=== PATIENT | female | born 1985 | race Two or more races ===

== ENCOUNTER 2017-08-01 13:39 | Inpatient (IN) | payer BC, OTHER ==
[2017-08-01] VITALS (10 sets, daily range): BP systolic 90–109; BP diastolic 52–80; PULSE 91–118; RESP 16–20; TEMP 97.4–98.9; O2SAT 97–100
[~2017-08-01] VITALS: Ht 167.6 cm; Wt 91.8 kg
[~2017-08-01 13:39] MED LIST: BROM5CAP PO; SPIR100 PO; VIIB40TA PO
[2017-08-01] MEDS ORDERED: SODIUM CHLOR 0.9% 1000 ML INJ 1,000 ML IV SCH (16:00)
[2017-08-01 16:33] LABS: HEMATOCRIT 23.6 % (35.0-46.0); HEMOGLOBIN 7.8 GM/DL (11.6-15.3); MEAN CELL VOLUME 114.7 FL (80.0-100.0); MEAN CORPUSCULAR HEMOGLOBIN 37.7 PG (27.0-34.0); MEAN CORPUSCULAR HGB CONC 32.9 % (32.0-36.0); MEAN PLATELET VOLUME 9.2 FL (7.0-11.0); PLATELET COUNT 193 TH/MM3 (150-450); RED BLOOD COUNT 2.06 MIL/MM3 (4.00-5.30); RED CELL DISTRIBUTION WIDTH 17.3 % (11.6-17.2); WHITE BLOOD COUNT 13.9 TH/MM3 (4.0-11.0)
[2017-08-01 16:41] LABS: INTERNATIONAL NORMALIZED RATIO 1.5 RATIO
--- NOTE | 2017-08-01 16:48 | PD ---
HPI Chief Complaint: Abdominal Pain Time Seen by Provider: 15:44 Travel History International Travel<30 days: No Contact w/Intl Traveler<30days: No Traveled to known affect area: No History of Present Illness HPI Patient is a 32-year-old female with history of asthma, benign pituitary adenoma , who presents the emergency room with complaints of abdominal pain with nausea and vomiting. Patient reports that for the over the past 9 months, she has been having abdominal pain with nausea and vomiting. Patient reports that she would have 3-4 episodes of nausea and vomiting per day. Patient reports that she did follow-up with her primary care doctor for this, she was worked up for hepatitis which was negative. The lab work was only positive for hyperlipidemia. Her primary care doctor did give her a prescription for a right upper quadrant ultrasound, patient reports that she has not gone for the ultrasound yet as she thought that the symptoms would resolve as they wax and wane. Patient reports that she became more concerned of her abdominal pain as she noticed that her skin turned yellow on Wednesday. Patient reports that yesterday, she appeared more bright yellow and became concerned. Patient currently complains of moderate diffuse abdominal pain with nausea and vomiting. Patient endorses that she does drink heavily on weekends, she usually has about 10 shots of heavy alcohol on , Fridays and Saturdays. PFSH Past Medical History Asthma: Yes Depression: Yes Diminished Hearing: No Endocrine: Yes (pituitary tumor) Respiratory: Yes (htn on meds) ?: Not LMP: few months ago irregular : 0 Past Surgical History Oral Surgery: Yes (tooth extraction) Tonsillectomy: Yes (AGE 3) Social History Alcohol Use: Yes (socially, beer or mix drinks) Tobacco Use: Yes (1 CIG PER MONTH) Substance Use: No Allergies-Medications (Allergen,Severity, Reaction): Coded Allergies: hydrocodone (Unverified Adverse Reaction, Unknown, N/V, 08/01/17) pt states does not have a allergy to this medicaton Jfoley 08/01/17 Reported Meds & Prescriptions Reported Meds & Active Scripts Active No Active Prescriptions or Reported Medications Review of Systems General / Constitutional: No: Fever Eyes: No: Visual changes HENT: No: Headaches Cardiovascular: No: Chest Pain or Discomfort Respiratory: No: Shortness of Breath Gastrointestinal: Positive: Nausea, Vomiting, Abdominal Pain Genitourinary: No: Dysuria Musculoskeletal: No: Pain Skin: No Rash Neurologic: No: Weakness Psychiatric: No: Depression Endocrine: No: Polydipsia Hematologic/Lymphatic: No: Easy Bruising Physical Exam Narrative GENERAL: Moderate distress SKIN: Focused skin assessment warm/dry. Patient jaundice HEAD: Atraumatic. Normocephalic. EYES: Pupils equal and round. Positive scleral icterus. No injection or drainage. ENT: No nasal bleeding or discharge. Mucous membranes pink and moist. NECK: Trachea midline. No JVD. CARDIOVASCULAR: Regular rate and rhythm. No murmur appreciated. RESPIRATORY: No accessory muscle use. Clear to auscultation. Breath sounds equal bilaterally. GASTROINTESTINAL: Abdomen soft, diffuse abdominal pain with greatest tenderness to the right upper quadrant, nondistended. Hepatic and splenic margins not palpable. MUSCULOSKELETAL: No obvious deformities. No clubbing. No cyanosis. No edema. NEUROLOGICAL: Awake and alert. No obvious cranial nerve deficits. Motor grossly within normal limits. Normal speech. PSYCHIATRIC: Appropriate mood and affect; insight and judgment normal. Data Data Last Documented VS Vital Signs Date Time Temp Pulse Resp B/P (MAP) Pulse Ox O2 Delivery O2 Flow Rate FiO2 08/01/17 18:00 100 16 97/57 (70) 97 Room Air 08/01/17 13:48 98.9 Orders Orders Urinalysis - C+S If Indicated (08/01/17 14:01) Ed Urine Pregnancytest Poc (08/01/17 14:01) Complete Blood Count With Diff (08/01/17 16:00) Comprehensive Metabolic Panel (08/01/17 16:00) Lipase (08/01/17 16:00) Prothrombin Time / Inr (Pt) (08/01/17 16:00) Act Partial Throm Time (Ptt) (08/01/17 16:00) Us Abdomen Gallbladder (08/01/17 ) Iv Access Insert/Monitor (08/01/17 16:00) Ecg Monitoring (08/01/17 16:00) Oximetry (08/01/17 16:00) NPO (08/01/17 16:00) Sodium Chlor 0.9% 1000 Ml Inj (Ns 1000 M (08/01/17 16:00) Sodium Chloride 0.9% Flush (Ns Flush) (08/01/17 16:00) Ketorolac Inj (Toradol Inj) (08/01/17 17:15) Morphine Inj (Morphine Inj) (08/01/17 17:15) Urine Culture (08/01/17 16:50) Ondansetron Inj (Zofran Inj) (08/01/17 17:30) Potassium Chlor 20 Meq Premix (Kcl 20 Me (08/01/17 17:45) Comprehensive Metabolic Panel (08/02/17 06:00) Admit Order (Ed Use Only) (08/01/17 17:54) Mri Mrcp W/O Contrast (08/01/17 ) Admit To Inpatient (08/01/17 ) Vital Signs (Adult) FOX.Q4H (08/01/17 17:53) Activity Oob With Assistance (08/01/17 17:53) Inpatient Certification (08/01/17 ) Blood Culture (08/01/17 17:58) Complete Blood Count With Diff (08/01/17 17:58) Ciprofloxacin 400 Mg Premix (Cipro 400 M (08/01/17 20:00) Metronidazole 500 Mg Inj (Flagyl 500 Mg (08/01/17 20:00) Ophthalmic Asst / Telemetry FOX.Q8H (08/01/17 18:00) Alcohol Withdrawal Asmt-Ciwa Q4HX18 (08/01/17 18:00) Flumazenil Inj (Romazicon Inj) (08/01/17 18:00) Lorazepam (Ativan) (08/01/17 18:00) Lorazepam Inj (Ativan Inj) (08/01/17 18:00) Lorazepam (Ativan) (08/01/17 18:00) Lorazepam Inj (Ativan Inj) (08/01/17 18:00) Lorazepam Inj (Ativan Inj) (08/01/17 18:00) Lorazepam Inj (Ativan Inj) (08/01/17 18:00) Diet Npo Except Meds (08/01/17 Dinner) Npo After Midnight W/ Po Meds (08/01/17 Dinner) Magnesium (Mg) (08/01/17 16:10) Morphine Inj (Morphine Inj) (08/01/17 18:00) Labs Laboratory Tests Test 08/01/17 16:10 08/01/17 16:50 08/01/17 18:00 White Blood Count 13.9 TH/MM3 12.5 TH/MM3 Red Blood Count 2.06 MIL/MM3 1.85 MIL/MM3 Hemoglobin 7.8 GM/DL 7.4 GM/DL Hematocrit 23.6 % 21.2 % Mean Corpuscular Volume 114.7 FL 115.1 FL Mean Corpuscular Hemoglobin 37.7 PG 40.2 PG Mean Corpuscular Hemoglobin Concent 32.9 % 34.9 % Red Cell Distribution Width 17.3 % 18.0 % Platelet Count 193 TH/MM3 160 TH/MM3 Mean Platelet Volume 9.2 FL 8.9 FL CBC Comment AUTO DIFF AUTO DIFF Differential Total Cells Counted 100 100 Neutrophils % (Manual) 83 % 86 % Band Neutrophils % 3 % 7 % Lymphocytes % 9 % 4 % Monocytes % 5 % 3 % Neutrophils # (Manual) 12.0 TH/MM3 11.6 TH/MM3 Differential Comment FINAL DIFF MANUAL FINAL DIFF MANUAL Platelet Estimate NORMAL NORMAL Platelet Morphology Comment NORMAL NORMAL Target Cells 1+ Keratocytes OCC Prothrombin Time 15.0 SEC Prothromb Time International Ratio 1.5 RATIO Activated Partial Thromboplast Time 27.1 SEC Blood Urea Nitrogen 7 MG/DL Creatinine 0.82 MG/DL Random Glucose 107 MG/DL Total Protein 7.0 GM/DL Albumin 2.5 GM/DL Calcium Level 8.6 MG/DL Magnesium Level 1.8 MG/DL Alkaline Phosphatase 240 U/L Aspartate Amino Transf (AST/SGOT) 224 U/L Alanine Aminotransferase (ALT/SGPT) 44 U/L Total Bilirubin 13.8 MG/DL Sodium Level 129 MEQ/L Potassium Level 2.3 MEQ/L Chloride Level 84 MEQ/L Carbon Dioxide Level 29.6 MEQ/L Anion Gap 15 MEQ/L Estimat Glomerular Filtration Rate 80 ML/MIN Lipase 375 U/L Urine Collection Type CLEAN CATCH Urine Color BROWN Urine Turbidity CLOUDY Urine pH 6.5 Urine Specific [place] 1.025 Urine Protein 100 mg/dL Urine Glucose (UA) 100 mg/dL Urine Ketones 15 mg/dL Urine Occult Blood TRACE Urine Nitrite POS Urine Bilirubin LARGE Urine Urobilinogen GREATER/EQUAL 8.0 MG/DL Urine Leukocyte Esterase TRACE Urine WBC 3-5 /hpf Urine Squamous Epithelial Cells 0-5 /hpf Urine Renal Epithelial Cells > 8 /hpf Urine Bacteria OCC /hpf Microscopic Urinalysis Comment CULTURE INDICATED Urine Collection Time 16:50 Stomatocytes 1+ MDM Medical Decision Making Medical Screen Exam Complete: Yes Emergency Medical Condition: Yes Medical Record Reviewed: Yes Interpretation(s) Vital Signs Date Time Temp Pulse Resp B/P (MAP) Pulse Ox O2 Delivery O2 Flow Rate FiO2 08/01/17 13:48 98.9 118 16 109/80 (90) 100 Differential Diagnosis Alcoholic hepatitis, primary biliary cholangitis, end-stage liver disease, acute cholangitis, viral hepatitis, biliary obstruction, Narrative Course During the course of the patients emergency department visit, the patients history, examination, and differential diagnosis were reviewed with the patient. The patient was placed on a cardiac care unit nurse with oximetry and frequent blood pressure monitoring. The patient had an IV access obtained and blood work sent for analysis. The patient was initially provided IV fluids as well as morphine for pain as per patient: she does not have allergy to hydrocodone, she asked for it not be given to her the last time because of the medication she was taking The patients laboratory studies were reviewed and remarkable for Laboratory Tests Test 08/01/17 16:10 08/01/17 16:50 White Blood Count 13.9 TH/MM3 (4.0-11.0) Red Blood Count 2.06 MIL/MM3 (4.00-5.30) Hemoglobin 7.8 GM/DL (11.6-15.3) Hematocrit 23.6 % (35.0-46.0) Mean Corpuscular Volume 114.7 FL (80.0-100.0) Mean Corpuscular Hemoglobin 37.7 PG (27.0-34.0) Mean Corpuscular Hemoglobin Concent 32.9 % (32.0-36.0) Red Cell Distribution Width 17.3 % (11.6-17.2) Platelet Count 193 TH/MM3 (150-450) Mean Platelet Volume 9.2 FL (7.0-11.0) CBC Comment AUTO DIFF Differential Total Cells Counted 100 Neutrophils % (Manual) 83 % (16-70) Band Neutrophils % 3 % (0-6) Lymphocytes % 9 % (9-44) Monocytes % 5 % (0-8) Neutrophils # (Manual) 12.0 TH/MM3 (1.8-7.7) Differential Comment FINAL DIFF MANUAL Platelet Estimate NORMAL (NORMAL) Platelet Morphology Comment NORMAL (NORMAL) Target Cells 1+ (NORMAL) Keratocytes OCC (NORMAL) Prothrombin Time 15.0 SEC (9.8-11.6) Prothromb Time International Ratio 1.5 RATIO Activated Partial Thromboplast Time 27.1 SEC (24.3-30.1) Blood Urea Nitrogen 7 MG/DL (7-18) Creatinine 0.82 MG/DL (0.50-1.00) Random Glucose 107 MG/DL (74-106) Total Protein 7.0 GM/DL (6.4-8.2) Albumin 2.5 GM/DL (3.4-5.0) Calcium Level 8.6 MG/DL (8.5-10.1) Alkaline Phosphatase 240 U/L (45-117) Aspartate Amino Transf (AST/SGOT) 224 U/L (15-37) Alanine Aminotransferase (ALT/SGPT) 44 U/L (10-53) Total Bilirubin 13.8 MG/DL (0.2-1.0) Sodium Level 129 MEQ/L (136-145) Potassium Level 2.3 MEQ/L (3.5-5.1) Chloride Level 84 MEQ/L (98-107) Carbon Dioxide Level 29.6 MEQ/L (21.0-32.0) Anion Gap 15 MEQ/L (5-15) Estimat Glomerular Filtration Rate 80 ML/MIN (>89) Lipase 375 U/L (73-393) Urine Collection Type CLEAN CATCH Urine Color BROWN (YELLW/STRAW) Urine Turbidity CLOUDY (CLEAR) Urine pH 6.5 (5.0-8.5) Urine Specific [place] 1.025 (1.002-1.035) Urine Protein 100 mg/dL (NEG-TRACE) Urine Glucose (UA) 100 mg/dL (NEG) Urine Ketones 15 mg/dL (NEG) Urine Occult Blood TRACE (NEG) Urine Nitrite POS (NEG) Urine Bilirubin LARGE (NEG) Urine Urobilinogen GREATER/EQUAL 8.0 MG/DL Urine Leukocyte Esterase TRACE (NEG) Urine WBC 3-5 /hpf (0-5) Urine Squamous Epithelial Cells 0-5 /hpf (0-5) Urine Renal Epithelial Cells > 8 /hpf (NONE) Urine Bacteria OCC /hpf (NONE) Microscopic Urinalysis Comment CULTURE INDICATED Urine Collection Time 16:50 Radiology studies were reviewed and remarkable for Right upper quadrant ultrasound significant for moderate distended gallbladder and common bile duct. These findings are concerning for acute distal common bile duct obstruction. Patient will require admission to the hospital for ERCP /MRCP and for repletion of electrolytes Case reviewed with Dr. Dailey who accepts pt to service, [facility] Patient aware of diagnosis and treatment plan and is agreeable to [facility] case reviewed with Dr. Sofia with GI, will hold on transfer pending MRCP - if patient requires ERCP, then will [facility], if not, will be admitted here at [facility] Narrative Aggregate critical care time was 30 minutes. Time to perform other separately billable procedures was not included in the critical care time. My time did not include minutes spent treating any other patients simultaneously or on activities that did not directly contribute to the patient's treatment. The services I provided to this patient were to treat and/or prevent clinically significant deterioration that could result in: , decompensation, deterioration I provided critical care services requiring my management, as noted below: Chart data review, documentation time, medication orders and management, vital sign assessments/reviewing monitor data, ordering and reviewing lab tests, ordering and interpreting/reviewing x-rays and diagnostic studies, care of the patient and discussion of the patient with the admitting physicians. Diagnosis Primary Impression: Common bile duct (CBD) obstruction Additional Impressions: Transaminitis Anemia Hyperbilirubinemia Hypokalemia Hyponatremia Admitting Information Admitting Physician Requests: Admit Scripts No Active Prescriptions or Reported Meds Yennifer Cohn DO Aug 01, 2017 16:48
[2017-08-01 16:55] LABS: ALBUMIN 2.5 GM/DL (3.4-5.0); ALKALINE PHOSPHATASE 240 U/L (45-117); ALT (GPT) 44 U/L (10-53); AST (GOT) 224 U/L (15-37); BICARBONATE 29.6 MEQ/L (21.0-32.0); BLOOD UREA NITROGEN 7 MG/DL (7-18); CALCIUM 8.6 MG/DL (8.5-10.1); CHLORIDE 84 MEQ/L (98-107); CREATININE 0.82 MG/DL (0.50-1.00); GLOMERULAR FILTRATION RATE 80 ML/MIN (>89); GLUCOSE,RANDOM 107 MG/DL (74-106); SODIUM (NA) 129 MEQ/L (136-145); TOTAL BILIRUBIN ADULT 13.8 MG/DL (0.2-1.0)
[2017-08-01 17:10] LABS: BILIRUBIN, URINE LARGE (NEG); BLOOD, URINE TRACE (NEG); GLUCOSE,URINE 100 mg/dL (NEG); KETONE, URINE 15 mg/dL (NEG); NITRITE,URINE POS (NEG); PH, URINE 6.5 (5.0-8.5); URINE LEUKOCYTE ESTERASE TRACE (NEG)
[2017-08-01 17:12] LABS: URINE COLOR BROWN (YELLW/STRAW)
[2017-08-01 17:15] LABS: BACTERIA, URINE OCC /hpf; RENAL EPITHELIAL CELLS > 8 /hpf; SQUAMOUS EPITHELIAL CELL URINE 0-5 /hpf (0-5)
[2017-08-01] MEDS ORDERED: KETOROLAC TROMETHAMINE 30 MG/ML (IVP) VIAL IV PUSH ONE (17:15)
[2017-08-01] MEDS ORDERED: MORPHINE SULFATE 4 MG/ML INJ IV PUSH ONE (17:15)
[2017-08-01] MEDS ORDERED: ONDANSETRON HCL 4 MG/2 ML VIAL IV PUSH ONE (17:30)
[2017-08-01] MEDS: POTASSIUM CHLOR 20 MEQ PREMIX 100 ML IV SCH ×2 (17:36→20:21)
[2017-08-01 17:37] LABS: BANDS 3 % (0-6); LYMPHOCYTES 9 % (9-44); MONOCYTES 5 % (0-8); POLYS (SEG NEUTROPHILS) 83 % (16-70); TARGET CELLS 1+ (NORMAL)
[2017-08-01 17:38] LABS: KERATOCYTES OCC (NORMAL)
--- NOTE | 2017-08-01 17:41 | RADRPT ---
EXAM DATE/TIME: 08/01/2017 17:01 [facility] COMPARISON: No previous studies available for comparison. INDICATIONS : Right upper quadrant pain. MEDICAL HISTORY : Asthma. Irregular menstrual period. Depression. Pituitary tumor. SURGICAL HISTORY : Tonsillectomy. Tooth extraction. ENCOUNTER: Initial ACUITY: 3 days PAIN SCORE: 10/10 LOCATION: Right upper quadrant MEASUREMENTS: LIVER: 22.2 cm length COMMON DUCT: 12 mm RIGHT KIDNEY: 12.5 x 5.6 x 4.7 cm FINDINGS: LIVER: Diffusely echogenic and enlarged liver without intrahepatic ductal dilatation or gross mass. The port al vein appears to be hepatofugal with diminished flow. COMMON DUCT: No intraluminal mass or stone visualized. GALLBLADDER: Gallbladder is moderately distended with mild diffuse gall bladder wall thickening and contains sludg e dependently. Electrical Test Engineer reports a positive Rojas's sign. PANCREAS: Not well demonstrated. RIGHT KIDNEY: No evidence of hydronephrosis, stone, or mass. CONCLUSION: 1. Hepatomegaly with diffusely echogenic hepatic parenchyma. Diminished hepatofugal flow in the amie l vein. Overall findings may reflect subacute hepatitis versus profound hepatic steatosis versus medi favian liver disease. 2. Moderately distended gallbladder and common bile duct. Findings are concerning for acute distal CB D obstruction. Consider MRCP or ERCP examination for further evaluation. 3. Gallbladder sludge with mild diffuse gallbladder wall prominence. These findings are routinely see n in patients with chronic liver disease and significantly limit overall sonographic sensitivity for acute cholecystitis. Thompson Mcguire MD on August 01, 2017 at 17:31 Board Certified Radiologist. This report was verified electronically.
[2017-08-01] MEDS ORDERED: LORazepam 1 MG TAB PO PRN (18:00)
[2017-08-01] MEDS ORDERED: FLUMAZENIL 0.5 MG/5 ML VIAL IV PUSH PRN (18:00)
[2017-08-01] MEDS ORDERED: LORazepam 2 MG TAB PO PRN (18:00)
[2017-08-01] MEDS ORDERED: LORazepam 2 MG/ML VIAL IV PUSH PRN ×3 (18:00)
[2017-08-01] MEDS ORDERED: CHOLESTYRAMINE 4 GM PACKET PO ONE (18:15)
[2017-08-01 18:16] LABS: HEMATOCRIT 21.2 % (35.0-46.0); HEMOGLOBIN 7.4 GM/DL (11.6-15.3); MEAN CELL VOLUME 115.1 FL (80.0-100.0); MEAN CORPUSCULAR HEMOGLOBIN 40.2 PG (27.0-34.0); MEAN CORPUSCULAR HGB CONC 34.9 % (32.0-36.0); MEAN PLATELET VOLUME 8.9 FL (7.0-11.0); PLATELET COUNT 160 TH/MM3 (150-450); RED BLOOD COUNT 1.85 MIL/MM3 (4.00-5.30); WHITE BLOOD COUNT 12.5 TH/MM3 (4.0-11.0)
[2017-08-01 18:27] LABS: MAGNESIUM 1.8 MG/DL (1.5-2.5)
[2017-08-01 19:15] LABS: BANDS 7 % (0-6); LYMPHOCYTES 4 % (9-44); MONOCYTES 3 % (0-8); NEUTROPHIL # MANUAL DIFF 11.6 TH/MM3 (1.8-7.7); POLYS (SEG NEUTROPHILS) 86 % (16-70); STOMATOCYTES 1+ (NORMAL)
[2017-08-01] MEDS: PANTOPRAZOLE SOD 40 MG DELAYED RELEASE TAB PO SCH (19:21)
[2017-08-01] MEDS ORDERED: 1/2 NS + KCL 20 MEQ INJ 1,000 ML IV SCH (20:00)
[2017-08-01] MEDS ORDERED: SODIUM CHLOR 0.9% 1000 ML INJ 1,000 ML IV ONE (20:00)
[2017-08-01] MEDS: CIPROFLOXACIN 400 MG PREMIX 200 ML IV SCH (20:21)
--- NOTE | 2017-08-01 20:32 | RADRPT ---
EXAM DATE/TIME: 08/01/2017 19:59 [facility] COMPARISON: US ABDOMEN - GALLBLADDER, August 01, 2017, 17:01. INDICATIONS : Obstruction. MEDICAL HISTORY : Pituitary adenoma. SURGICAL HISTORY : Tonsillectomy. ENCOUNTER: Initial ACUITY: 4-6 days PAIN SCORE: 5/10 LOCATION: Right upper quadrant. TECHNIQUE: Multiplanar, multisequence magnetic resonance imaging of the abdomen was performed. High-resolution 3D dataset was utilized to reconstruct maximum-intensity projection (MIP) images. FINDINGS: INTRAHEPATIC BILE DUCTS: Within normal limits. No significant anatomical variant is present. EXTRAHEPATIC BILE DUCTS: Lumbar like appears normal in caliber measuring up to 3 mm. No focal intraductal abnormality. GALLBLADDER: Gallbladder is at least moderately distended without evidence for stone or focal intraluminal abnorma lity. There is trace pericholecystic fluid. LIVER: Liver is diffusely enlarged without focal lesion PANCREAS: The main pancreatic duct is normal in size. There is no significant anatomical variant. Signal inte nsity is within normal limits. No mass is visualized on this non-contrast exam. OTHER: The remaining visualized structures demonstrate no acute abnormality on this non-contrast exam. CONCLUSION: 1. Common bile duct is normal in caliber without focal intraductal abnormality. 2. Moderate gallbladder distention with trace pericholecystic fluid. This does raise the possibility for acute cholecystitis in the appropriate clinical setting. Consider HIDA scan to document cystic du ct patency if there is persistent significant clinical concern. 3. Diffuse hepatomegaly similar to ultrasound exam. Again, differential considerations include profou nd hepatic steatosis versus medical liver disease versus subacute hepatitis given findings of diminis hed hepatopedal flow on ultrasound. Thompson Mcguire MD on August 01, 2017 at 20:20 Board Certified Radiologist. This report was verified electronically.
[2017-08-01] MEDS: metroNIDAZOLE 500 MG INJ 100 ML IV SCH (21:41)
[2017-08-01] MEDS: MORPHINE SULFATE 4 MG/ML INJ IV PUSH PRN (22:03)
[2017-08-01] MEDS: 1/2 NS + KCL 20 MEQ INJ 1,000 ML IV SCH (22:04)
[2017-08-02] VITALS (7 sets, daily range): BP systolic 87–95; BP diastolic 52–65; PULSE 69–102; RESP 18–20; TEMP 97.9–99.2; O2SAT 93–97
[2017-08-02] MEDS: LORazepam 2 MG/ML VIAL IV PUSH PRN (00:20)
[2017-08-02] MEDS: SODIUM CHLORIDE 0.9% FLUSH 10 ML FLUSH IV FLUSH PRN ×3 (00:20→18:06)
[2017-08-02] MEDS: MORPHINE SULFATE 4 MG/ML INJ IV PUSH PRN ×4 (03:43→22:01)
[2017-08-02] MEDS: metroNIDAZOLE 500 MG INJ 100 ML IV SCH ×3 (03:44→20:26)
[2017-08-02 06:04] LABS: AUTOMATED NEUTROPHIL # 8.8 TH/MM3 (1.8-7.7); BASOPHIL % 0.3 % (0.0-2.0); EOSINOPHIL # 0.1 TH/MM3 (0-0.4); EOSINOPHIL % 0.5 % (0.0-4.0); LYMPH % 14.1 % (9.0-44.0); LYMPHOCYTE # 1.5 TH/MM3 (1.0-4.8); MEAN CELL VOLUME 114.3 FL (80.0-100.0); MEAN CORPUSCULAR HEMOGLOBIN 37.4 PG (27.0-34.0); MEAN CORPUSCULAR HGB CONC 32.7 % (32.0-36.0); MEAN PLATELET VOLUME 8.3 FL (7.0-11.0); MONO % 3.5 % (0.0-8.0); MONOCYTE # 0.4 TH/MM3 (0-0.9); NEUT % 81.6 % (16.0-70.0); PLATELET COUNT 148 TH/MM3 (150-450); RED BLOOD COUNT 1.71 MIL/MM3 (4.00-5.30); RED CELL DISTRIBUTION WIDTH 17.7 % (11.6-17.2); WHITE BLOOD COUNT 10.8 TH/MM3 (4.0-11.0)
[2017-08-02 06:08] LABS: HEMOGLOBIN 6.4 GM/DL (11.6-15.3)
[2017-08-02 06:09] LABS: HEMATOCRIT 19.6 % (35.0-46.0)
[2017-08-02 06:28] LABS: STOMATOCYTES 1+ (NORMAL); TEARDROP RBCS 1+ (NORMAL)
[2017-08-02] MEDS ORDERED: SODIUM CHLOR 0.9% 250 ML INJ 250 ML IV ONE (06:30)
[2017-08-02 07:08] LABS: ALBUMIN 2.2 GM/DL (3.4-5.0); ALKALINE PHOSPHATASE 182 U/L (45-117); ALT (GPT) 36 U/L (10-53); AST (GOT) 180 U/L (15-37); BICARBONATE 30.6 MEQ/L (21.0-32.0); BLOOD UREA NITROGEN 9 MG/DL (7-18); CALCIUM 7.6 MG/DL (8.5-10.1); CHLORIDE 92 MEQ/L (98-107); CREATININE 0.59 MG/DL (0.50-1.00); GLOMERULAR FILTRATION RATE 117 ML/MIN (>89); GLUCOSE,RANDOM 80 MG/DL (74-106); SODIUM (NA) 133 MEQ/L (136-145); TOTAL BILIRUBIN ADULT 11.7 MG/DL (0.2-1.0)
[2017-08-02] MEDS: PANTOPRAZOLE SOD 40 MG DELAYED RELEASE TAB PO SCH (08:39)
--- NOTE | 2017-08-02 08:41 | HHI.HP ---
[facility] Service [facility] Primary Care Physician Missy Valadez M.D. Admission Diagnosis CBD obstruction, hypokalemia, hepatitis Diagnoses: Chief Complaint: Abdominal pain Travel History International Travel<30 Days: No Contact w/Intl Traveler <30 Da: No Traveled to Known Affected Are: No History of Present Illness 32-year-old female admitted for intractable abdominal pain Patient was in her usual state of health until sometime around last December she began experiencing intermittent abdominal pain that would come for 2-3 weeks and then disappear. She would take about 2 pills of Aleve every other day for 4 days when her pain cycles would happen. However within the last month her pain has now become constant and radiates throughout her entire abdomen. Around this timeframe she also noted having bright red blood per rectum along with black tarry stools. She has not been taking Aleve for any NSAIDs for the past month. Within the last 2 weeks she started having persistent nausea and vomiting with bilious emesis along with intermittent bloody specks noted. About 1 week ago she noticed that she turned yellow and her abdominal pain progressed. Within the last 3 days she noted her abdomen became very bloated and it was very painful to move around or bend forward or even get up from a toilet seat. Thus she decided come to the emergency department today. She reports having night sweats and no chills. Emergency department the patient was noted to have an elevated white count of 13 K, gallbladder ultrasound was suggestive of CBD obstruction. Potassium was 2.3. Social history: denies taking any Tylenol. Patient does report that she drinks 8-9 shots a day for 3-4 days a week and says she has been doing this for months. Says she stopped smoking marijuana about 8-9 months ago. Has been smoking on and off a few cigarettes a day since her late teenage years. Does not see primary care physician regularly. Medical history: Had been treated with bromocriptine for pituitary adenoma, was discontinued off medication by physician. Says she has been diagnosed at [facility] in [place] for celiac disease. Family history: HTN Review of Systems Except as stated in HPI: all other systems reviewed are Neg Past Family Social History Allergies: Coded Allergies: No Known Allergies (Unverified , 08/04/17) Physical Exam Vital Signs Vital Signs Date Time Temp Pulse Resp B/P (MAP) Pulse Ox O2 Delivery O2 Flow Rate FiO2 08/02/17 04:43 20 08/02/17 04:17 98.3 97 20 95/52 (66) 95 08/01/17 23:30 97.4 91 20 99/61 (74) 98 08/01/17 23:28 92 08/01/17 23:00 90 18 90/52 (65) 98 08/01/17 21:55 92 18 99/58 (72) 99 Room Air 08/01/17 19:08 96 16 92/54 (67) 97 Room Air 08/01/17 18:00 100 16 97/57 (70) 97 Room Air 08/01/17 17:20 98 17 107/59 (75) 99 Room Air 08/01/17 17:09 101 18 95/62 (73) 97 Room Air 08/01/17 16:00 97 Room Air 08/01/17 13:48 98.9 118 16 109/80 (90) 100 Physical Exam VS: afebrile GENERAL: Lying in bed, mild distress secondary to pain SKIN: Jaundiced EYES: + scleral icterus. No injection or drainage. ENT: No nasal bleeding or discharge. Mucous membranes pink and moist. CARDIOVASCULAR: Regular rate and rhythm. no murmurs RESPIRATORY: No accessory muscle use. Clear to auscultation. Breath sounds equal bilaterally. GASTROINTESTINAL: Abdomen soft, mild diffuse abdominal distention, diffuse abdominal mild to moderate tenderness to palpation Extremities: No clubbing, cyanosis, or edema. No obvious deformities. MUSCULOSKELETAL: adequate muscle bulk and tone for age and habitus NEUROLOGICAL: Awake and alert. No obvious cranial nerve deficits. No facial droop nor slurred speech noted. PSYCHIATRIC: Appropriate mood and affect; insight and judgment normal. Laboratory Laboratory Tests Test 08/01/17 16:10 08/01/17 16:50 08/01/17 18:00 08/01/17 21:51 White Blood Count 13.9 12.5 Red Blood Count 2.06 1.85 Hemoglobin 7.8 7.4 Hematocrit 23.6 21.2 Mean Corpuscular Volume 114.7 115.1 Mean Corpuscular Hemoglobin 37.7 40.2 Mean Corpuscular Hemoglobin Concent 32.9 34.9 Red Cell Distribution Width 17.3 18.0 Platelet Count 193 160 Mean Platelet Volume 9.2 8.9 CBC Comment AUTO DIFF AUTO DIFF Differential Total Cells Counted 100 100 Neutrophils % (Manual) 83 86 Band Neutrophils % 3 7 Lymphocytes % 9 4 Monocytes % 5 3 Neutrophils # (Manual) 12.0 11.6 Differential Comment FINAL DIFF MANUAL FINAL DIFF MANUAL Platelet Estimate NORMAL NORMAL Platelet Morphology Comment NORMAL NORMAL Target Cells 1+ Keratocytes OCC Prothrombin Time 15.0 Prothromb Time International Ratio 1.5 Activated Partial Thromboplast Time 27.1 Blood Urea Nitrogen 7 Creatinine 0.82 Random Glucose 107 Total Protein 7.0 Albumin 2.5 Calcium Level 8.6 Magnesium Level 1.8 Alkaline Phosphatase 240 Aspartate Amino Transf (AST/SGOT) 224 Alanine Aminotransferase (ALT/SGPT) 44 Total Bilirubin 13.8 Sodium Level 129 Potassium Level 2.3 2.7 Chloride Level 84 Carbon Dioxide Level 29.6 Anion Gap 15 Estimat Glomerular Filtration Rate 80 Lipase 375 Urine Collection Type CLEAN CATCH Urine Color BROWN Urine Turbidity CLOUDY Urine pH 6.5 Urine Specific [place] 1.025 Urine Protein 100 Urine Glucose (UA) 100 Urine Ketones 15 Urine Occult Blood TRACE Urine Nitrite POS Urine Bilirubin LARGE Urine Urobilinogen GREATER/EQUAL 8.0 Urine Leukocyte Esterase TRACE Urine WBC 3-5 Urine Squamous Epithelial Cells 0-5 Urine Renal Epithelial Cells > 8 Urine Bacteria OCC Microscopic Urinalysis Comment CULTURE INDICATED Urine Collection Time 16:50 Stomatocytes 1+ Test 08/02/17 05:50 White Blood Count 10.8 Red Blood Count 1.71 Hemoglobin 6.4 Hematocrit 19.6 Mean Corpuscular Volume 114.3 Mean Corpuscular Hemoglobin 37.4 Mean Corpuscular Hemoglobin Concent 32.7 Red Cell Distribution Width 17.7 Platelet Count 148 Mean Platelet Volume 8.3 Neutrophils (%) (Auto) 81.6 Lymphocytes (%) (Auto) 14.1 Monocytes (%) (Auto) 3.5 Eosinophils (%) (Auto) 0.5 Basophils (%) (Auto) 0.3 Neutrophils # (Auto) 8.8 Lymphocytes # (Auto) 1.5 Monocytes # (Auto) 0.4 Eosinophils # (Auto) 0.1 Basophils # (Auto) 0.0 CBC Comment AUTO DIFF Differential Comment AUTO DIFF CONFIRMED Platelet Estimate LOW Platelet Morphology Comment NORMAL Tear Drop Cells 1+ Stomatocytes 1+ Blood Urea Nitrogen 9 Creatinine 0.59 Random Glucose 80 Total Protein 6.0 Albumin 2.2 Calcium Level 7.6 Alkaline Phosphatase 182 Aspartate Amino Transf (AST/SGOT) 180 Alanine Aminotransferase (ALT/SGPT) 36 Total Bilirubin 11.7 Sodium Level 133 Potassium Level 2.6 Chloride Level 92 Carbon Dioxide Level 30.6 Anion Gap 10 Estimat Glomerular Filtration Rate 117 Date/Time Source Procedure Growth Status 08/01/17 18:05 Blood Peripheral Aerobic Blood Culture Pending Received 08/01/17 18:05 Blood Peripheral Anaerobic Blood Culture Pending Received 08/01/17 16:50 Urine Clean Catch Urine Culture Pending Received Result Diagram: 08/02/17 0550 08/02/17 0550 Imaging Last Impressions Gall Bladder Ultrasound 08/01/17 0000 Signed Impressions: Service Date/Time: Tuesday, August 01, 2017 17:01 - CONCLUSION: 1. Hepatomegaly with diffusely echogenic hepatic parenchyma. Diminished hepatofugal flow in the portal vein. Overall findings may reflect subacute hepatitis versus profound hepatic steatosis versus medical liver disease. 2. Moderately distended gallbladder and common bile duct. Findings are concerning for acute distal CBD obstruction. Consider MRCP or ERCP examination for further evaluation. 3. Gallbladder sludge with mild diffuse gallbladder wall prominence. These findings are routinely seen in patients with chronic liver disease and significantly limit overall sonographic sensitivity for acute cholecystitis. Thompson Mcguire MD Cholangiopancreatography MRI 08/01/17 0000 Signed Impressions: Service Date/Time: Tuesday, August 01, 2017 19:59 - CONCLUSION: 1. Common bile duct is normal in caliber without focal intraductal abnormality. 2. Moderate gallbladder distention with trace pericholecystic fluid. This does raise the possibility for acute cholecystitis in the appropriate clinical setting. Consider HIDA scan to document cystic duct patency if there is persistent significant clinical concern. 3. Diffuse hepatomegaly similar to ultrasound exam. Again, differential considerations include profound hepatic steatosis versus medical liver disease versus subacute hepatitis given findings of diminished hepatopedal flow on ultrasound. MD Rakel Hahn VTE Risk Assessment Caprini VTE Risk Assessment: Mod/High Risk (score >= 2) VTE Pharm Contraindication: Active bleeding Caprini Risk Assessment Model Point Value = 1 Point Value = 2 Point Value = 3 Point Value = 5 Age 41-60 Minor surgery BMI > 25 kg/m2 Swollen legs Varicose veins or History of unexplained or recurrent spontaneous Oral contraceptives or hormone replacement Sepsis (< 1 month) Serious lung disease, including pneumonia (< 1 month) Abnormal pulmonary function Acute myocardial infarction Congestive heart failure (< 1 month) History of inflammatory bowel disease Medical patient at bed rest Age 61-74 Arthroscopic surgery Major open surgery (> 45 min) Laparoscopic surgery (> 45 min) Malignancy Confined to bed (> 72 hours) Immobilizing plaster cast Central venous access Age >= 75 History of VTE Family history of VTE Factor V Leiden Prothrombin 54225H Lupus anticoagulant Anticardiolipin antibodies Elevated serum homocysteine Heparin-induced thrombocytopenia Other congenital or acquired thrombophilia Stroke (< 1 month) Elective arthroplasty Hip, pelvis, or leg fracture Acute spinal cord injury (< 1 month) Prophylaxis Regimen Total Risk Factor Score Risk Level Prophylaxis Regimen 0-1 Low Early ambulation 2 Moderate Order ONE of the following: *Sequential Compression Device (SCD) *Heparin 5000 units SQ BID 3-4 Higher Order ONE of the following medications: *Heparin 5000 units SQ TID *Enoxaparin/Lovenox 40 mg SQ daily (WT < 150 kg, CrCl > 30 mL/min) *Enoxaparin/Lovenox 30 mg SQ daily (WT < 150 kg, CrCl > 10-29 mL/min) *Enoxaparin/Lovenox 30 mg SQ BID (WT < 150 kg, CrCl > 30 mL/min) AND/OR *Sequential Compression Device (SCD) 5 or more Highest Order ONE of the following medications: *Heparin 5000 units SQ TID (Preferred with Epidurals) *Enoxaparin/Lovenox 40 mg SQ daily (WT < 150 kg, CrCl > 30 mL/min) *Enoxaparin/Lovenox 30 mg SQ daily (WT < 150 kg, CrCl > 10-29 mL/min) *Enoxaparin/Lovenox 30 mg SQ BID (WT < 150 kg, CrCl > 30 mL/min) AND *Sequential Compression Device (SCD) Assessment and Plan Assessment and Plan 32-year-old female being admitted for intractable abdominal pain Intractable abdominal pain -Likely multifactorial with possible cholecystitis/acute cholangitis along with 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 with acute hepatitis flare as well as possible peptic ulcers given history of hematemesis and melena -MRCP which was ordered is unremarkable for any intraductal obstruction -We will consider HIDA scan for possible cholecystitis as this cannot be ruled out based upon the ultrasound findings -Pain may also be multifactorial with elements of PUD with active bleeding; -Avoid Tylenol, pain control with morphine and oxycodone -Cipro and Flagyl until etiologies further pinpointed Suspected upper GI bleed -Starting octreotide given history of heavy alcohol use, starting Protonix -Ordering 2 units of blood to be transfused, pharmacy notified as well as blood bank -Trend CBC Hypokalemia -Magnesium within normal limits, 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 In the case of services not specified as inpatient-only, they are appropriately provided as inpatient services in accordance with the 2-midnight benchmark. Estimated LOS (days): 3 3 days is the estimated time the patient will need to remain in the hospital, assuming treatment plan goals are met and no additional complications. Post-Hospital Plan: Not yet determined Davin Dailey MD Aug 02, 2017 08:41
[2017-08-02] MEDS: CIPROFLOXACIN 400 MG PREMIX 200 ML IV SCH ×2 (08:42→20:27)
[2017-08-02] MEDS: ONDANSETRON HCL 4 MG/2 ML VIAL IV PUSH PRN ×2 (08:57→20:28)
[2017-08-02] MEDS ORDERED: INFLUENZA VIRUS VACCINE (QUADRIVALENT) 0.5 ML SYR IM ONE (09:00)
[2017-08-02] MEDS: CHOLESTYRAMINE 4 GM PACKET PO SCH (09:00)
[2017-08-02] MEDS ORDERED: OCTREOTIDE INJ 100 MCG/ML VIAL IV PUSH ONE (09:00)
[2017-08-02] MEDS ORDERED: PANTOPRAZOLE INJ 80 MG in SODIUM CHLORIDE 0.9% INJ 35 ML IV ONE (10:00)
[2017-08-02] MEDS: PANTOPRAZOLE INJ 80 MG in SODIUM CHLORIDE 0.9% INJ 100 ML IV SCH ×2 (10:44→21:58)
[2017-08-02] MEDS: OCTREOTIDE INJ 500 MCG in SODIUM CHLORID 0.9% 500 ML INJ 499.5 ML IV SCH (10:48)
[2017-08-02] MEDS ORDERED: SINCALIDE 5 MCG/5 ML VIAL IV ONE (14:30)
--- NOTE | 2017-08-02 17:46 | RADRPT ---
EXAM DATE/TIME: 08/02/2017 13:49 This report includes an Addendum and supersedes previous reports for this exam. [facility] COMPARISON: US ABDOMEN - GALLBLADDER, August 01, 2017, 17:01. INDICATIONS : Abdominal pain radiating throughout abdomen with vomiting and black, tarry stools. DOSE: 4.4 mCi Tc99m Mebrofenin IV MEDICAL HISTORY : Hypercholesterolemia. Hypertension. SURGICAL HISTORY : Tonsillectomy. ENCOUNTER: Initial ACUITY: 4 - 6 days PAIN SCALE: 10/10 LOCATION: Right upper quadrant TECHNIQUE: Following the intravenous administration of radiotracer, dynamic sequential images were performed wit h continuous acquisition. FINDINGS: There is slow uptake of radiotracer in the hepatic parenchyma from peak activity seen at 30 minutes. Some residual cardiac blood pool activity is seen throughout the study. No significant excretion of radiotracer is seen during 96 minutes of continuous observation. Less than 5% decrease in the amoun t of activity when compared to peak. There is some vicarious excretion of radiotracer into the urina ry bladder. No activity seen within the gallbladder. CONCLUSION: 1. Extremely poor hepatocyte function with persistent blood pool activity and no significant excretio n from the parenchyma during 96 minutes of continuous observation. 2. Due to the hepatocellular dysfunction, evaluation of the gallbladder cannot be performed. Den Juarez MD on August 02, 2017 at 17:41 Board Certified Radiologist. This report was verified electronically. ADDENDUM: COMPARISON: MRCP W/O CONTRAST, August 01, 2017, 19:59. The patient returned for 18 hour delayed images. Much of the activity is still within the liver consi stent with poor hepatic function. There does appear to be some activity seen in the gallbladder. Zaheer Oates MD on August 03, 2017 at 8:45 Board Certified Radiologist. This report was verified electronically.
[2017-08-02] MEDS: 1/2 NS + KCL 20 MEQ INJ 1,000 ML IV SCH (20:26)
[2017-08-02] MEDS: THIAMINE INJ 100 MG in SODIUM CHLORIDE 0.9% INJ 100 ML IV SCH (20:27)
--- NOTE | 2017-08-02 21:12 | EKG ---
Date Performed: 08/01/2017 Time Performed: 19:09:19 PTAGE: 32 years EKG: Sinus rhythm NONSPECIFIC T-WAVE ABNORMALITY BORDERLINE ECG PREVIOUS TRACING : 05/20/2013 00.50 Since the previous tracing, no significant change noted DOCTOR: Gordon Connolly Interpretating Date/Time 08/02/2017 21:12:03
[2017-08-02] MEDS ORDERED: POTASSIUM CHLORIDE 25 MEQ EFFERVESCENT TAB PO ONE (22:30)
[2017-08-03] VITALS: BP 91/50; PULSE 93; RESP 20; TEMP 98.8; O2SAT 95
[2017-08-03] MEDS: MORPHINE SULFATE 4 MG/ML INJ IV PUSH PRN ×6 (02:18→22:32)
[2017-08-03] MEDS: metroNIDAZOLE 500 MG INJ 100 ML IV SCH ×3 (04:59→20:04)
[2017-08-03 06:43] LABS: HEMATOCRIT 26.5 % (35.0-46.0); HEMOGLOBIN 8.7 GM/DL (11.6-15.3); MEAN CORPUSCULAR HEMOGLOBIN 34.3 PG (27.0-34.0); MEAN PLATELET VOLUME 8.8 FL (7.0-11.0); PLATELET COUNT 159 TH/MM3 (150-450); RED BLOOD COUNT 2.55 MIL/MM3 (4.00-5.30); RED CELL DISTRIBUTION WIDTH 25.6 % (11.6-17.2); WHITE BLOOD COUNT 10.3 TH/MM3 (4.0-11.0)
[2017-08-03] MEDS: PANTOPRAZOLE INJ 80 MG in SODIUM CHLORIDE 0.9% INJ 100 ML IV SCH ×3 (06:48→20:37)
[2017-08-03 07:02] VITALS: BP 95/62; PULSE 96; RESP 20; TEMP 98.8; O2SAT 93
[2017-08-03 07:03] LABS: ALBUMIN 2.3 GM/DL (3.4-5.0); BICARBONATE 27.9 MEQ/L (21.0-32.0); CALCIUM 7.2 MG/DL (8.5-10.1); CREATININE 0.62 MG/DL (0.50-1.00)
[2017-08-03 07:19] LABS: CALCIUM-PROTEIN CORRECTED 7.7 MG/DL (8.5-10.1); TOTAL BILIRUBIN ADULT 15.7 MG/DL (0.2-1.0); TOTAL PROTEIN 6.1 GM/DL (6.4-8.2)
[2017-08-03 07:22] LABS: BANDS 1 % (0-6); CORRECTED NUCLEATED RBC 1 /100 WBC (0-0); LYMPHOCYTES 14 % (9-44); MONOCYTES 2 % (0-8); NEUTROPHIL # MANUAL DIFF 8.7 TH/MM3 (1.8-7.7); NUCLEATED RED BLOOD CELL 1 (0-0); POLYS (SEG NEUTROPHILS) 83 % (16-70)
[2017-08-03 07:23] LABS: TARGET CELLS 1+ (NORMAL)
--- NOTE | 2017-08-03 07:24 | GIPROC ---
[facility] [address] [place] [address], [id number] EGD PROCEDURE REPORT EXAM DATE: 08/03/2017 PATIENT NAME: Elvira Valladares MR #: [id number] BIRTHDATE: 1985 ATTENDING: Tiffany Marmolejo MD ORDER #: [id number] SALES ACCOUNT MANAGER: Scott Montenegro and Prabha Lopez STATUS: inpatient INDICATIONS: The patient is a 32 yr old female here for an EGD due to anemia, abdominal pain, elevated lfts PROCEDURE PERFORMED: EGD w/ biopsy MEDICATIONS: None and Per Anesthesia. TOPICAL ANESTHETIC: none CONSENT: The patient understands the risks and benefits of the procedure and understands that these risks include, but are not limited to: sedation, allergic reaction, infection, perforation and/or bleeding. Alternative means of evaluation and treatment include, among others: physical exam, x-rays, and/or surgical intervention. The patient elects to proceed with this endoscopic procedure. medical equipment was checked for proper function. Hand hygiene and appropriate measures for infection prevention was taken. After the risks, benefits and alternatives of the procedure were thoroughly explained, Informed consent was verified, confirmed and timeout was successfully executed by the treatment team. The patient was anesthetized with topical anesthesia and the Pentax EG-[id number] endoscope was introduced through the mouth and advanced to the second portion of the duodenum. Retroflexed views revealed a hiatal hernia The gastroscope was then slowly withdrawn and removed. Duodenitis bulb and second portion-biopsy gastritis antum-biopsy irregular z line-biopsy. ADVERSE EVENTS: There were no complications. IMPRESSIONS: 1. Duodenitis bulb and second portion-biopsy gastritis antum-biopsy irregular z line-biopsy 2. Retroflexed views revealed a hiatal hernia RECOMMENDATIONS: 1. Await biopsy results. Biopsy results will not be ready for 7-10 days. If you don't hear from us in two weeks, call our office for biopsy results. 2. Anti-reflux regimen 3. Continue PPI 4. Colonoscopy in am clear liquid diet consider liver biopsy if serology negative PATIENT CONDITION: stable DISPOSITION: Inpatient REPEAT EXAM: Return 1 year EGD Tiffany Marmolejo MD eSigned: Tiffany Marmolejo MD 08/03/2017 7:24 AM cc: PATIENT NAME: Lis juarez Elvira MR#: [id number]
[2017-08-03] MEDS: CHOLESTYRAMINE 4 GM PACKET PO SCH (09:27)
[2017-08-03] MEDS: POTASSIUM CHLORIDE 25 MEQ EFFERVESCENT TAB NG SCH (09:28)
[2017-08-03] MEDS: ONDANSETRON HCL 4 MG/2 ML VIAL IV PUSH PRN ×2 (09:28→17:54)
[2017-08-03] MEDS: PANTOPRAZOLE SOD 40 MG DELAYED RELEASE TAB PO SCH (09:28)
[2017-08-03] MEDS: CIPROFLOXACIN 400 MG PREMIX 200 ML IV SCH ×2 (09:29→21:59)
[2017-08-03] MEDS: 1/2 NS + KCL 20 MEQ INJ 1,000 ML IV SCH ×2 (09:30→20:03)
[2017-08-03] MEDS: OCTREOTIDE INJ 500 MCG in SODIUM CHLORID 0.9% 500 ML INJ 499.5 ML IV SCH ×2 (09:30→13:39)
--- NOTE | 2017-08-03 09:49 | HHI.PR ---
Subjective Remarks Follow-up intractable abdominal pain. Patient seen and examined, nurse at bedside. Denies any acute events overnight. Did undergo EGD with duodenitis and gastritis found. Patient is tolerating p.o. intake of clear liquids well with no nausea or vomiting. Does complain of continued pain with current regimen controlling pain well. No signs of any alcohol withdrawal. GI to see patient this morning, plan for colonoscopy in the a.m. Objective Vitals Vital Signs Date Time Temp Pulse Resp B/P (MAP) Pulse Ox O2 Delivery O2 Flow Rate FiO2 08/03/17 08:00 93 16 92/62 (72) 99 08/03/17 07:45 93 16 90/63 (72) 100 08/03/17 07:30 99.2 93 16 94/62 (73) 98 08/03/17 07:02 98.8 96 20 95/62 (73) 93 08/03/17 00:00 98.8 93 20 91/50 (64) 95 08/02/17 21:00 98.1 97 18 90/63 97 08/02/17 20:00 99.0 69 20 92/65 (74) 97 08/02/17 17:44 99.2 96 20 87/54 97 08/02/17 11:50 99.0 102 20 90/54 (66) 94 I/O 08/02/17 08/02/17 08/02/17 08/03/17 08/03/17 08/03/17 07:00 15:00 23:00 07:00 15:00 23:00 Intake Total 420 ml 872 ml 2535 ml 120 ml Balance 420 ml 872 ml 2535 ml 120 ml Intake Oral 420 ml 30 ml 120 ml IV Total 400 ml 2120 ml Packed Cells 400 ml 400 ml Blood Product IV Normal Saline Flush 42 ml 15 ml # Voids 2 0 2 # Bowel Movements 0 0 0 Result Diagram: 08/03/17 0516 08/03/17 0516 Imaging Last Impressions Hepatobiliary Scan Nuclear Medicine 08/02/17 0000 Signed Impressions: Service Date/Time: Wednesday, August 02, 2017 13:49 - CONCLUSION: 1. Extremely poor hepatocyte function with persistent blood pool activity and no significant excretion from the parenchyma during 96 minutes of continuous observation. 2. Due to the hepatocellular dysfunction, evaluation of the gallbladder cannot be performed. Den Juarez MD ADDENDUM: COMPARISON: MRCP W/O CONTRAST, August 01, 2017, 19:59. The patient returned for 18 hour delayed images. Much of the activity is still within the liver consistent with poor hepatic function. There does appear to be some activity seen in the gallbladder. Zaheer Oates MD Gall Bladder Ultrasound 08/01/17 0000 Signed Impressions: Service Date/Time: Tuesday, August 01, 2017 17:01 - CONCLUSION: 1. Hepatomegaly with diffusely echogenic hepatic parenchyma. Diminished hepatofugal flow in the portal vein. Overall findings may reflect subacute hepatitis versus profound hepatic steatosis versus medical liver disease. 2. Moderately distended gallbladder and common bile duct. Findings are concerning for acute distal CBD obstruction. Consider MRCP or ERCP examination for further evaluation. 3. Gallbladder sludge with mild diffuse gallbladder wall prominence. These findings are routinely seen in patients with chronic liver disease and significantly limit overall sonographic sensitivity for acute cholecystitis. Thompson Mcguire MD Cholangiopancreatography MRI 08/01/17 0000 Signed Impressions: Service Date/Time: Tuesday, August 01, 2017 19:59 - CONCLUSION: 1. Common bile duct is normal in caliber without focal intraductal abnormality. 2. Moderate gallbladder distention with trace pericholecystic fluid. This does raise the possibility for acute cholecystitis in the appropriate clinical setting. Consider HIDA scan to document cystic duct patency if there is persistent significant clinical concern. 3. Diffuse hepatomegaly similar to ultrasound exam. Again, differential considerations include profound hepatic steatosis versus medical liver disease versus subacute hepatitis given findings of diminished hepatopedal flow on ultrasound. Thompson Mcguire MD Objective Remarks GENERAL: Well-developed, well-nourished patient in NAD. SKIN: Warm and dry. No rash. Jaundiced. HEAD: Normocephalic. Atraumatic. EYES: Pupils equal and round. No scleral icterus. No injection or drainage. ENT: No nasal bleeding or discharge. Mucous membranes pink and moist. NECK: Supple. Trachea midline. CARDIOVASCULAR: Regular rate and rhythm. S1, S2 noted. No murmur appreciated. RESPIRATORY: No accessory muscle use. Clear to auscultation. Breath sounds equal bilaterally. GASTROINTESTINAL: Abdomen soft, nondistended. Normoactive bowel sounds x4. Mildly diffuse abdominal pain to right upper and left upper quadrants. MUSCULOSKELETAL: No obvious deformities. Extremities without clubbing, cyanosis , or edema. NEUROLOGICAL: Awake and alert. No obvious cranial nerve deficits. Motor grossly within normal limits. 5/5 muscle strength in bilateral upper and lower extremities. Normal speech. PSYCHIATRIC: Appropriate mood and affect; insight and judgment normal. A/P Assessment and Plan 32-year-old female being admitted for intractable abdominal pain Intractable abdominal pain suspect secondary to duodenitis, gastritis Anemia suspect secondary to acute blood loss - Likely multifactorial with possible cholecystitis/acute cholangitis along with 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 with acute hepatitis flare as well as possible peptic ulcers given history of hematemesis and melena - MRCP which was ordered is unremarkable for any intraductal obstruction - HIDA scan reviewed showing extremely poor hepatocellular function persistent blood pool activity. - Avoid Tylenol, pain control with morphine IV and oxycodone - Continue Cipro and Flagyl IV antibiotics. - Octreotide started given history of heavy alcohol use. Continue Protonix drip. - Hemoglobin 6.4/hematocrit 19.6 patient is status post 2 units PRBC. CBC stable today with hemoglobin 8.7. Continue to monitor. Monitor for any bleeding. - GI is following, plan for colonoscopy in a.m. [place] screen pending. Hepatitis panel negative. 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 Follow BMP. ETOH use Transaminitis suspect secondary to above Coagulopathy likely secondary to end-stage liver disease. - CIWA protocol. Given folic acid and thiamine. Monitor for any withdrawals. Seizure precautions. - INR 1.5, avoid blood thinners/anticoagulation DVT prophylaxis: SCDs. Will hold chemical prophylaxis for now for GI bleed. Katia Be August 03, 2017 09:49
[2017-08-03 10:58] LABS: % SATURATION IRON PROFILE 94.4 % (20-50); TOTAL IRON BINDING CAPACITY 165 MCG/DL (250-450)
[2017-08-03 11:04] LABS: IRON (FE) 156 MCG/DL (50-170)
[2017-08-03 11:14] LABS: FERRITIN 1597 NG/ML (8-252); FOLATE 1.4 NG/ML (3.1-17.5)
[2017-08-03] MEDS: POTASSIUM CHLOR 20 MEQ PREMIX 100 ML IV SCH ×2 (11:59→13:33)
[2017-08-03 12:34] VITALS: BP 98/56; PULSE 93; RESP 14; TEMP 98.2; O2SAT 93
[2017-08-03] MEDS: THIAMINE INJ 100 MG in SODIUM CHLORIDE 0.9% INJ 100 ML IV SCH (13:35)
[2017-08-03] MEDS ORDERED: MAGNESIUM CITRATE SOLN 300 ML BTL PO ONE ×2 (16:00→20:00)
[2017-08-03 17:21] VITALS: BP 91/52; PULSE 97; RESP 14; TEMP 99; O2SAT 97
[2017-08-03 20:00] VITALS: BP 116/54; PULSE 98; RESP 18; TEMP 98.9; O2SAT 96
[2017-08-03] MEDS: SODIUM CHLORIDE 0.9% FLUSH 10 ML FLUSH IV FLUSH PRN ×2 (20:05→22:33)
[2017-08-03] MEDS: LORazepam 2 MG/ML VIAL IV PUSH PRN (22:31)
[2017-08-04] VITALS: BP 100/62; PULSE 100; RESP 18; TEMP 99.4; O2SAT 93
[2017-08-04] MEDS: metroNIDAZOLE 500 MG INJ 100 ML IV SCH ×3 (04:31→20:18)
[2017-08-04] MEDS: MORPHINE SULFATE 4 MG/ML INJ IV PUSH PRN ×5 (04:32→21:47)
[2017-08-04] MEDS: SODIUM CHLORIDE 0.9% FLUSH 10 ML FLUSH IV FLUSH PRN (04:32)
[2017-08-04 05:14] LABS: HEMOGLOBIN 8.1 GM/DL (11.6-15.3); MEAN CORPUSCULAR HEMOGLOBIN 35.3 PG (27.0-34.0); MEAN CORPUSCULAR HGB CONC 33.7 % (32.0-36.0); MEAN PLATELET VOLUME 8.3 FL (7.0-11.0); PLATELET COUNT 129 TH/MM3 (150-450); RED BLOOD COUNT 2.28 MIL/MM3 (4.00-5.30); RED CELL DISTRIBUTION WIDTH 25.4 % (11.6-17.2); WHITE BLOOD COUNT 10.7 TH/MM3 (4.0-11.0)
[2017-08-04 05:33] LABS: BANDS 1 % (0-6); LYMPHOCYTES 13 % (9-44); MONOCYTES 6 % (0-8); NEUTROPHIL # MANUAL DIFF 8.7 TH/MM3 (1.8-7.7); POLYS (SEG NEUTROPHILS) 80 % (16-70); TEARDROP RBCS 1+ (NORMAL)
[2017-08-04 05:35] LABS: ALBUMIN 2.1 GM/DL (3.4-5.0); BICARBONATE 25.6 MEQ/L (21.0-32.0); CALCIUM-PROTEIN CORRECTED 7.8 MG/DL (8.5-10.1); CREATININE 0.5 MG/DL (0.50-1.00); TOTAL BILIRUBIN ADULT 16.5 MG/DL (0.2-1.0); TOTAL PROTEIN 5.6 GM/DL (6.4-8.2)
[2017-08-04] MEDS: PANTOPRAZOLE INJ 80 MG in SODIUM CHLORIDE 0.9% INJ 100 ML IV SCH ×3 (06:22→17:46)
[2017-08-04 07:30] VITALS: BP 98/63; PULSE 106; RESP 20; TEMP 97.2; O2SAT 96
[2017-08-04] MEDS: 1/2 NS + KCL 20 MEQ INJ 1,000 ML IV SCH ×2 (08:20→16:36)
[2017-08-04] MEDS: POTASSIUM CHLORIDE 25 MEQ EFFERVESCENT TAB NG SCH (08:20)
[2017-08-04] MEDS: ONDANSETRON HCL 4 MG/2 ML VIAL IV PUSH PRN (08:20)
[2017-08-04] MEDS: CIPROFLOXACIN 400 MG PREMIX 200 ML IV SCH ×2 (08:20→20:18)
[2017-08-04] MEDS: FOLIC ACID 1 MG TAB PO SCH (08:21)
[2017-08-04] MEDS: CHOLESTYRAMINE 4 GM PACKET PO SCH (08:22)
--- NOTE | 2017-08-04 08:37 | HHI.PR ---
Subjective Remarks Follow-up intractable abdominal pain. Patient seen and examined, mother at bedside. Patient denies any new acute events overnight, does complain of continued abdominal pain and distention. Plan for colonoscopy today, tolerated prep last night. Vitals are stable. Afebrile. Objective Vitals Vital Signs Date Time Temp Pulse Resp B/P (MAP) Pulse Ox O2 Delivery O2 Flow Rate FiO2 08/04/17 07:30 97.2 106 20 98/63 (75) 96 08/04/17 05:32 18 08/04/17 00:00 99.4 100 18 100/62 (75) 93 08/03/17 23:32 18 08/03/17 20:00 98.9 98 18 116/54 (74) 96 08/03/17 17:21 99.0 97 14 91/52 (65) 97 08/03/17 12:34 98.2 93 14 98/56 (70) 93 I/O 08/03/17 08/03/17 08/03/17 08/04/17 08/04/17 08/04/17 07:00 15:00 23:00 07:00 15:00 23:00 Intake Total 2535 ml 1063 ml 2500 ml 100 ml Balance 2535 ml 1063 ml 2500 ml 100 ml Intake Oral 120 ml 1400 ml IV Total 2120 ml 943 ml 1100 ml 100 ml Packed Cells 400 ml Blood Product IV Normal Saline Flush 15 ml # Voids 2 4 # Bowel Movements 0 Result Diagram: 08/04/17 0453 08/04/17 0453 Imaging Last Impressions Hepatobiliary Scan Nuclear Medicine 08/02/17 0000 Signed Impressions: Service Date/Time: Wednesday, August 02, 2017 13:49 - CONCLUSION: 1. Extremely poor hepatocyte function with persistent blood pool activity and no significant excretion from the parenchyma during 96 minutes of continuous observation. 2. Due to the hepatocellular dysfunction, evaluation of the gallbladder cannot be performed. Den Juarez MD ADDENDUM: COMPARISON: MRCP W/O CONTRAST, August 01, 2017, 19:59. The patient returned for 18 hour delayed images. Much of the activity is still within the liver consistent with poor hepatic function. There does appear to be some activity seen in the gallbladder. Zaheer Oates MD Gall Bladder Ultrasound 08/01/17 0000 Signed Impressions: Service Date/Time: Tuesday, August 01, 2017 17:01 - CONCLUSION: 1. Hepatomegaly with diffusely echogenic hepatic parenchyma. Diminished hepatofugal flow in the portal vein. Overall findings may reflect subacute hepatitis versus profound hepatic steatosis versus medical liver disease. 2. Moderately distended gallbladder and common bile duct. Findings are concerning for acute distal CBD obstruction. Consider MRCP or ERCP examination for further evaluation. 3. Gallbladder sludge with mild diffuse gallbladder wall prominence. These findings are routinely seen in patients with chronic liver disease and significantly limit overall sonographic sensitivity for acute cholecystitis. Thompson Mcguire MD Cholangiopancreatography MRI 08/01/17 0000 Signed Impressions: Service Date/Time: Tuesday, August 01, 2017 19:59 - CONCLUSION: 1. Common bile duct is normal in caliber without focal intraductal abnormality. 2. Moderate gallbladder distention with trace pericholecystic fluid. This does raise the possibility for acute cholecystitis in the appropriate clinical setting. Consider HIDA scan to document cystic duct patency if there is persistent significant clinical concern. 3. Diffuse hepatomegaly similar to ultrasound exam. Again, differential considerations include profound hepatic steatosis versus medical liver disease versus subacute hepatitis given findings of diminished hepatopedal flow on ultrasound. Thompson Mcguire MD Objective Remarks GENERAL: Well-developed, well-nourished patient in [place]. SKIN: Warm and dry. No rash. Jaundiced. HEAD: Normocephalic. Atraumatic. EYES: Pupils equal and round. No scleral icterus. No injection or drainage. ENT: No nasal bleeding or discharge. Mucous membranes pink and moist. NECK: Supple. Trachea midline. CARDIOVASCULAR: Regular rate and rhythm. S1, S2 noted. No murmur appreciated. RESPIRATORY: No accessory muscle use. Clear to auscultation. Breath sounds equal bilaterally. GASTROINTESTINAL: Abdomen soft, nondistended. Normoactive bowel sounds x4. Mildly diffuse abdominal pain to right upper and left upper quadrants. MUSCULOSKELETAL: No obvious deformities. Extremities without clubbing, cyanosis , or edema. NEUROLOGICAL: Awake and alert. No obvious cranial nerve deficits. Motor grossly within normal limits. 5/5 muscle strength in bilateral upper and lower extremities. Normal speech. PSYCHIATRIC: Appropriate mood and affect; insight and judgment normal. A/P Assessment and Plan 32-year-old female being admitted for intractable abdominal pain Intractable abdominal pain suspect secondary to duodenitis, gastritis Anemia suspect secondary to acute blood loss - Likely multifactorial with possible cholecystitis/acute cholangitis along with 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 with acute hepatitis flare as well as possible peptic ulcers given history of hematemesis and melena - MRCP which was ordered is unremarkable for any intraductal obstruction - HIDA scan reviewed showing extremely poor hepatocellular function persistent blood pool activity. - Avoid Tylenol, pain control with morphine IV and oxycodone - Continue Cipro and Flagyl IV antibiotics. - Octreotide started given history of heavy alcohol use. Continue Protonix drip. - Hemoglobin 6.4/hematocrit 19.6 patient is status post 2 units PRBC. CBC stable today. Continue to monitor. Monitor for any bleeding. - GI is following, plan for colonoscopy today. ANTONINO screen pending. Hepatitis panel negative. Hypokalemia. Resolved. 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 - Monitor cardiac telemetry. Follow BMP. ETOH use Transaminitis suspect secondary to above Coagulopathy likely secondary to end-stage liver disease. - CIWA protocol. Given folic acid and thiamine. Monitor for any withdrawals. Seizure precautions. - INR 1.5, avoid blood thinners/anticoagulation - Total bilirubin worsening. - GI following. DVT prophylaxis: SCDs. Will hold chemical prophylaxis for now for GI bleed. Katia Be August 04, 2017 08:37
--- NOTE | 2017-08-04 08:59 | MB ---
cc: Tiffany Marmolejo MD, Hammad M MD DATE: 08/03/2017 REQUESTING PHYSICIAN: MD Asim REASON FOR CONSULTATION: Anemia, elevated liver function tests and abdominal pain. HISTORY OF PRESENT ILLNESS: Ms. Hays is a 32-year-old lady who came to the emergency room with complaints of intractable abdominal pain, nausea and vomiting. Apparently, she was in her usual state of health until last December when she started to experience abdominal pain, mostly in the epigastrium, right upper quadrant the last 2-3 weeks at a time. She was taking Aleve 2-3 pills during the pain cycle, then the pain disappeared so she would stop taking it. For the last couple of weeks, the pain became constant and worse, radiating to the entire abdomen. Also, she reported having some bright red blood per rectum along with black tarry stool. She did not take any Aleve or any type of NSAIDs in the last few weeks. She also developed nausea and vomiting, unable to keep anything down. She noted that she became more jaundiced recently. For this reason, she came to the emergency room for further evaluation and treatment. In the emergency room, she was noted to be jaundiced and severely anemic. The patient had endoscopies and no colonoscopy in the past and she was noted to have increased lymphocytes in the duodenum suggestive of possible celiac disease. Her serology was suggestive of a slight elevation in antitissue transglutaminase antibody. She was recommended to give a trial of gluten free. Apparently, she is not doing that for many, many years. In addition, she drinks heavily, 8-9 shots a day for 3-4 days a week. This was going on for the last year or two. She has a history of marijuana use, but she stopped 8-9 months ago. PAST MEDICAL HISTORY: 1. Pituitary adenoma, not on medication at this time. 2. Obesity. 3. She also has sensitivity to gluten. 4. spine. PAST SURGICAL HISTORY: Tonsillectomy. MEDICATIONS AT HOME: None. MEDICATIONS: In the hospital she was placed on: 1. Questran. 2. Ciprofloxacin. 3. Folic acid. 4. Metronidazole. 5. Morphine. 6. Octreotide. 7. Protonix. 8. Thiamine. REVIEW OF SYSTEMS: CONSTITUTIONAL: She denies any fever, chills, weight loss or weight gain. ENT: No alteration of baseline hearing or visual acuity. PULMONARY: Denies any chest pain, shortness of breath. GASTROINTESTINAL: As above. GENITOURINARY: Denies dysuria or hematuria. HEMATOLOGICAL: Denies any history of anemia or bleeding disorder. SKIN: No alteration of baseline skin lesion. NEUROLOGIC: No history of TIA or CVA kind of symptoms. PHYSICAL EXAMINATION: GENERAL: On clinical exam she is sitting in bed in no acute distress, obese, jaundiced. VITAL SIGNS: Blood pressure is 91/50, respirations 20, pulse 93, temperature 98.8, pulse oximetry 95. HEENT: PERRLA, jaundiced. NECK: No JVD. No lymphadenopathy. CHEST: Clear to auscultation and palpation. CARDIOVASCULAR: S1, S2. No murmur. ABDOMEN: Soft, obese. Hepatomegaly. CENTRAL NERVOUS SYSTEM: Awake, alert, oriented x3. No focal signs identified. LABORATORY DATA: Labs were quite abnormal upon admission. Her hemoglobin was 7.8, dropped to 6.4, currently 8.4. White count was 13.9, now 10.4. MCV 114, platelets 193. Her chemistry was suggestive of potassium of 3.1 upon admission, currently 3.1. Her bilirubin 11.7, currently at 15.7. AST 180. Alkaline phosphatase 182, albumin 2.2. Folate 1.4. Immunology pending. Serology pending except hepatitis profile was sent and was negative. IMAGING STUDIES: The patient had a HIDA scan which showed extremely poor hepatocyte function with persistent blood pool activity and no significant excretion from the parenchyma but 96 minutes. Patient returned in 18 hours for delayed imaged. Much of the activity is still in the liver consistent with poor hepatic function. There does appear to be some activity in the gallbladder. She had ultrasound of the gallbladder, which showed hepatomegaly, diminished hepatofugal flow in the portal vein. Overall findings suggest subacute hepatitis, moderately distended gallbladder and common bile duct. MRCP was done also to rule out any common bile duct obstruction. That was noted to be normal without focal intraductal abnormalities. Gallbladder distention with trace pericholecystic fluid. HIDA scan as above. IMPRESSION: Ms. Hays is a 32-year-old lady admitted to the hospital with anemia, elevated liver enzymes, abdominal pain, most likely findings consistent with alcoholic liver disease. Extensive studies so far did not indicate cholecystitis or common bile duct obstruction anemia. No indication of active bleed at this time. Multifactorial, possible gluten sensitivity, gastrointestinal bleed, malabsorption. RECOMMENDATION: EGD is scheduled today. Colonoscopy in the morning. If EGD is negative, consider liver biopsy if LFTs not improved. Avoid alcohol use. Sent liver workup including ANTONINO, antismooth muscle antibody, mitochondrial antibody, ceruloplasmin, celiac panel, alpha-1 antitrypsin, ferritin, iron. Further recommendation will depend on the patient's clinical status and the above results. I would like to thank Dr. Dailey for referring her to our office for consultation. Thank you again. We will continue to follow the patient along with you. MD ASHLEY OrlandoB/SB , 04:54 PM , 05:32 PM
[2017-08-04 11:33] VITALS: BP 94/66; PULSE 93; RESP 20; TEMP 97.9; O2SAT 94
[2017-08-04] MEDS ORDERED: SODIUM CHLORID 0.9% 500 ML IV PRN (12:00)
[2017-08-04] MEDS ORDERED: LACTATED RINGER'S 1000 ML IV PRN (12:00)
[2017-08-04] MEDS ORDERED: POVIDONE IODINE 5% (ANTISEPSIS KIT) 4 APPLICATIONS EACH NARE PRN (12:00)
[2017-08-04] MEDS ORDERED: CHLORHEXIDINE GLUCONATE 2 % 1 PACK (2 CLOTHS) TOPICAL PRN (12:00)
[2017-08-04] MEDS ORDERED: METOPROLOL TARTRATE 25 MG TAB PO PRN (12:00)
--- NOTE | 2017-08-04 12:34 | GIPROC ---
[facility] [address] [place] [address], [id number] COLONOSCOPY PROCEDURE REPORT EXAM DATE: 08/04/2017 PATIENT NAME: Elvira Valladares MR #: [id number] BIRTHDATE: 1985 ENDOSCOPIST: Tiffany Marmolejo MD ORDER #: [id number] AUTISTIC TEACHER: Scott Montenegro STATUS: inpatient INDICATIONS: The patient is a 32 yr old female here for a colonoscopy due to anemia, gi bleeding PROCEDURE PERFORMED: Colonoscopy with ablation MEDICATIONS: None and Per Anesthesia. PREP QUALITY: fair PREP TYPE:Other: ESTIMATED BLOOD LOSS: None CONSENT: The patient understands the risks and benefits of the procedure and understands that these risks include, but are not limited to: sedation, allergic reaction, infection, perforation and/or bleeding. Alternative means of evaluation and treatment include, among others: physical exam, x-rays, and/or surgical intervention. The patient elects to proceed with this endoscopic procedure. medical equipment was checked for proper function. Hand hygiene and appropriate measures for infection prevention was taken. After the risks, benefits and alternatives of the procedure were thoroughly explained, Informed consent was verified, confirmed and timeout was successfully executed by the treatment team. A digital exam revealed external hemorrhoids The Pentax [id number] endoscope was introduced through the anus and advanced to the cecum, which was identified by both the appendix and ileocecal valve. The instrument was then slowly withdrawn as the colon was fully examined. COLON FINDINGS: Diverticulosis sigmoid,descending avm in midtransverse -s/p tretment using balltip two small AVM's in rectum-s/p ablation using balltip. Retroflexed views revealed internal hemorrhoids and Retroflexed views revealed medium internal hemorrhoids The scope was then completely withdrawn from the patient and the procedure terminated. PROCEDURE WITHDRAWAL TIME:6minutes ADVERSE EVENTS: There were no complications. IMPRESSIONS: 1. Diverticulosis sigmoid,descending avm in midtransverse -s/p tretment using balltip two small AVM's in rectum-s/p ablation using balltip 2. Retroflexed views revealed internal hemorrhoids 3. Retroflexed views revealed medium internal hemorrhoids 4. Revealed external hemorrhoids RECOMMENDATIONS: 1. Benefiber 2 tsp daily 2. Probiotics from any C or health food store 3. Proctozone cream RECALL: Return 5 years Colonoscopy Tiffany Marmolejo MD eSigned: Tiffany Marmolejo MD 08/04/2017 12:34 PM cc:
[2017-08-04] MEDS ORDERED: prednisoLONE 10 MG ODT TAB PO ONE (12:45)
[2017-08-04 13:27] VITALS: BP 96/63; PULSE 94; RESP 18; TEMP 97.1; O2SAT 94
[2017-08-04] MEDS: PENTOXIFYLLINE 400 MG CONTROLLED RELEASE TAB PO SCH ×2 (13:31→21:46)
[2017-08-04] MEDS: OCTREOTIDE INJ 500 MCG in SODIUM CHLORID 0.9% 500 ML INJ 499.5 ML IV SCH (14:01)
[2017-08-04] MEDS: THIAMINE INJ 100 MG in SODIUM CHLORIDE 0.9% INJ 100 ML IV SCH (14:41)
[2017-08-04 15:37] VITALS: BP 91/64; PULSE 95; RESP 20; TEMP 97.3; O2SAT 99
[2017-08-04 20:00] VITALS: BP 97/60; PULSE 94; RESP 20; TEMP 97.8; O2SAT 94
[2017-08-04 20:42] LABS: ALPHA-1-ANTITRYPSIN 216 mg/dL (100 - 190)
[2017-08-04] MEDS: diphenhydrAMINE HCL 50 MG CAP PO PRN (21:09)
[2017-08-05] VITALS: BP 95/61; PULSE 92; RESP 18; TEMP 99.5; O2SAT 91
[2017-08-05] MEDS: MORPHINE SULFATE 4 MG/ML INJ IV PUSH PRN ×4 (01:45→21:05)
[2017-08-05] MEDS: SODIUM CHLORIDE 0.9% FLUSH 10 ML FLUSH IV FLUSH PRN (01:45)
[2017-08-05] MEDS: metroNIDAZOLE 500 MG INJ 100 ML IV SCH ×3 (03:53→21:01)
[2017-08-05] MEDS: PANTOPRAZOLE INJ 80 MG in SODIUM CHLORIDE 0.9% INJ 100 ML IV SCH ×2 (03:53→14:17)
[2017-08-05] MEDS: PENTOXIFYLLINE 400 MG CONTROLLED RELEASE TAB PO SCH ×3 (06:40→23:06)
--- NOTE | 2017-08-05 07:29 | HHI.GIFU ---
GI Follow-up Note Consult Follow-up Subjective: Patient laying in bed comfortably, no new complaints except sob tail dogger, resolved for now. No diarrhea, nausea, vomiting.Tolerated diet well.Had edgd/colonoscopy -findings discussed .Awaiting liver work-up. Objective: PHYSICAL EXAMINATION: Vitals signs stable No fever Vital Signs Date Time Temp Pulse Resp B/P (MAP) Pulse Ox O2 Delivery O2 Flow Rate FiO2 08/05/17 16:00 96.7 85 16 87/54 (65) 97 08/05/17 14:16 16 08/05/17 14:00 97.8 87 16 94/55 (68) 95 08/05/17 13:44 16 HEENT: Pupils round and reactive to light; normocephalic; atraumatic; jaundice. Throat is clear. NECK: Neck is supple, no JVD, no lymphadenopathy. CHEST: Chest is clear to auscultation and percussion. CARDIAC: Regular rate and rhythm with no murmur gallop or rubs. ABDOMEN: Soft, distended, nontender; hepatosplenomegaly; bowel sounds are present in all four quadrants. EXTREMITIES: No clubbing, cyanosis, or edema. SKIN: Normal; no rash; jaundice. AREA COORDINATOR: No focal deficits; alert and oriented times three. Available Data (labs, X- Rays, Procedues) : Laboratory Tests Test 08/04/17 04:53 08/05/17 07:00 White Blood Count 10.7 TH/MM3 12.4 TH/MM3 Red Blood Count 2.28 MIL/MM3 2.19 MIL/MM3 Hemoglobin 8.1 GM/DL 7.9 GM/DL Hematocrit 24.0 % 23.2 % Mean Corpuscular Volume 105.0 FL 106.1 FL Mean Corpuscular Hemoglobin 35.3 PG 36.2 PG Mean Corpuscular Hemoglobin Concent 33.7 % 34.1 % Red Cell Distribution Width 25.4 % 25.5 % Platelet Count 129 TH/MM3 137 TH/MM3 Mean Platelet Volume 8.3 FL 8.8 FL CBC Comment AUTO DIFF AUTO DIFF Differential Total Cells Counted 100 100 Neutrophils % (Manual) 80 % 85 % Band Neutrophils % 1 % 1 % Lymphocytes % 13 % 8 % Monocytes % 6 % 6 % Neutrophils # (Manual) 8.7 TH/MM3 10.7 TH/MM3 Differential Comment FINAL DIFF MANUAL FINAL DIFF MANUAL Platelet Estimate LOW LOW Platelet Morphology Comment NORMAL NORMAL Tear Drop Cells 1+ Blood Urea Nitrogen 9 MG/DL 9 MG/DL Creatinine 0.50 MG/DL 0.52 MG/DL Random Glucose 83 MG/DL 119 MG/DL Total Protein 5.6 GM/DL 5.8 GM/DL Albumin 2.1 GM/DL 2.0 GM/DL Calcium Level 7.0 MG/DL 7.1 MG/DL Magnesium Level 2.0 MG/DL Alkaline Phosphatase 140 U/L 142 U/L Aspartate Amino Transf (AST/SGOT) 209 U/L 166 U/L Alanine Aminotransferase (ALT/SGPT) 32 U/L 32 U/L Total Bilirubin 16.5 MG/DL 17.1 MG/DL Sodium Level 135 MEQ/L 135 MEQ/L Potassium Level 3.5 MEQ/L 3.9 MEQ/L Chloride Level 99 MEQ/L 100 MEQ/L Carbon Dioxide Level 25.6 MEQ/L 26.7 MEQ/L Anion Gap 10 MEQ/L 8 MEQ/L Estimat Glomerular Filtration Rate 141 ML/MIN 135 ML/MIN Protein Corrected Calcium 7.8 MG/DL 7.8 MG/DL ASSESSMENT/PLAN: anemia-multifactorial -questionable celiac disease-await labs and biopsy elevated lfts secondary etoh use hepatosplenomegaly secondary etoh liver disease rectal bleeding secondary hemorrhoids -resolved nausea, vomiting, abdominal pain-improved most likely secondary etoh hepatitis Recommendations continue current regimen avoid etoh and hepatotoxics, consider rehab on dc fu biopsy fu labs consider liver biopsy based on liver work-up results and clinical picture It was a pleasure seeing Elvira Camacho. Thank you for this consult. Entered by: Tiffany Eng MD August 05, 2017 07:29
[2017-08-05 07:42] LABS: HEMATOCRIT 23.2 % (35.0-46.0); HEMOGLOBIN 7.9 GM/DL (11.6-15.3); MEAN CELL VOLUME 106.1 FL (80.0-100.0); MEAN CORPUSCULAR HEMOGLOBIN 36.2 PG (27.0-34.0); MEAN CORPUSCULAR HGB CONC 34.1 % (32.0-36.0); MEAN PLATELET VOLUME 8.8 FL (7.0-11.0); PLATELET COUNT 137 TH/MM3 (150-450); RED BLOOD COUNT 2.19 MIL/MM3 (4.00-5.30); RED CELL DISTRIBUTION WIDTH 25.5 % (11.6-17.2); WHITE BLOOD COUNT 12.4 TH/MM3 (4.0-11.0)
[2017-08-05 08:00] VITALS: BP 96/56; PULSE 91; RESP 18; TEMP 97; O2SAT 95
[2017-08-05 08:14] LABS: BICARBONATE 26.7 MEQ/L (21.0-32.0); CALCIUM 7.1 MG/DL (8.5-10.1); CALCIUM-PROTEIN CORRECTED 7.8 MG/DL (8.5-10.1); CREATININE 0.52 MG/DL (0.50-1.00); TOTAL BILIRUBIN ADULT 17.1 MG/DL (0.2-1.0); TOTAL PROTEIN 5.8 GM/DL (6.4-8.2)
[2017-08-05] MEDS: CIPROFLOXACIN 400 MG PREMIX 200 ML IV SCH ×2 (08:15→21:02)
[2017-08-05] MEDS: 1/2 NS + KCL 20 MEQ INJ 1,000 ML IV SCH (08:16)
[2017-08-05] MEDS: FOLIC ACID 1 MG TAB PO SCH (08:16)
[2017-08-05] MEDS: POTASSIUM CHLORIDE 25 MEQ EFFERVESCENT TAB NG SCH (08:16)
--- NOTE | 2017-08-05 08:54 | HHI.PR ---
Subjective Remarks Follow-up intractable abdominal pain. Patient seen and examined, lying in bed father at bedside. Patient eating well with no abdominal pain, nausea or vomiting at the time. Pain medication working. Afebrile overnight. Positive bowel movement, mild blood in stool this morning. Gastroenterology following, possible liver biopsy within the next couple days. Objective Vitals Vital Signs Date Time Temp Pulse Resp B/P (MAP) Pulse Ox O2 Delivery O2 Flow Rate FiO2 08/05/17 08:00 97.0 91 18 96/56 (69) 95 08/05/17 00:00 99.5 92 18 95/61 (72) 91 08/04/17 20:00 97.8 94 20 97/60 (72) 94 08/04/17 15:37 97.3 95 20 91/64 (73) 99 08/04/17 13:27 97.1 94 18 96/63 (74) 94 08/04/17 12:53 93 16 96/67 (77) 95 08/04/17 12:38 98.3 95 16 92/62 (72) 98 08/04/17 11:33 97.9 93 20 94/66 (75) 94 I/O 08/04/17 08/04/17 08/04/17 08/05/17 08/05/17 08/05/17 07:00 15:00 23:00 07:00 15:00 23:00 Intake Total 100 ml 1100 ml 1711 ml 1491 ml Balance 100 ml 1100 ml 1711 ml 1491 ml Intake Oral 240 ml IV Total 100 ml 1100 ml 1711 ml 1251 ml # Voids 2 # Bowel Movements 0 Result Diagram: 08/05/17 0700 08/05/17 0700 Imaging Last Impressions Hepatobiliary Scan Nuclear Medicine 08/02/17 0000 Signed Impressions: Service Date/Time: Wednesday, August 02, 2017 13:49 - CONCLUSION: 1. Extremely poor hepatocyte function with persistent blood pool activity and no significant excretion from the parenchyma during 96 minutes of continuous observation. 2. Due to the hepatocellular dysfunction, evaluation of the gallbladder cannot be performed. Den Juarez MD ADDENDUM: COMPARISON: MRCP W/O CONTRAST, August 01, 2017, 19:59. The patient returned for 18 hour delayed images. Much of the activity is still within the liver consistent with poor hepatic function. There does appear to be some activity seen in the gallbladder. Zaheer Oates MD Gall Bladder Ultrasound 08/01/17 0000 Signed Impressions: Service Date/Time: Tuesday, August 01, 2017 17:01 - CONCLUSION: 1. Hepatomegaly with diffusely echogenic hepatic parenchyma. Diminished hepatofugal flow in the portal vein. Overall findings may reflect subacute hepatitis versus profound hepatic steatosis versus medical liver disease. 2. Moderately distended gallbladder and common bile duct. Findings are concerning for acute distal CBD obstruction. Consider MRCP or ERCP examination for further evaluation. 3. Gallbladder sludge with mild diffuse gallbladder wall prominence. These findings are routinely seen in patients with chronic liver disease and significantly limit overall sonographic sensitivity for acute cholecystitis. Thompson Mcguire MD Cholangiopancreatography MRI 08/01/17 0000 Signed Impressions: Service Date/Time: Tuesday, August 01, 2017 19:59 - CONCLUSION: 1. Common bile duct is normal in caliber without focal intraductal abnormality. 2. Moderate gallbladder distention with trace pericholecystic fluid. This does raise the possibility for acute cholecystitis in the appropriate clinical setting. Consider HIDA scan to document cystic duct patency if there is persistent significant clinical concern. 3. Diffuse hepatomegaly similar to ultrasound exam. Again, differential considerations include profound hepatic steatosis versus medical liver disease versus subacute hepatitis given findings of diminished hepatopedal flow on ultrasound. Thompson Mcguire MD Objective Remarks GENERAL: Well-developed, well-nourished patient in [facility]. SKIN: Warm and dry. No rash. Jaundiced. HEAD: Normocephalic. Atraumatic. EYES: Pupils equal and round. No scleral icterus. No injection or drainage. ENT: No nasal bleeding or discharge. Mucous membranes pink and moist. NECK: Supple. Trachea midline. CARDIOVASCULAR: Regular rate and rhythm. S1, S2 noted. No murmur appreciated. RESPIRATORY: No accessory muscle use. Clear to auscultation. Breath sounds equal bilaterally. GASTROINTESTINAL: Abdomen soft, nondistended. Normoactive bowel sounds x4. Mildly diffuse abdominal pain to right upper and left upper quadrants. MUSCULOSKELETAL: No obvious deformities. Extremities without clubbing, cyanosis , or edema. NEUROLOGICAL: Awake and alert. No obvious cranial nerve deficits. Motor grossly within normal limits. 5/5 muscle strength in bilateral upper and lower extremities. Normal speech. PSYCHIATRIC: Appropriate mood and affect; insight and judgment normal. A/P Assessment and Plan 32-year-old female being admitted for intractable abdominal pain Intractable abdominal pain suspect secondary to duodenitis, gastritis Anemia suspect secondary to acute blood loss - Likely multifactorial with possible cholecystitis/acute cholangitis along with 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 with acute hepatitis flare as well as possible peptic ulcers given history of hematemesis and melena - MRCP which was ordered is unremarkable for any intraductal obstruction - HIDA scan reviewed showing extremely poor hepatocellular function persistent blood pool activity. - Avoid Tylenol, pain control with morphine IV and oxycodone - Continue Cipro and Flagyl IV antibiotics. - Octreotide continued given history of heavy alcohol use. Continue Protonix drip. - Hemoglobin 6.4/hematocrit 19.6 patient is status post 2 units PRBC. CBC stable today, hemoglobin 7.9. Continue to monitor. Monitor for any bleeding. - Colonoscopy done by gastroenterology, showing some AVMs and hemorrhoids. ANTONINO screen negative. Hepatitis panel negative. Hypokalemia. Resolved. 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 - Monitor cardiac telemetry. Follow BMP. ETOH use Transaminitis suspect secondary to above Coagulopathy likely secondary to end-stage liver disease. - CIWA protocol. Given folic acid and thiamine. Monitor for any withdrawals. Seizure precautions. - INR 1.5, avoid blood thinners/anticoagulation - Total bilirubin worsening. - GI following. DVT prophylaxis: SCDs. Will hold chemical prophylaxis for now for GI bleed. Katia Be August 05, 2017 08:54
[2017-08-05 09:20] LABS: BANDS 1 % (0-6); LYMPHOCYTES 8 % (9-44); MONOCYTES 6 % (0-8); NEUTROPHIL # MANUAL DIFF 10.7 TH/MM3 (1.8-7.7); POLYS (SEG NEUTROPHILS) 85 % (16-70)
[2017-08-05] MEDS: CHOLESTYRAMINE 4 GM PACKET PO SCH (12:43)
[2017-08-05] MEDS: KETOROLAC TROMETHAMINE 30 MG/ML (IVP) VIAL IV PUSH SCH ×2 (12:44→18:00)
[2017-08-05] MEDS: OCTREOTIDE INJ 500 MCG in SODIUM CHLORID 0.9% 500 ML INJ 499.5 ML IV SCH (12:53)
[2017-08-05 14:00] VITALS: BP 94/55; PULSE 87; RESP 16; TEMP 97.8; O2SAT 95
[2017-08-05] MEDS: THIAMINE INJ 100 MG in SODIUM CHLORIDE 0.9% INJ 100 ML IV SCH (14:21)
[2017-08-05] MEDS ORDERED: FUROSEMIDE 40 MG/4 ML VIAL IV PUSH ONE (15:30)
[2017-08-05 16:00] VITALS: BP 87/54; PULSE 85; RESP 16; TEMP 96.7; O2SAT 97
[2017-08-05 17:45] VITALS: BP 81/58
[2017-08-05 20:00] VITALS: BP 90/56; PULSE 113; RESP 20; TEMP 97.9; O2SAT 98
[2017-08-05 20:22] LABS: AUTOMATED NEUTROPHIL # 11.3 TH/MM3 (1.8-7.7); BASOPHIL # 0.1 TH/MM3 (0-0.2); BASOPHIL % 0.7 % (0.0-2.0); EOSINOPHIL # 0.1 TH/MM3 (0-0.4); EOSINOPHIL % 0.7 % (0.0-4.0); HEMATOCRIT 24.8 % (35.0-46.0); HEMOGLOBIN 8.3 GM/DL (11.6-15.3); LYMPH % 10.3 % (9.0-44.0); LYMPHOCYTE # 1.4 TH/MM3 (1.0-4.8); MEAN CELL VOLUME 105.2 FL (80.0-100.0); MEAN CORPUSCULAR HEMOGLOBIN 35.3 PG (27.0-34.0); MEAN CORPUSCULAR HGB CONC 33.5 % (32.0-36.0); MEAN PLATELET VOLUME 8.3 FL (7.0-11.0); MONO % 4.7 % (0.0-8.0); MONOCYTE # 0.6 TH/MM3 (0-0.9); NEUT % 83.6 % (16.0-70.0); PLATELET COUNT 176 TH/MM3 (150-450); RED BLOOD COUNT 2.36 MIL/MM3 (4.00-5.30); RED CELL DISTRIBUTION WIDTH 24.3 % (11.6-17.2); WHITE BLOOD COUNT 13.5 TH/MM3 (4.0-11.0)
[2017-08-05] MEDS: PANTOPRAZOLE SODIUM 40 MG VIAL IV PUSH SCH (21:03)
[2017-08-05 21:11] LABS: STOMATOCYTES 1+ (NORMAL); TEARDROP RBCS 1+ (NORMAL)
[2017-08-06] VITALS: BP 91/55; PULSE 88; RESP 20; TEMP 97.8; O2SAT 96
[2017-08-06] MEDS: KETOROLAC TROMETHAMINE 30 MG/ML (IVP) VIAL IV PUSH SCH ×5 (00:01→22:36)
[2017-08-06] MEDS: diphenhydrAMINE HCL 50 MG CAP PO PRN ×2 (00:01→22:34)
[2017-08-06] MEDS: MORPHINE SULFATE 4 MG/ML INJ IV PUSH PRN ×2 (01:13→05:49)
[2017-08-06 03:50] LABS: ENDOMYSIAL AB SCREEN ND (NEGATIVE); ENDOMYSIAL AB TITER ND (<1:5); MITOCHONDRIAL ABS LESS THAN 20.0 U (<=20.0)
[2017-08-06] MEDS: metroNIDAZOLE 500 MG INJ 100 ML IV SCH ×2 (04:51→11:47)
[2017-08-06] MEDS: PENTOXIFYLLINE 400 MG CONTROLLED RELEASE TAB PO SCH ×3 (05:49→21:54)
[2017-08-06 08:00] VITALS: BP 88/64; PULSE 82; RESP 20; TEMP 98.4; O2SAT 99
[2017-08-06] MEDS: CHOLESTYRAMINE 4 GM PACKET PO SCH (08:42)
--- NOTE | 2017-08-06 09:12 | HHI.GIFU ---
Subjective Remarks Patient is resting in the bed multiple family members at her side Still having some generalized abdominal pain and bloating Positive for nausea and decreased appetite Current hemoglobin 9.2, INR 1.5 but no obvious bleeding (Rosio Jeffrey) Objective Vitals I&O Vital Signs Date Time Temp Pulse Resp B/P (MAP) Pulse Ox O2 Delivery O2 Flow Rate FiO2 08/06/17 08:00 98.4 82 20 88/64 (72) 99 08/06/17 00:00 97.8 88 20 91/55 (67) 96 08/05/17 20:00 97.9 113 20 90/56 (67) 98 08/05/17 17:45 81/58 (66) 08/05/17 16:00 96.7 85 16 87/54 (65) 97 08/05/17 14:16 16 08/05/17 14:00 97.8 87 16 94/55 (68) 95 08/05/17 13:44 16 I/O 08/05/17 08/05/17 08/05/17 08/06/17 08/06/17 08/06/17 07:00 15:00 23:00 07:00 15:00 23:00 Intake Total 1491 ml 300 ml 1573 ml 849 ml 120 ml Balance 1491 ml 300 ml 1573 ml 849 ml 120 ml Intake Oral 240 ml 480 ml 240 ml 120 ml IV Total 1251 ml 300 ml 1093 ml 609 ml # Voids 2 4 2 # Bowel Movements 0 2 1 Laboratory Laboratory Tests Test 08/05/17 20:06 White Blood Count 13.5 Red Blood Count 2.36 Hemoglobin 8.3 Hematocrit 24.8 Mean Corpuscular Volume 105.2 Mean Corpuscular Hemoglobin 35.3 Mean Corpuscular Hemoglobin Concent 33.5 Red Cell Distribution Width 24.3 Platelet Count 176 Mean Platelet Volume 8.3 Neutrophils (%) (Auto) 83.6 Lymphocytes (%) (Auto) 10.3 Monocytes (%) (Auto) 4.7 Eosinophils (%) (Auto) 0.7 Basophils (%) (Auto) 0.7 Neutrophils # (Auto) 11.3 Lymphocytes # (Auto) 1.4 Monocytes # (Auto) 0.6 Eosinophils # (Auto) 0.1 Basophils # (Auto) 0.1 CBC Comment AUTO DIFF Differential Comment AUTO DIFF CONFIRMED Tear Drop Cells 1+ Stomatocytes 1+ Date/Time Source Procedure Growth Status 08/01/17 18:05 Blood Peripheral Aerobic Blood Culture - Preliminary NO GROWTH IN 4 DAYS Resulted 08/01/17 18:05 Blood Peripheral Anaerobic Blood Culture - Preliminary NO GROWTH IN 4 DAYS Resulted 08/01/17 16:50 Urine Clean Catch Urine Culture - Final 10-50,000 CFU/ML MIXED GRAM POSITIVE ... Complete Imaging Last Impressions Hepatobiliary Scan Nuclear Medicine 08/02/17 0000 Signed Impressions: Service Date/Time: Wednesday, August 02, 2017 13:49 - CONCLUSION: 1. Extremely poor hepatocyte function with persistent blood pool activity and no significant excretion from the parenchyma during 96 minutes of continuous observation. 2. Due to the hepatocellular dysfunction, evaluation of the gallbladder cannot be performed. Den Juarez MD ADDENDUM: COMPARISON: MRCP W/O CONTRAST, August 01, 2017, 19:59. The patient returned for 18 hour delayed images. Much of the activity is still within the liver consistent with poor hepatic function. There does appear to be some activity seen in the gallbladder. Zaheer Oates MD Gall Bladder Ultrasound 08/01/17 0000 Signed Impressions: Service Date/Time: Tuesday, August 01, 2017 17:01 - CONCLUSION: 1. Hepatomegaly with diffusely echogenic hepatic parenchyma. Diminished hepatofugal flow in the portal vein. Overall findings may reflect subacute hepatitis versus profound hepatic steatosis versus medical liver disease. 2. Moderately distended gallbladder and common bile duct. Findings are concerning for acute distal CBD obstruction. Consider MRCP or ERCP examination for further evaluation. 3. Gallbladder sludge with mild diffuse gallbladder wall prominence. These findings are routinely seen in patients with chronic liver disease and significantly limit overall sonographic sensitivity for acute cholecystitis. Thompson Mcguire MD Cholangiopancreatography MRI 08/01/17 0000 Signed Impressions: Service Date/Time: Tuesday, August 01, 2017 19:59 - CONCLUSION: 1. Common bile duct is normal in caliber without focal intraductal abnormality. 2. Moderate gallbladder distention with trace pericholecystic fluid. This does raise the possibility for acute cholecystitis in the appropriate clinical setting. Consider HIDA scan to document cystic duct patency if there is persistent significant clinical concern. 3. Diffuse hepatomegaly similar to ultrasound exam. Again, differential considerations include profound hepatic steatosis versus medical liver disease versus subacute hepatitis given findings of diminished hepatopedal flow on ultrasound. Thompson Mcguire MD Physical Exam HEENT: Pupils round and reactive to light; normocephalic; atraumatic; obese with some generalized edema trunk and extremities NECK: Neck is supple, short CHEST: Generalized diminished breath sounds but no obvious rhonchi or wheezing CARDIAC: Regular rate and rhythm ABDOMEN: Round, taut, generalized abdominal tenderness to light palpation bowel sounds are present in all four quadrants. EXTREMITIES: Trace to 1+ lower extremity edema as well as generalized trace edema in her trunk and extremities edema. SKIN: dry; no rash; + jaundice. POULTRY BONER: Able to answer simple questions (Rosio Jeffrey) Assessment and Plan Plan 32-year-old female who came in with abdominal pain and anemia. Positive symptoms of nausea and decreased appetite. History includes EtOH abuse. Gallbladder ultrasound was done on 08/01/2017 which showed hepatomegaly with diffusely echogenic hepatic parenchyma. Diminished flow noted to the portal vein. MRCP showed common bile duct normal. Moderate gallbladder distention, possible cholecystitis. Diffuse hepatomegaly Hepatobiliary scan done on 08/02/2017 shows extremely poor HEPAS stop function with persistent blood pool activity. Hepatocellular dysfunction evaluation of the gallbladder could not be performed findings may represent subacute hepatitis versus profound hepatic steatosis versus liver disease, gallbladder disease. History of EtOH abuse EGD 08/03/17, Findings: Duodenitis bulb and second portion-biopsy gastritis antrum, hiatal hernia Colonoscopy: Findings Diverticulosis sigmoid,descending avm in midtransverse two small AVM's in rectum-s/p ablation using balltip external and internal hemorrhoids 08/06/2017, patient is having some borderline asymptomatic hypotension this a.m. blood pressure is between mid to low 80s systolic. Currently patient denies any dizziness but cautioned her when getting up out of the bed and having someone present. Patient continues with generalized abdominal pain and trace to 1+ edema noted in her lower extremities as well as her trunk. She continues with taking a few bites of food but is nauseated without vomiting, and has decreased appetite. Patient states history of positive alcohol usage, encouraged abstinence. Mildly elevated bilirubin level at 17.1 from yesterday' s 16.5. AST mildly to increased at 166 from previous 209, and ALT 32, folate 1.4 vitamin B12 602, AFP 2.9 alpha-1 antitrypsin 216 elevated, ceruloplasmin pending. Discussed possibility of liver biopsy which had already been mentioned to her by Dr. Marmolejo. Patient appears to have extensive liver disease , alcohol-related. Plan Await biopsies Liver workup labs pending and being evaluated Possible liver biopsy pending Diet, heart healthy as tolerated, Avoid alcohol PPI, Anti reflux regimen Benefiber 2 tsp daily Probiotics Proctozone cream as needed. Return 5 years Colonoscopy and EGD 1 year. Patient was seen per myself and Dr. Oswald, note was written on his behalf (Rosio Jeffrey) Plan Patient is doing okay, she is a little bit hypotensive, but overall doing well, generalized abdominal discomfort, will wait for the biopsy and the liver workup results (Marjorie Oswald MD) Rosio Jeffrey August 06, 2017 09:12 Marjorie Oswald MD August 06, 2017 10:53
[2017-08-06 09:32] LABS: HEMATOCRIT 28.5 % (35.0-46.0); HEMOGLOBIN 9.2 GM/DL (11.6-15.3); MEAN CELL VOLUME 106.3 FL (80.0-100.0); MEAN CORPUSCULAR HEMOGLOBIN 34.4 PG (27.0-34.0); MEAN CORPUSCULAR HGB CONC 32.3 % (32.0-36.0); MEAN PLATELET VOLUME 8.2 FL (7.0-11.0); PLATELET COUNT 164 TH/MM3 (150-450); RED BLOOD COUNT 2.68 MIL/MM3 (4.00-5.30); RED CELL DISTRIBUTION WIDTH 24.6 % (11.6-17.2); WHITE BLOOD COUNT 13.4 TH/MM3 (4.0-11.0)
[2017-08-06] MEDS: CIPROFLOXACIN 400 MG PREMIX 200 ML IV SCH (09:34)
[2017-08-06] MEDS: PANTOPRAZOLE SODIUM 40 MG VIAL IV PUSH SCH (09:49)
[2017-08-06 10:25] LABS: LYMPHOCYTES 26 % (9-44); MONOCYTES 6 % (0-8); NEUTROPHIL # MANUAL DIFF 9.1 TH/MM3 (1.8-7.7); POLYS (SEG NEUTROPHILS) 68 % (16-70); TARGET CELLS 1+ (NORMAL)
[2017-08-06 10:33] LABS: ALBUMIN 2.1 GM/DL (3.4-5.0); BICARBONATE 26.2 MEQ/L (21.0-32.0); CALCIUM 7.4 MG/DL (8.5-10.1); CALCIUM-PROTEIN CORRECTED 8.1 MG/DL (8.5-10.1); CREATININE 0.73 MG/DL (0.50-1.00); TOTAL BILIRUBIN ADULT 18.8 MG/DL (0.2-1.0); TOTAL PROTEIN 5.8 GM/DL (6.4-8.2)
[2017-08-06] MEDS ORDERED: FUROSEMIDE 20 MG/2 ML VIAL IV PUSH ONE (11:00)
--- NOTE | 2017-08-06 11:24 | HHI.PR ---
Subjective Remarks Follow-up intractable abdominal pain and end-stage liver disease. Patient seen and examined, walking the halls with mother at bedside. Patient states she has been eating well no abdominal pain. No nausea or vomiting. Patient denies any further hematozemia. Does complain of increased swelling in her upper thighs as well as abdomen. Blood pressure labile overnight. Asymptomatic. Continue to follow. Objective Vitals Vital Signs Date Time Temp Pulse Resp B/P (MAP) Pulse Ox O2 Delivery O2 Flow Rate FiO2 08/06/17 08:00 98.4 82 20 88/64 (72) 99 08/06/17 00:00 97.8 88 20 91/55 (67) 96 08/05/17 20:00 97.9 113 20 90/56 (67) 98 08/05/17 17:45 81/58 (66) 08/05/17 16:00 96.7 85 16 87/54 (65) 97 08/05/17 14:16 16 08/05/17 14:00 97.8 87 16 94/55 (68) 95 08/05/17 13:44 16 I/O 08/05/17 08/05/17 08/05/17 08/06/17 08/06/17 08/06/17 07:00 15:00 23:00 07:00 15:00 23:00 Intake Total 1491 ml 300 ml 1573 ml 849 ml 120 ml Balance 1491 ml 300 ml 1573 ml 849 ml 120 ml Intake Oral 240 ml 480 ml 240 ml 120 ml IV Total 1251 ml 300 ml 1093 ml 609 ml # Voids 2 4 2 # Bowel Movements 0 2 1 Result Diagram: 08/06/17 0855 08/06/17 0855 Imaging Last Impressions Hepatobiliary Scan Nuclear Medicine 08/02/17 0000 Signed Impressions: Service Date/Time: Wednesday, August 02, 2017 13:49 - CONCLUSION: 1. Extremely poor hepatocyte function with persistent blood pool activity and no significant excretion from the parenchyma during 96 minutes of continuous observation. 2. Due to the hepatocellular dysfunction, evaluation of the gallbladder cannot be performed. Den Juarez MD ADDENDUM: COMPARISON: MRCP W/O CONTRAST, August 01, 2017, 19:59. The patient returned for 18 hour delayed images. Much of the activity is still within the liver consistent with poor hepatic function. There does appear to be some activity seen in the gallbladder. Zaheer Oates MD Gall Bladder Ultrasound 08/01/17 0000 Signed Impressions: Service Date/Time: Tuesday, August 01, 2017 17:01 - CONCLUSION: 1. Hepatomegaly with diffusely echogenic hepatic parenchyma. Diminished hepatofugal flow in the portal vein. Overall findings may reflect subacute hepatitis versus profound hepatic steatosis versus medical liver disease. 2. Moderately distended gallbladder and common bile duct. Findings are concerning for acute distal CBD obstruction. Consider MRCP or ERCP examination for further evaluation. 3. Gallbladder sludge with mild diffuse gallbladder wall prominence. These findings are routinely seen in patients with chronic liver disease and significantly limit overall sonographic sensitivity for acute cholecystitis. Thompson Mcguire MD Cholangiopancreatography MRI 08/01/17 0000 Signed Impressions: Service Date/Time: Tuesday, August 01, 2017 19:59 - CONCLUSION: 1. Common bile duct is normal in caliber without focal intraductal abnormality. 2. Moderate gallbladder distention with trace pericholecystic fluid. This does raise the possibility for acute cholecystitis in the appropriate clinical setting. Consider HIDA scan to document cystic duct patency if there is persistent significant clinical concern. 3. Diffuse hepatomegaly similar to ultrasound exam. Again, differential considerations include profound hepatic steatosis versus medical liver disease versus subacute hepatitis given findings of diminished hepatopedal flow on ultrasound. Thompson Mcguire MD Objective Remarks GENERAL: Well-developed, well-nourished patient in [facility]. SKIN: Warm and dry. No rash. Jaundiced. Generalized anasarca. HEAD: Normocephalic. Atraumatic. EYES: Pupils equal and round. No scleral icterus. No injection or drainage. ENT: No nasal bleeding or discharge. Mucous membranes pink and moist. NECK: Supple. Trachea midline. CARDIOVASCULAR: Regular rate and rhythm. S1, S2 noted. No murmur appreciated. RESPIRATORY: No accessory muscle use. Clear to auscultation. Breath sounds equal bilaterally. GASTROINTESTINAL: Abdomen soft, nondistended. Normoactive bowel sounds x4. Mildly diffuse abdominal pain to right upper and left upper quadrants. MUSCULOSKELETAL: No obvious deformities. Extremities without clubbing, cyanosis , or edema. NEUROLOGICAL: Awake and alert. No obvious cranial nerve deficits. Motor grossly within normal limits. 5/5 muscle strength in bilateral upper and lower extremities. Normal speech. PSYCHIATRIC: Appropriate mood and affect; insight and judgment normal. A/P Assessment and Plan 32-year-old female being admitted for intractable abdominal pain Intractable abdominal pain suspect secondary to duodenitis, gastritis Anemia suspect secondary to acute blood loss. Resolved. - Likely multifactorial with possible cholecystitis/acute cholangitis along with 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 with acute hepatitis flare as well as possible peptic ulcers given history of hematemesis and melena - MRCP which was ordered is unremarkable for any intraductal obstruction - HIDA scan reviewed showing extremely poor hepatocellular function persistent blood pool activity. - Avoid Tylenol, pain control with morphine IV and oxycodone - Continue Cipro and Flagyl IV antibiotics. - Octreotide continued given history of heavy alcohol use. Protonix IV twice daily. - Hemoglobin 6.4/hematocrit 19.6 patient is status post 2 units PRBC. CBC stable today 9.2. Continue to monitor. Monitor for any bleeding. - Colonoscopy done by gastroenterology, showing some AVMs and hemorrhoids, cauterized. ANTONINO screen negative. Hepatitis panel negative. Will await further recommendations. Possible liver biopsy. Hypokalemia. Resolved. 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 - Monitor cardiac telemetry. Follow BMP. End-stage liver disease ETOH use Transaminitis suspect secondary to above Coagulopathy likely secondary to end-stage liver disease. - CIWA protocol. Given folic acid and thiamine. Monitor for any withdrawals. Seizure precautions. - INR 1.5, avoid blood thinners/anticoagulation - Total bilirubin worsening. - GI following. DVT prophylaxis: SCDs. Will hold chemical prophylaxis for now for GI bleed. Katia Be August 06, 2017 11:24
[2017-08-06] MEDS: THIAMINE HCL 100 MG TAB PO SCH (11:39)
[2017-08-06] MEDS: FOLIC ACID 1 MG TAB PO SCH (11:39)
[2017-08-06] MEDS: POTASSIUM CHLORIDE 25 MEQ EFFERVESCENT TAB NG SCH (11:39)
[2017-08-06 12:00] VITALS: BP 86/53; PULSE 82; RESP 16; TEMP 97.5; O2SAT 95
[2017-08-06] MEDS ORDERED: POTASSIUM CHLORIDE 10 MEQ CONTROLLED RELEASE TAB PO ONE (12:00)
[2017-08-06] MEDS: OCTREOTIDE INJ 500 MCG in SODIUM CHLORID 0.9% 500 ML INJ 499.5 ML IV SCH (12:03)
[2017-08-06] MEDS ORDERED: ALUMINUM/MAGNESIUM/SIMETH 30 ML CUP PO PRN (13:15)
[2017-08-06 16:00] VITALS: BP 86/48; PULSE 83; RESP 16; TEMP 96.7; O2SAT 98
[2017-08-06] MEDS ORDERED: ALBUMIN 25% INJ 100 ML IV ONE (17:15)
[2017-08-06 17:51] LABS: CERULOPLASMIN 45 mg/dL (18-53)
[2017-08-06 20:00] VITALS: BP 88/51; PULSE 82; RESP 20; TEMP 97.1; O2SAT 97
[2017-08-06] MEDS: CIPROFLOXACIN 500 MG TAB PO SCH (21:54)
[2017-08-06] MEDS: metroNIDAZOLE 500 MG TAB PO SCH (22:31)
[2017-08-07] VITALS (8 sets, daily range): BP systolic 79–93; BP diastolic 51–64; PULSE 77–90; RESP 19–20; TEMP 97.5–99.5; O2SAT 95–99
[2017-08-07] MEDS: KETOROLAC TROMETHAMINE 30 MG/ML (IVP) VIAL IV PUSH SCH ×4 (05:21→23:19)
[2017-08-07] MEDS: metroNIDAZOLE 500 MG TAB PO SCH ×3 (05:22→22:07)
[2017-08-07] MEDS: PENTOXIFYLLINE 400 MG CONTROLLED RELEASE TAB PO SCH ×3 (05:22→22:07)
[2017-08-07] MEDS: MORPHINE SULFATE 4 MG/ML INJ IV PUSH PRN ×2 (08:15→16:19)
[2017-08-07] MEDS: PANTOPRAZOLE SODIUM 40 MG VIAL IV PUSH SCH (08:16)
[2017-08-07] MEDS: SODIUM CHLORIDE 0.9% FLUSH 10 ML FLUSH IV FLUSH PRN ×5 (08:16→23:20)
[2017-08-07] MEDS: CHOLESTYRAMINE 4 GM PACKET PO SCH (08:18)
[2017-08-07] MEDS: POTASSIUM CHLORIDE 25 MEQ EFFERVESCENT TAB NG SCH (08:18)
[2017-08-07] MEDS: SPIRONOLACTONE 25 MG TAB PO SCH (08:20)
[2017-08-07] MEDS: CIPROFLOXACIN 500 MG TAB PO SCH ×2 (08:20→22:07)
[2017-08-07] MEDS: FOLIC ACID 1 MG TAB PO SCH (08:20)
[2017-08-07] MEDS: THIAMINE HCL 100 MG TAB PO SCH (08:20)
--- NOTE | 2017-08-07 11:14 | HHI.PR ---
Subjective Remarks Follow-up end-stage liver disease. Patient's seen and examined, lying in bed with continued uncontrolled abdominal pain as well as increasing complaints of swelling in her bilateral thighs and abdomen. Patient is eating well with no nausea or vomiting. Later this morning gastroenterology assess patient with patient complaining of right upper and lower extremity numbness as well as tingling in her fingers. Will obtain head CT. Continue to monitor. Objective Vitals Vital Signs Date Time Temp Pulse Resp B/P (MAP) Pulse Ox O2 Delivery O2 Flow Rate FiO2 08/07/17 08:20 18 08/07/17 08:00 99.5 81 20 93/61 (72) 96 08/07/17 00:00 98.8 81 20 84/51 (62) 95 08/06/17 20:00 97.1 82 20 88/51 (63) 97 08/06/17 18:50 17 08/06/17 16:00 96.7 83 16 86/48 (61) 98 08/06/17 12:00 97.5 82 16 86/53 (64) 95 I/O 08/06/17 08/06/17 08/06/17 08/07/17 08/07/17 08/07/17 07:00 15:00 23:00 07:00 15:00 23:00 Intake Total 849 ml 920 ml 340 ml 60 ml Balance 849 ml 920 ml 340 ml 60 ml Intake Oral 240 ml 120 ml 240 ml 60 ml IV Total 609 ml 800 ml 100 ml # Voids 2 2 2 # Bowel Movements 1 1 1 Result Diagram: 08/06/17 0855 08/06/17 0855 Imaging Last Impressions Hepatobiliary Scan Nuclear Medicine 08/02/17 0000 Signed Impressions: Service Date/Time: Wednesday, August 02, 2017 13:49 - CONCLUSION: 1. Extremely poor hepatocyte function with persistent blood pool activity and no significant excretion from the parenchyma during 96 minutes of continuous observation. 2. Due to the hepatocellular dysfunction, evaluation of the gallbladder cannot be performed. Den Juarez MD ADDENDUM: COMPARISON: MRCP W/O CONTRAST, August 01, 2017, 19:59. The patient returned for 18 hour delayed images. Much of the activity is still within the liver consistent with poor hepatic function. There does appear to be some activity seen in the gallbladder. Zaheer Oates MD Gall Bladder Ultrasound 4/29/18 0000 Signed Impressions: Service Date/Time: Tuesday, August 01, 2017 17:01 - CONCLUSION: 1. Hepatomegaly with diffusely echogenic hepatic parenchyma. Diminished hepatofugal flow in the portal vein. Overall findings may reflect subacute hepatitis versus profound hepatic steatosis versus medical liver disease. 2. Moderately distended gallbladder and common bile duct. Findings are concerning for acute distal CBD obstruction. Consider MRCP or ERCP examination for further evaluation. 3. Gallbladder sludge with mild diffuse gallbladder wall prominence. These findings are routinely seen in patients with chronic liver disease and significantly limit overall sonographic sensitivity for acute cholecystitis. Thompson Mcguire MD Cholangiopancreatography MRI 08/01/17 0000 Signed Impressions: Service Date/Time: Tuesday, August 01, 2017 19:59 - CONCLUSION: 1. Common bile duct is normal in caliber without focal intraductal abnormality. 2. Moderate gallbladder distention with trace pericholecystic fluid. This does raise the possibility for acute cholecystitis in the appropriate clinical setting. Consider HIDA scan to document cystic duct patency if there is persistent significant clinical concern. 3. Diffuse hepatomegaly similar to ultrasound exam. Again, differential considerations include profound hepatic steatosis versus medical liver disease versus subacute hepatitis given findings of diminished hepatopedal flow on ultrasound. Thompson Mcguire MD Objective Remarks GENERAL: Well-developed, well-nourished patient in [facility]. SKIN: Warm and dry. No rash. Jaundiced. Generalized anasarca. HEAD: Normocephalic. Atraumatic. EYES: Pupils equal and round. No scleral icterus. No injection or drainage. ENT: No nasal bleeding or discharge. Mucous membranes pink and moist. NECK: Supple. Trachea midline. CARDIOVASCULAR: Regular rate and rhythm. S1, S2 noted. No murmur appreciated. RESPIRATORY: No accessory muscle use. Clear to auscultation. Breath sounds equal bilaterally. GASTROINTESTINAL: Abdomen soft, nondistended. Normoactive bowel sounds x4. Mildly diffuse abdominal pain to right upper and left upper quadrants. MUSCULOSKELETAL: No obvious deformities. Extremities without clubbing, cyanosis , or edema. NEUROLOGICAL: Awake and alert. No obvious cranial nerve deficits. Motor grossly within normal limits. 5/5 muscle strength in bilateral upper and lower extremities. Normal speech. PSYCHIATRIC: Appropriate mood and affect; insight and judgment normal. A/P Assessment and Plan 32-year-old female being admitted for intractable abdominal pain Intractable abdominal pain suspect secondary to duodenitis, gastritis Anemia suspect secondary to acute blood loss. Resolved. - Likely multifactorial with possible cholecystitis/acute cholangitis along with 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 with acute hepatitis flare as well as possible peptic ulcers given history of hematemesis and melena - MRCP which was ordered is unremarkable for any intraductal obstruction - HIDA scan reviewed showing extremely poor hepatocellular function persistent blood pool activity. - Avoid Tylenol, pain control with morphine IV and oxycodone - Continue Cipro and Flagyl IV antibiotics. - Octreotide continued given history of heavy alcohol use. Protonix IV twice daily. - Hemoglobin 6.4/hematocrit 19.6 patient is status post 2 units PRBC. CBC stable today 9.2. Continue to monitor. Monitor for any bleeding. - Colonoscopy done by gastroenterology, showing some AVMs and hemorrhoids, cauterized. ANTONINO screen negative. Hepatitis panel negative. Will await further recommendations. Possible liver biopsy. Right-sided numbness and tingling - Patient is able to move both right upper and lower extremities. - A stat head CT ordered, rule out TIA versus CVA versus other etiology Hypokalemia. Resolved. 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 - Monitor cardiac telemetry. Follow BMP. End-stage liver disease ETOH use Transaminitis suspect secondary to above Coagulopathy likely secondary to end-stage liver disease. Asymptomatic hypotension suspect secondary to above. - CIWA protocol. Given folic acid and thiamine. Monitor for any withdrawals. Seizure precautions. - INR 1.5, avoid blood thinners/anticoagulation - Total bilirubin worsening. - Albumin given yesterday. Lasix x 1 with mild response. Spirolactone added, monitor BP with administration. Parameters ordered. - GI following. DVT prophylaxis: SCDs. Will hold chemical prophylaxis for now for GI bleed. Katia Be August 07, 2017 11:14
--- NOTE | 2017-08-07 12:08 | HHI.GIFU ---
GI Follow-up Note Consult Follow-up Subjective: Patient laying in bed , sleepy.Just received Morphine.Family in the room.Denies nausea, vomiting, diarrhea , gi bleeding.complaining of abdominal pain, states not better , also feels her abdomen more swollen, clinically looks softer .Also reports left side of her body numb, motility intact.Discussed with medical team , they will order work-up. egd/colonoscopy done -biopsises, serology negative for celiac disease .Elevated lfts, concern for cholecystitis,, work-up suggesting poo liver function, most likely secondary to etoh liver disease Objective: PHYSICAL EXAMINATION: Vitals signs stable No fever Vital Signs Date Time Temp Pulse Resp B/P (MAP) Pulse Ox O2 Delivery O2 Flow Rate FiO2 08/07/17 08:20 18 08/07/17 08:00 99.5 81 20 93/61 (72) 96 HEENT: Pupils round and reactive to light; normocephalic; atraumatic; jaundice. Throat is clear. NECK: Neck is supple, no JVD, no lymphadenopathy. CHEST: Chest is clear to auscultation and percussion. CARDIAC: Regular rate and rhythm with no murmur gallop or rubs. ABDOMEN: Soft, nondistended, upper abdomen tender; hepatosplenomegaly; bowel sounds are present in all four quadrants. EXTREMITIES: No clubbing, cyanosis, or edema. SKIN: Normal; no rash; jaundice. G[employer]AGE [employer]ER: No focal deficits; alert and oriented times three, sleepy Available Data (labs, X- Rays, Procedues) : Laboratory Tests Test 08/05/17 20:06 08/06/17 08:55 White Blood Count 13.5 TH/MM3 13.4 TH/MM3 Red Blood Count 2.36 MIL/MM3 2.68 MIL/MM3 Hemoglobin 8.3 GM/DL 9.2 GM/DL Hematocrit 24.8 % 28.5 % Mean Corpuscular Volume 105.2 FL 106.3 FL Mean Corpuscular Hemoglobin 35.3 PG 34.4 PG Mean Corpuscular Hemoglobin Concent 33.5 % 32.3 % Red Cell Distribution Width 24.3 % 24.6 % Platelet Count 176 TH/MM3 164 TH/MM3 Mean Platelet Volume 8.3 FL 8.2 FL Neutrophils (%) (Auto) 83.6 % Lymphocytes (%) (Auto) 10.3 % Monocytes (%) (Auto) 4.7 % Eosinophils (%) (Auto) 0.7 % Basophils (%) (Auto) 0.7 % Neutrophils # (Auto) 11.3 TH/MM3 Lymphocytes # (Auto) 1.4 TH/MM3 Monocytes # (Auto) 0.6 TH/MM3 Eosinophils # (Auto) 0.1 TH/MM3 Basophils # (Auto) 0.1 TH/MM3 CBC Comment AUTO DIFF AUTO DIFF Differential Comment AUTO DIFF CONFIRMED FINAL DIFF MANUAL Tear Drop Cells 1+ Stomatocytes 1+ Differential Total Cells Counted 100 Neutrophils % (Manual) 68 % Lymphocytes % 26 % Monocytes % 6 % Neutrophils # (Manual) 9.1 TH/MM3 Platelet Estimate NORMAL Platelet Morphology Comment NORMAL Target Cells 1+ Blood Urea Nitrogen 11 MG/DL Creatinine 0.73 MG/DL Random Glucose 82 MG/DL Total Protein 5.8 GM/DL Albumin 2.1 GM/DL Calcium Level 7.4 MG/DL Alkaline Phosphatase 164 U/L Aspartate Amino Transf (AST/SGOT) 235 U/L Alanine Aminotransferase (ALT/SGPT) 36 U/L Total Bilirubin 18.8 MG/DL Sodium Level 138 MEQ/L Potassium Level 3.3 MEQ/L Chloride Level 104 MEQ/L Carbon Dioxide Level 26.2 MEQ/L Anion Gap 8 MEQ/L Estimat Glomerular Filtration Rate 91 ML/MIN Protein Corrected Calcium 8.1 MG/DL ASSESSMENT/PLAN: anemia-multifactorial -no indication of active gi bleeding. s/p transfusion , egd/colonoscopy questionable history of celiac disease-biopsy, serology negative elevated lfts secondary to etoh liver disease cirrhosis secondary etoh-additional work-up in progress hepatosplenomegaly secondary to etoh liver disease abnormal gb studies, extensive work-up favor liver insufficiency over cholecystitis abdominal pain -not improving-we will order ct abdomen/pelvis left sided numbness medical team will order work-up Recommendations ct abdomen/pelvis neuro w-up as per medical team fu labs avoid etoh , hepatotoxics continue current management may add lasix/spironolactone if lfts not better-liver biopsy next week It was a pleasure seeing Elvira Camacho. Thank you for this consult. Entered by: Tiffany Eng MD August 07, 2017 12:08
[2017-08-07] MEDS ORDERED: DIATRIZOATE MEGLUM/DIATRIZOATE SOD 9 ML CUP PO ONE (12:15)
[2017-08-07] MEDS ORDERED: ALPRAZolam 0.25 MG TAB PO ONE (13:45)
[2017-08-07] MEDS ORDERED: IOHEXOL 350 MG/ML 10 ML VIAL (for RAD DIAG) IVCONTRAST ONE (15:35)
--- NOTE | 2017-08-07 17:14 | RADRPT ---
EXAM DATE/TIME: 08/07/2017 14:52 [facility] COMPARISON: None. INDICATIONS : Left extremity numbness. RADIATION DOSE: 57.98 CTDIvol (mGy) MEDICAL HISTORY : Hypertension. Pituitary tumor. SURGICAL HISTORY : None. ENCOUNTER: Initial ACUITY: 1 day PAIN SCALE: 0/10 LOCATION: cranial TECHNIQUE: Multiple contiguous axial images were obtained of the head. Using automated exposure control and adj ustment of the mA and/or kV according to patient size, radiation dose was kept as low as reasonably a chievable to obtain optimal diagnostic quality images. DICOM format image data is available electro nically for review and comparison. FINDINGS: CEREBRUM: The ventricles are normal for age. No evidence of midline shift, mass lesion, hemorrhage or acute in farction. No extra-axial fluid collections are seen. POSTERIOR FOSSA: The cerebellum and brainstem are intact. The 4th ventricle is midline. The cerebellopontine angle i s unremarkable. EXTRACRANIAL: The visualized portion of the orbits is intact. SKULL: The calvaria is intact. No evidence of skull fracture. CONCLUSION: No acute disease. Giacomo Holguin MD on August 07, 2017 at 17:09 Board Certified Radiologist. This report was verified electronically.
--- NOTE | 2017-08-07 17:43 | RADRPT ---
EXAM DATE/TIME: 08/07/2017 14:56 [facility] COMPARISON: No previous studies available for comparison. INDICATIONS : Diffuse abdominal pain and bloating with episode of rectal bleeding. IV CONTRAST: 95 cc Omnipaque 350 (iohexol) IV ORAL CONTRAST: Prescribed oral contrast ingested. RADIATION DOSE: 22.23 CTDIvol (mGy) MEDICAL HISTORY : Hypertension. Pituitary tumor SURGICAL HISTORY : None. ENCOUNTER: Initial ACUITY: 1 month PAIN SCALE: 6/10 LOCATION: Bilateral pelvis abdomen TECHNIQUE: Volumetric scanning of the abdomen and pelvis was performed. Using automated exposure control and ad justment of the mA and/or kV according to patient size, radiation dose was kept as low as reasonably achievable to obtain optimal diagnostic quality images. DICOM format image data is available electro nically for review and comparison. FINDINGS: Marked hepatomegaly is again noted. Diffuse heterogeneity of the liver parenchyma is noted suggestive of diffuse hepatocellular disease, fatty infiltration or possible hepatitis. The spleen is markedly enlarged. The gallbladder is distended. There is minimal pericholecystic fluid noted. A small amount of ascites is noted within the abdomen and pelvis. The pancreas is normal. The adrenal glands are nor mal. The kidneys are unremarkable. The bowel aorta and inferior vena cava are unremarkable. No bowel obstruction is noted. The colon is nondistended. Small bowel loops are unremarkable. The uterus is un remarkable. A small right pleural effusion with adjacent compressive atelectasis is noted. CONCLUSION: 1. Marked hepatomegaly. 2. Diffuse heterogeneity of the liver parenchyma suggestive of diffuse hepatocellular disease, fatty infiltration or possible hepatitis. 3. Marked splenomegaly. 4. Distended gallbladder with minimal pericholecystic fluid. 5. Small amount of ascites within the abdomen and pelvis. 6. Small right pleural effusion with adjacent compressive atelectasis. Giacomo Holguin MD on August 07, 2017 at 17:35 Board Certified Radiologist. This report was verified electronically.
[2017-08-07] MEDS ORDERED: FUROSEMIDE 40 MG/4 ML VIAL IV PUSH SCH (18:00)
[2017-08-07] MEDS: diphenhydrAMINE HCL 50 MG CAP PO PRN (23:18)
[2017-08-08] VITALS: BP 81/49; PULSE 88; RESP 20; TEMP 97.8; O2SAT 96
[2017-08-08] MEDS: metroNIDAZOLE 500 MG TAB PO SCH (06:18)
[2017-08-08] MEDS: KETOROLAC TROMETHAMINE 30 MG/ML (IVP) VIAL IV PUSH SCH ×4 (06:19→22:35)
[2017-08-08 08:00] VITALS: BP 80/45; PULSE 85; RESP 15; TEMP 99.6; O2SAT 96
[2017-08-08] MEDS: prednisoLONE 10 MG ODT TAB PO SCH (08:47)
[2017-08-08] MEDS: POTASSIUM CHLORIDE 25 MEQ EFFERVESCENT TAB NG SCH (08:48)
[2017-08-08] MEDS: SPIRONOLACTONE 25 MG TAB PO SCH (08:48)
[2017-08-08] MEDS: CHOLESTYRAMINE 4 GM PACKET PO SCH (08:48)
[2017-08-08] MEDS: FOLIC ACID 1 MG TAB PO SCH (08:48)
[2017-08-08] MEDS: CIPROFLOXACIN 500 MG TAB PO SCH (08:48)
[2017-08-08] MEDS: THIAMINE HCL 100 MG TAB PO SCH (08:48)
[2017-08-08] MEDS: PANTOPRAZOLE SODIUM 40 MG VIAL IV PUSH SCH (08:49)
[2017-08-08] MEDS: SODIUM CHLORIDE 0.9% FLUSH 10 ML FLUSH IV FLUSH PRN ×3 (08:50→22:45)
[2017-08-08] MEDS ORDERED: SPIRONOLACTONE 100 MG TAB PO SCH (09:00)
--- NOTE | 2017-08-08 09:47 | HHI.PR ---
Subjective Remarks Follow-up end-stage liver disease. Patient seen and examined, states she feels improved overnight, swelling in her thighs and lower extremities have improved. Abdominal distention improved with use of Lasix. Pain is controlled on current regimen. Eating well with no abdominal pain, nausea or vomiting. Has been ambulating well with no weakness. Asymptomatic hypotension. We will continue to monitor. Head CT negative. No continued numbness or headache. Transaminitis still worsening. Objective Vitals Vital Signs Date Time Temp Pulse Resp B/P (MAP) Pulse Ox O2 Delivery O2 Flow Rate FiO2 08/08/17 00:00 97.8 88 20 81/49 (60) 96 08/07/17 23:13 88 79/52 (61) 08/07/17 22:08 80/57 (65) 08/07/17 20:00 97.5 90 20 86/53 (64) 99 08/07/17 16:24 18 08/07/17 16:15 92/64 (73) 08/07/17 16:00 98.4 85 20 92/64 (73) 99 08/07/17 12:17 18 08/07/17 12:00 99.3 77 19 85/60 (68) 96 I/O 08/07/17 08/07/17 08/07/17 08/08/17 08/08/17 08/08/17 07:00 15:00 23:00 07:00 15:00 23:00 Intake Total 60 ml 1070 ml 60 ml Balance 60 ml 1070 ml 60 ml Intake Oral 60 ml 1070 ml 60 ml # Voids 2 4 2 # Bowel Movements 1 3 1 Result Diagram: 08/06/17 0855 08/06/17 0855 Imaging Last Impressions Head CT 08/07/17 0000 Signed Impressions: Service Date/Time: Monday, August 07, 2017 14:52 - CONCLUSION: No acute disease. Giacomo Holguin MD Abdomen/Pelvis CT 08/07/17 0000 Signed Impressions: Service Date/Time: Monday, August 07, 2017 14:56 - CONCLUSION: 1. Marked hepatomegaly. 2. Diffuse heterogeneity of the liver parenchyma suggestive of diffuse hepatocellular disease, fatty infiltration or possible hepatitis. 3. Marked splenomegaly. 4. Distended gallbladder with minimal pericholecystic fluid. 5. Small amount of ascites within the abdomen and pelvis. 6. Small right pleural effusion with adjacent compressive atelectasis. Giacomo Holguin MD Hepatobiliary Scan Nuclear Medicine 08/02/17 0000 Signed Impressions: Service Date/Time: Wednesday, August 02, 2017 13:49 - CONCLUSION: 1. Extremely poor hepatocyte function with persistent blood pool activity and no significant excretion from the parenchyma during 96 minutes of continuous observation. 2. Due to the hepatocellular dysfunction, evaluation of the gallbladder cannot be performed. Den Juarez MD ADDENDUM: COMPARISON: MRCP W/O CONTRAST, August 01, 2017, 19:59. The patient returned for 18 hour delayed images. Much of the activity is still within the liver consistent with poor hepatic function. There does appear to be some activity seen in the gallbladder. Zaheer Oates MD Gall Bladder Ultrasound 08/01/17 0000 Signed Impressions: Service Date/Time: Tuesday, August 01, 2017 17:01 - CONCLUSION: 1. Hepatomegaly with diffusely echogenic hepatic parenchyma. Diminished hepatofugal flow in the portal vein. Overall findings may reflect subacute hepatitis versus profound hepatic steatosis versus medical liver disease. 2. Moderately distended gallbladder and common bile duct. Findings are concerning for acute distal CBD obstruction. Consider MRCP or ERCP examination for further evaluation. 3. Gallbladder sludge with mild diffuse gallbladder wall prominence. These findings are routinely seen in patients with chronic liver disease and significantly limit overall sonographic sensitivity for acute cholecystitis. Thompson Mcguire MD Cholangiopancreatography MRI 08/01/17 0000 Signed Impressions: Service Date/Time: Tuesday, August 01, 2017 19:59 - CONCLUSION: 1. Common bile duct is normal in caliber without focal intraductal abnormality. 2. Moderate gallbladder distention with trace pericholecystic fluid. This does raise the possibility for acute cholecystitis in the appropriate clinical setting. Consider HIDA scan to document cystic duct patency if there is persistent significant clinical concern. 3. Diffuse hepatomegaly similar to ultrasound exam. Again, differential considerations include profound hepatic steatosis versus medical liver disease versus subacute hepatitis given findings of diminished hepatopedal flow on ultrasound. Thompson Mcguire MD Objective Remarks GENERAL: Well-developed, well-nourished patient in NAD. SKIN: Warm and dry. No rash. Jaundiced. HEAD: Normocephalic. Atraumatic. EYES: Pupils equal and round. No scleral icterus. No injection or drainage. ENT: No nasal bleeding or discharge. Mucous membranes pink and moist. NECK: Supple. Trachea midline. CARDIOVASCULAR: Regular rate and rhythm. S1, S2 noted. No murmur appreciated. RESPIRATORY: No accessory muscle use. Clear to auscultation. Breath sounds equal bilaterally. GASTROINTESTINAL: Abdomen soft, nondistended. Normoactive bowel sounds x4. Mildly diffuse abdominal pain to right upper and left upper quadrants. MUSCULOSKELETAL: No obvious deformities. Extremities without clubbing, cyanosis , or edema. NEUROLOGICAL: Awake and alert. No obvious cranial nerve deficits. Motor grossly within normal limits. 5/5 muscle strength in bilateral upper and lower extremities. Normal speech. PSYCHIATRIC: Appropriate mood and affect; insight and judgment normal. A/P Assessment and Plan 32-year-old female being admitted for intractable abdominal pain Intractable abdominal pain suspect secondary to duodenitis, gastritis. Resolving. Anemia suspect secondary to acute blood loss. Resolved. 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 Asymptomatic hypotension suspect secondary to above - MRCP which was ordered is unremarkable for any intraductal obstruction - HIDA scan reviewed showing extremely poor hepatocellular function persistent blood pool activity. - Avoid Tylenol, pain control with morphine IV and oxycodone. - Continue Cipro and Flagyl IV antibiotics. Will DC, finished course. - Octreotide continued given history of heavy alcohol use. Bleeding stopped. Will stop. Protonix IV twice daily. - Hemoglobin 6.4/hematocrit 19.6 patient is status post 2 units PRBC. CBC stable today 9.0. Continue to monitor. Monitor for any bleeding. - Colonoscopy done by gastroenterology, showing some AVMs and hemorrhoids, cauterized. ANTONINO screen negative. Hepatitis panel negative. Will await further recommendations. Possible liver biopsy. - CIWA protocol. Given folic acid and thiamine. Monitor for any withdrawals. Seizure precautions. - Total bilirubin worsening. GI following and appreciate input and recommendations. - Albumin given. Lasix x 1 with mild response. Spirolactone added, monitor BP with administration. Parameters ordered. - Patient's Maddrey's Discriminant Function score is 33.5. Predinisone started daily. Right-sided numbness and tingling. Resolved. - Head CT ordered, negative. Hypokalemia. Resolved. 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 - Monitor cardiac telemetry. Follow BMP. DVT prophylaxis: SCDs. Will hold chemical prophylaxis for now for GI bleed. Katia Be August 08, 2017 09:47
[2017-08-08 11:19] LABS: CHLORIDE 106 MEQ/L (98-107); SODIUM (NA) 140 MEQ/L (136-145)
[2017-08-08 11:22] LABS: CALCIUM 7.9 MG/DL (8.5-10.1)
[2017-08-08 11:23] LABS: ALBUMIN 2.1 GM/DL (3.4-5.0); BICARBONATE 25.3 MEQ/L (21.0-32.0); BLOOD UREA NITROGEN 12 MG/DL (7-18); GLUCOSE,RANDOM 88 MG/DL (74-106)
[2017-08-08 11:26] LABS: ALT (GPT) 34 U/L (10-53); AST (GOT) 179 U/L (15-37); CREATININE 0.72 MG/DL (0.50-1.00); GLOMERULAR FILTRATION RATE 93 ML/MIN (>89)
[2017-08-08 11:28] LABS: TOTAL BILIRUBIN ADULT 19.7 MG/DL (0.2-1.0); TOTAL PROTEIN 5.5 GM/DL (6.4-8.2)
[2017-08-08 11:29] LABS: ALKALINE PHOSPHATASE 220 U/L (45-117); HEMATOCRIT 26.1 % (35.0-46.0); MEAN CELL VOLUME 107.9 FL (80.0-100.0); MEAN CORPUSCULAR HGB CONC 34.3 % (32.0-36.0); MEAN PLATELET VOLUME 8.8 FL (7.0-11.0); PLATELET COUNT 185 TH/MM3 (150-450); RED BLOOD COUNT 2.42 MIL/MM3 (4.00-5.30); RED CELL DISTRIBUTION WIDTH 24.8 % (11.6-17.2); WHITE BLOOD COUNT 13.7 TH/MM3 (4.0-11.0)
[2017-08-08 12:00] VITALS: BP 88/60; PULSE 86; RESP 16; TEMP 97.5; O2SAT 94
[2017-08-08] MEDS: MORPHINE SULFATE 4 MG/ML INJ IV PUSH PRN ×3 (12:01→22:45)
[2017-08-08 12:23] LABS: INTERNATIONAL NORMALIZED RATIO 1.7 RATIO
[2017-08-08 13:16] LABS: BANDS 4 % (0-6); CORRECTED NUCLEATED RBC 2 /100 WBC (0-0); LYMPHOCYTES 9 % (9-44); METAMYELOCYTES 4 % (0-1); MONOCYTES 4 % (0-8); NEUTROPHIL # MANUAL DIFF 11.9 TH/MM3 (1.8-7.7); NUCLEATED RED BLOOD CELL 2 (0-0); POLYS (SEG NEUTROPHILS) 79 % (16-70)
[2017-08-08 13:19] LABS: STOMATOCYTES 1+ (NORMAL); TOXIC GRANULATION 1+ (NORMAL)
[2017-08-08 16:00] VITALS: BP 90/50; PULSE 93; RESP 16; TEMP 97.6; O2SAT 93
--- NOTE | 2017-08-08 17:06 | HHI.GIFU ---
GI Follow-up Note Consult Follow-up Subjective: Patient laying in bed comfortably, feeling better.No nausea, vomiting , feeling better after Lasix.BP dropped , so on hold for now Objective: PHYSICAL EXAMINATION: Vitals signs stable No fever Vital Signs Date Time Temp Pulse Resp B/P (MAP) Pulse Ox O2 Delivery O2 Flow Rate FiO2 08/08/17 13:01 18 08/08/17 12:06 18 08/08/17 12:00 97.5 86 16 88/60 (69) 94 HEENT: Pupils round and reactive to light; normocephalic; atraumatic; jaundice. Throat is clear. NECK: Neck is supple, no JVD, no lymphadenopathy. CHEST: Chest is clear to auscultation and percussion. CARDIAC: Regular rate and rhythm with no murmur gallop or rubs. ABDOMEN: Soft, nondistended, nontender; hepatosplenomegaly; bowel sounds are present in all four quadrants. EXTREMITIES: No clubbing, cyanosis, or edema. SKIN: Normal; no rash; jaundice. FRENCH CORD BINDER: No focal deficits; alert and oriented times three. Available Data (labs, X- Rays, Procedues) : Laboratory Tests Test 08/08/17 07:52 08/08/17 11:38 White Blood Count 13.7 TH/MM3 Red Blood Count 2.42 MIL/MM3 Hemoglobin 9.0 GM/DL Hematocrit 26.1 % Mean Corpuscular Volume 107.9 FL Mean Corpuscular Hemoglobin 37.0 PG Mean Corpuscular Hemoglobin Concent 34.3 % Red Cell Distribution Width 24.8 % Platelet Count 185 TH/MM3 Mean Platelet Volume 8.8 FL CBC Comment AUTO DIFF Differential Total Cells Counted 100 Neutrophils % (Manual) 79 % Band Neutrophils % 4 % Lymphocytes % 9 % Monocytes % 4 % Neutrophils # (Manual) 11.9 TH/MM3 Metamyelocytes 4 % Nucleated Red Blood Cells 2 /100 WBC Differential Comment FINAL DIFF MANUAL Toxic Granulation 1+ Platelet Estimate NORMAL Platelet Morphology Comment NORMAL Stomatocytes 1+ Blood Urea Nitrogen 12 MG/DL Creatinine 0.72 MG/DL Random Glucose 88 MG/DL Total Protein 5.5 GM/DL Albumin 2.1 GM/DL Calcium Level 7.9 MG/DL Alkaline Phosphatase 220 U/L Aspartate Amino Transf (AST/SGOT) 179 U/L Alanine Aminotransferase (ALT/SGPT) 34 U/L Total Bilirubin 19.7 MG/DL Sodium Level 140 MEQ/L Potassium Level 4.1 MEQ/L Chloride Level 106 MEQ/L Carbon Dioxide Level 25.3 MEQ/L Anion Gap 9 MEQ/L Estimat Glomerular Filtration Rate 93 ML/MIN Thyroid Stimulating Hormone 3rd Gen 2.690 uIU/ML Random Cortisol 20.3 MCG/DL Prothrombin Time 17.0 SEC Prothromb Time International Ratio 1.7 RATIO ASSESSMENT/PLAN: etoh liver disease hepatosplenomegaly secondary etoh liver disease anemia multifactorial- s/p prbc no active bleeding abdominal pain -better abnormal gb, doubt cholecystitis elevated lfts, elevated ama -liver biopsy in am questionable history of celiac-biopsy, serology negative Recommendations continue Prednisolone 40 mg po daily- 4 weeks continue Actigall hold Trental Aldactone 25 mg po daily hold Lasix daily, can use prn if bp improves may add Lasix fu cortisol level surgery was consulted for abnormal gb and abdominal pain which was not getting better until today, when seems to be improved avoid etoh It was a pleasure seeing Elvira Camacho. Thank you for this consult. Entered by: Tiffany Eng MD August 08, 2017 17:06
[2017-08-08] MEDS ORDERED: PHYTONADIONE 10 MG/ML VIAL SQ ONE (17:15)
[2017-08-08] MEDS: diphenhydrAMINE HCL 50 MG CAP PO PRN (22:35)
[2017-08-08 22:38] VITALS: BP 85/62; PULSE 84; RESP 20; TEMP 96; O2SAT 100
[2017-08-08 22:39] VITALS: BP 88/65
[2017-08-09] VITALS (17 sets, daily range): BP systolic 70–103; BP diastolic 42–63; PULSE 84–107; RESP 16–33; TEMP 96–99.4; O2SAT 94–100
[2017-08-09] MEDS: SODIUM CHLORIDE 0.9% FLUSH 10 ML FLUSH IV FLUSH PRN ×2 (05:26→21:19)
[2017-08-09] MEDS: KETOROLAC TROMETHAMINE 30 MG/ML (IVP) VIAL IV PUSH SCH ×4 (05:26→23:33)
[2017-08-09 08:45] LABS: HEMATOCRIT 28.3 % (35.0-46.0); HEMOGLOBIN 9.3 GM/DL (11.6-15.3); MEAN CELL VOLUME 105.9 FL (80.0-100.0); MEAN CORPUSCULAR HEMOGLOBIN 34.7 PG (27.0-34.0); MEAN CORPUSCULAR HGB CONC 32.7 % (32.0-36.0); MEAN PLATELET VOLUME 8.4 FL (7.0-11.0); PLATELET COUNT 254 TH/MM3 (150-450); RED BLOOD COUNT 2.68 MIL/MM3 (4.00-5.30); WHITE BLOOD COUNT 15.1 TH/MM3 (4.0-11.0)
[2017-08-09] MEDS: SPIRONOLACTONE 25 MG TAB PO SCH (09:00)
[2017-08-09] MEDS: CHOLESTYRAMINE 4 GM PACKET PO SCH (09:00)
[2017-08-09 09:18] LABS: INTERNATIONAL NORMALIZED RATIO 1.5 RATIO; PROTHROMBIN TIME - PATIENT 15.5 SEC (9.8-11.6)
[2017-08-09 09:43] LABS: BANDS 4 % (0-6); LYMPHOCYTES 12 % (9-44); METAMYELOCYTES 2 % (0-1); MONOCYTES 5 % (0-8); MYELOCYTES 1 % (0-0); NEUTROPHIL # MANUAL DIFF 12.5 TH/MM3 (1.8-7.7); POLYS (SEG NEUTROPHILS) 76 % (16-70)
[2017-08-09 09:47] LABS: TOXIC GRANULATION 1+ (NORMAL)
[2017-08-09 09:53] LABS: CALCIUM 8.5 MG/DL (8.5-10.1)
[2017-08-09 09:55] LABS: CHLORIDE 107 MEQ/L (98-107); SODIUM (NA) 142 MEQ/L (136-145)
[2017-08-09 09:57] LABS: ALBUMIN 2.2 GM/DL (3.4-5.0); GLUCOSE,RANDOM 83 MG/DL (74-106)
[2017-08-09 09:58] LABS: BICARBONATE 24.7 MEQ/L (21.0-32.0); BLOOD UREA NITROGEN 20 MG/DL (7-18)
[2017-08-09] MEDS ORDERED: PHYTONADIONE 10 MG/ML VIAL SQ ONE (10:00)
[2017-08-09 10:01] LABS: AST (GOT) 218 U/L (15-37); CREATININE 0.84 MG/DL (0.50-1.00); GLOMERULAR FILTRATION RATE 78 ML/MIN (>89)
[2017-08-09 10:03] LABS: TOTAL BILIRUBIN ADULT 21.5 MG/DL (0.2-1.0); TOTAL PROTEIN 5.6 GM/DL (6.4-8.2)
[2017-08-09 10:04] LABS: ALKALINE PHOSPHATASE 257 U/L (45-117)
[2017-08-09 10:08] LABS: ALT (GPT) 40 U/L (10-53)
--- NOTE | 2017-08-09 10:51 | PD.CONS ---
cc: Yeyo Mitchell MD HPI Service General Surgery Consult Requested By Dr. Marmolejo Reason for Consult Abnormal gallbladder Primary Care Physician Missy Valadez M.D. History of Present Illness This is a 32 year old female with a past medical history of celiac disease and pituitary adenoma who presented to the ED with complains of abdominal pain and yellowing of the skin. She reports abdominal pain on and off since December 2016. The patient does report nausea and vomiting associated with the pain. A gallbladder ultrasound was completed which shows subacute hepatitis with a moderately distended gallbladder and common bile duct which is concerning for a common bile duct obstruction. An MRCP was completed which shows a normal common bile duct and a moderately distended gallbladder. A HIDA scan was also completed which shows some activity in the gallbladder. A CT abdomen/pelvis was also completed which shows hepatocellular disease with a distended gallbladder and minimal pericholecystic fluid. She does have a mildly elevated WBC. Her total bilirubin continues to rise and is 19.7. Her other liver enzymes remain elevated. She does reports some improvement in the abdominal pain. She is scheduled for a CT guided liver biopsy today. A General Surgery consultation has been requested for evaluation of possible gallbladder dysfunction. Review of Systems Constitutional: COMPLAINS OF: Weight gain, DENIES: Fatigue, Change in appetite Endocrine: DENIES: Polydipsia, Polyuria, Polyphagia Eyes: DENIES: Diplopia, Eye inflammation Ears, nose, mouth, throat: DENIES: Hearing loss Respiratory: DENIES: Cough Cardiovascular: COMPLAINS OF: Dyspnea on Exertion, Lower Extremity Edema Gastrointestinal: COMPLAINS OF: Abdominal pain, Diarrhea, Nausea, Vomiting Genitourinary: DENIES: Urinary incontinence Musculoskeletal: DENIES: Joint pain Integumentary: COMPLAINS OF: Abnormal pigmentation Hematologic/lymphatic: DENIES: Bruising Immunologic/allergic: DENIES: Eczema Neurologic: DENIES: Headache, Localized weakness, Paresthesias Psychiatric: DENIES: Confusion, Mood changes, Depression Past Family Social History Past Medical History Pituitary adenoma Asthma Celiac disease Past Surgical History Tonsillectomy Reported Medications None at home Allergies: Coded Allergies: No Known Allergies (Unverified , 08/04/17) Active Ordered Medications Current Medications Medications (Trade) Dose Ordered Sig/Akua Route Start Time Stop Time Status Last Admin (NS Flush) 2 ml UNSCH PRN IV FLUSH 08/01/17 16:00 08/09/17 05:26 (Questran 4 Gm Pkt) 4 gm DAILY PO 08/02/17 09:00 08/08/17 08:48 (Zofran Inj) 4 mg Q6H PRN IV PUSH 08/02/17 08:45 08/04/17 08:20 (K-Lyte Cl Eff) 25 meq DAILY NG 08/03/17 09:00 08/08/17 08:48 (Morphine Inj) 2 mg Q4H PRN IV PUSH 08/03/17 10:00 08/08/17 22:45 (Folate) 1 mg DAILY PO 08/04/17 09:00 08/08/17 08:48 (Benadryl) 50 mg HS PRN PO 08/04/17 14:00 08/08/17 22:35 (Toradol Inj) 15 mg Q6HR IV PUSH 08/05/17 12:00 08/10/17 11:59 08/09/17 05:26 (Vitamin B1) 100 mg DAILY PO 08/06/17 09:00 08/08/17 08:48 (Mag-Al Plus Susp Liq) 30 ml Q6H PRN PO 08/06/17 13:15 08/06/17 14:41 (Protonix Inj) 40 mg DAILY IV PUSH 08/07/17 09:00 08/08/17 08:49 (Aldactone) 25 mg DAILY PO 08/07/17 09:00 08/07/17 08:20 (Lasix Inj) 40 mg BID@18 IV PUSH 08/07/17 18:00 Future Hold 08/07/17 18:17 (Orapred Odt) 40 mg DAILY PO 08/08/17 09:00 08/08/17 08:47 Family History Noncontributory Social History + tobacco use--- 2-4 cigarettes daily + ETOH use--- 7-10 shots of liquor on /Wednesday/Wednesday/Wednesday; no ETOH use on Wednesday/Wednesday/Wednesday Denies any illicit drug use Lives in [place]; no children; she is unemployed. Physical Exam Vital Signs Vital Signs Date Time Temp Pulse Resp B/P (MAP) Pulse Ox O2 Delivery O2 Flow Rate FiO2 08/09/17 08:11 97.8 95 16 82/52 (62) 98 08/09/17 05:26 78/53 (61) 08/09/17 03:34 89 76/56 (63) 08/09/17 01:58 96.0 84 20 85/62 (70) 100 08/08/17 22:39 88/65 (73) 08/08/17 22:38 96.0 84 20 85/62 (70) 100 08/08/17 17:54 18 08/08/17 17:54 18 08/08/17 16:00 97.6 93 16 90/50 (63) 93 08/08/17 12:00 97.5 86 16 88/60 (69) 94 Physical Exam GENERAL: 32 year old female resting in bed in no acute distress. SKIN: Warm and dry. Jaundice skin. HEAD: Atraumatic. Normocephalic. EYES: Pupils equal and round. Jaundice sclera. ENT: No nasal bleeding or discharge. Mucous membranes pink and moist. NECK: Trachea midline. CARDIOVASCULAR: Regular rate and rhythm. RESPIRATORY: No accessory muscle use. Clear to auscultation. Breath sounds equal bilaterally. GASTROINTESTINAL: Abdomen distended; RUQ and LUQ tenderness with palpation. No visible scars or hernias. MUSCULOSKELETAL: Extremities without clubbing or cyanosis. No obvious deformities. + edema in bilateral legs. NEUROLOGICAL: Awake and alert. No obvious cranial nerve deficits. Motor grossly within normal limits. Five out of 5 muscle strength in the arms and legs. Normal speech. PSYCHIATRIC: Appropriate mood and affect; insight and judgment normal. Laboratory Laboratory Tests Test 08/08/17 11:38 08/09/17 08:00 Prothrombin Time 17.0 15.5 Prothromb Time International Ratio 1.7 1.5 White Blood Count 15.1 Red Blood Count 2.68 Hemoglobin 9.3 Hematocrit 28.3 Mean Corpuscular Volume 105.9 Mean Corpuscular Hemoglobin 34.7 Mean Corpuscular Hemoglobin Concent 32.7 Red Cell Distribution Width 24.0 Platelet Count 254 Mean Platelet Volume 8.4 CBC Comment DIFF FINAL Differential Total Cells Counted 100 Neutrophils % (Manual) 76 Band Neutrophils % 4 Lymphocytes % 12 Monocytes % 5 Neutrophils # (Manual) 12.5 Metamyelocytes 2 Myelocytes 1 Differential Comment FINAL DIFF MANUAL Toxic Granulation 1+ Platelet Estimate NORMAL Platelet Morphology Comment NORMAL Blood Urea Nitrogen 20 Creatinine 0.84 Random Glucose 83 Total Protein 5.6 Albumin 2.2 Calcium Level 8.5 Alkaline Phosphatase 257 Aspartate Amino Transf (AST/SGOT) 218 Alanine Aminotransferase (ALT/SGPT) 40 Total Bilirubin 21.5 Sodium Level 142 Potassium Level 3.8 Chloride Level 107 Carbon Dioxide Level 24.7 Anion Gap 10 Estimat Glomerular Filtration Rate 78 Date/Time Source Procedure Growth Status 08/01/17 18:05 Blood Peripheral Aerobic Blood Culture - Final NO GROWTH IN 5 DAYS Complete 08/01/17 18:05 Blood Peripheral Anaerobic Blood Culture - Final NO GROWTH IN 5 DAYS Complete 08/01/17 16:50 Urine Clean Catch Urine Culture - Final 10-50,000 CFU/ML MIXED GRAM POSITIVE ... Complete Result Diagram: 08/13/1741908/13/17419 Assessment and Plan Assessment and Plan 32 year old female with ETOH abuse; elevated liver enzymes. -Patient going to CT guided biopsy today -Low suspicion of any gallbladder dysfunction -Hepatic dysfunction likely related to chronic alcohol abuse -Diet as tolerated -No acute General Surgery issues at this time; Please call if any questions Discussed Condition With Dr. Mitchell Hays Attending Statement patient seen at bedside abdominal pain likely liver etiology related await bx results will follow Attestation The exam, history, and the medical decision-making described in the above note were completed with the assistance of the mid-level provider. I reviewed and agree with the findings presented. I attest that I had a [id number] encounter with the patient on the same day, and personally performed and documented my assessment and findings in the medical record. Wilma Bryan STRUCTURAL IRON ERECTOR/Senior Software Development Manager STRUCTURAL IRON ERECTOR August 09, 2017 10:51 Yeyo Mitchell MD August 14, 2017 06:03
[2017-08-09] MEDS: POTASSIUM CHLORIDE 25 MEQ EFFERVESCENT TAB NG SCH (11:09)
[2017-08-09] MEDS: THIAMINE HCL 100 MG TAB PO SCH (11:10)
[2017-08-09] MEDS: FOLIC ACID 1 MG TAB PO SCH (11:10)
[2017-08-09] MEDS: prednisoLONE 10 MG ODT TAB PO SCH (11:11)
[2017-08-09] MEDS: PANTOPRAZOLE SODIUM 40 MG VIAL IV PUSH SCH (11:13)
--- NOTE | 2017-08-09 11:53 | HHI.PR ---
Subjective Remarks Follow-up end-stage liver disease. Patient seen and examined, states she feels much improved overnight. Swelling is diminished with use of Lasix. Abdominal distention has improved. Pain is controlled on current regimen. Eating well with no vomiting, or abdominal pain. Ambulating with no weakness. Patient to go for liver biopsy this morning. Objective Vitals Vital Signs Date Time Temp Pulse Resp B/P (MAP) Pulse Ox O2 Delivery O2 Flow Rate FiO2 08/09/17 08:11 97.8 95 16 82/52 (62) 98 08/09/17 05:26 78/53 (61) 08/09/17 03:34 89 76/56 (63) 08/09/17 01:58 96.0 84 20 85/62 (70) 100 08/08/17 22:39 88/65 (73) 08/08/17 22:38 96.0 84 20 85/62 (70) 100 08/08/17 17:54 18 08/08/17 17:54 18 08/08/17 16:00 97.6 93 16 90/50 (63) 93 08/08/17 12:00 97.5 86 16 88/60 (69) 94 I/O 08/08/17 08/08/17 08/08/17 08/09/17 08/09/17 08/09/17 06:59 14:59 22:59 06:59 14:59 22:59 Intake Total 60 ml 640 ml Balance 60 ml 640 ml Intake Oral 60 ml 640 ml # Voids 2 4 2 # Bowel Movements 1 2 Result Diagram: 08/09/17 0800 08/09/17 0800 Imaging Last Impressions Head CT 08/07/17 0000 Signed Impressions: Service Date/Time: Monday, August 07, 2017 14:52 - CONCLUSION: No acute disease. Giacomo Holguin MD Abdomen/Pelvis CT 08/07/17 0000 Signed Impressions: Service Date/Time: Monday, August 07, 2017 14:56 - CONCLUSION: 1. Marked hepatomegaly. 2. Diffuse heterogeneity of the liver parenchyma suggestive of diffuse hepatocellular disease, fatty infiltration or possible hepatitis. 3. Marked splenomegaly. 4. Distended gallbladder with minimal pericholecystic fluid. 5. Small amount of ascites within the abdomen and pelvis. 6. Small right pleural effusion with adjacent compressive atelectasis. Giacomo Holguin MD Hepatobiliary Scan Nuclear Medicine 08/02/17 0000 Signed Impressions: Service Date/Time: Wednesday, August 02, 2017 13:49 - CONCLUSION: 1. Extremely poor hepatocyte function with persistent blood pool activity and no significant excretion from the parenchyma during 96 minutes of continuous observation. 2. Due to the hepatocellular dysfunction, evaluation of the gallbladder cannot be performed. Den Juarez MD ADDENDUM: COMPARISON: MRCP W/O CONTRAST, August 01, 2017, 19:59. The patient returned for 18 hour delayed images. Much of the activity is still within the liver consistent with poor hepatic function. There does appear to be some activity seen in the gallbladder. Zaheer Oates MD Gall Bladder Ultrasound 08/01/17 0000 Signed Impressions: Service Date/Time: Tuesday, August 01, 2017 17:01 - CONCLUSION: 1. Hepatomegaly with diffusely echogenic hepatic parenchyma. Diminished hepatofugal flow in the portal vein. Overall findings may reflect subacute hepatitis versus profound hepatic steatosis versus medical liver disease. 2. Moderately distended gallbladder and common bile duct. Findings are concerning for acute distal CBD obstruction. Consider MRCP or ERCP examination for further evaluation. 3. Gallbladder sludge with mild diffuse gallbladder wall prominence. These findings are routinely seen in patients with chronic liver disease and significantly limit overall sonographic sensitivity for acute cholecystitis. Thompson Mcguire MD Cholangiopancreatography MRI 08/01/17 0000 Signed Impressions: Service Date/Time: Tuesday, August 01, 2017 19:59 - CONCLUSION: 1. Common bile duct is normal in caliber without focal intraductal abnormality. 2. Moderate gallbladder distention with trace pericholecystic fluid. This does raise the possibility for acute cholecystitis in the appropriate clinical setting. Consider HIDA scan to document cystic duct patency if there is persistent significant clinical concern. 3. Diffuse hepatomegaly similar to ultrasound exam. Again, differential considerations include profound hepatic steatosis versus medical liver disease versus subacute hepatitis given findings of diminished hepatopedal flow on ultrasound. Thompson Mcguire MD Objective Remarks GENERAL: Well-developed, well-nourished patient in NAD. SKIN: Warm and dry. No rash. Jaundiced. HEAD: Normocephalic. Atraumatic. EYES: Pupils equal and round. No scleral icterus. No injection or drainage. ENT: No nasal bleeding or discharge. Mucous membranes pink and moist. NECK: Supple. Trachea midline. CARDIOVASCULAR: Regular rate and rhythm. S1, S2 noted. No murmur appreciated. RESPIRATORY: No accessory muscle use. Clear to auscultation. Breath sounds equal bilaterally. GASTROINTESTINAL: Abdomen soft, nondistended. Normoactive bowel sounds x4. Mildly painful to palpation MUSCULOSKELETAL: No obvious deformities. Extremities without clubbing, cyanosis , or edema. NEUROLOGICAL: Awake and alert. No obvious cranial nerve deficits. Motor grossly within normal limits. 5/5 muscle strength in bilateral upper and lower extremities. Normal speech. PSYCHIATRIC: Appropriate mood and affect; insight and judgment normal. 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 Resolving. Anemia suspect secondary to acute blood loss. Resolved. Transaminitis and coagulopathy suspect secondary to above Asymptomatic hypotension suspect secondary to above - MRCP which was ordered is unremarkable for any intraductal obstruction - HIDA scan reviewed showing extremely poor hepatocellular function persistent blood pool activity. - Avoid Tylenol, pain control with morphine IV and oxycodone. - Continue Cipro and Flagyl IV antibiotics. Will DC, finished course. - Octreotide continued given history of heavy alcohol use. Bleeding stopped. DCd. Protonix IV twice daily. - Hemoglobin 6.4/hematocrit 19.6 patient is status post 2 units PRBC. CBC stable today. Continue to monitor. Monitor for any bleeding. - Colonoscopy done by gastroenterology, showing some AVMs and hemorrhoids, cauterized. ANTONINO screen negative. Hepatitis panel negative. Will await further recommendations. Possible liver biopsy. - CIWA protocol. Given folic acid and thiamine. Monitor for any withdrawals. Seizure precautions. - Total bilirubin worsening. GI following and appreciate input and recommendations. - Albumin given. Several doses of Lasix previously given with good response although still hypotensive. Spirolactone added, with parameters ordered. - Patient's Maddrey's Discriminant Function score is 33.5. Prednisone started daily. - Patient to undergo liver biopsy today. Hypokalemia. Resolved. 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 - Monitor cardiac telemetry. Follow BMP. DVT prophylaxis: SCDs. Patient does ambulate. Will hold chemical prophylaxis for now for GI bleed. Katia Be August 09, 2017 11:53
[2017-08-09] MEDS ORDERED: LIDOCAINE 1%/EPINEPHrine 1:100,000 SOLN 30 ML VIAL OTHER ONE (12:00)
[2017-08-09] MEDS ORDERED: MIDAZOLAM HCL 2 MG/2 ML VIAL IV ONE (12:00)
[2017-08-09 12:10] LABS: INTERNATIONAL NORMALIZED RATIO 1.5 RATIO; PROTHROMBIN TIME - PATIENT 14.8 SEC (9.8-11.6)
--- NOTE | 2017-08-09 12:19 | PD.RAD ---
Post CT Procedure Prog Note Pre Procedure Diagnosis: (1) Transaminitis (2) Hyponatremia Post Procedure Diagnosis: (1) Transaminitis (2) Hyponatremia Procedure Date: August 09, 2017 Supervising Radiologist: Den Blanchard JR Anesthesia: Conscious Sedation Plan of Activity Patient to Unit: PACU Patient Condition: Good See PACS Report for procedural detail/treatment Biopsy Imaging Guidance: CT Biopsy Procedure: Liver Specimen: Core Biopsy Findings: Pt received Vit K prior to procedure. Additional risks of bleeding explained to pt prior to procedure. CT guided liver core sample taken. Good sample noted. No hemorrhage on post bx CT images. Jr. Santo,Den Pollack MD August 09, 2017 12:19
[2017-08-09] MEDS: MORPHINE SULFATE 4 MG/ML INJ IV PUSH PRN (12:20)
[2017-08-09] MEDS ORDERED: ALBUMIN 25% INJ 100 ML IV ONE (15:00)
[2017-08-09] MEDS: URSODIOL 300 MG CAP PO SCH (21:19)
[2017-08-09] MEDS: diphenhydrAMINE HCL 50 MG CAP PO PRN (23:33)
[2017-08-10] VITALS (15 sets, daily range): BP systolic 76–90; BP diastolic 45–62; PULSE 78–101; RESP 16–33; TEMP 98.3–98.7; O2SAT 93–99
[2017-08-10 05:24] LABS: ALBUMIN 2.2 GM/DL (3.4-5.0)
[2017-08-10 05:27] LABS: DIRECT BILIRUBIN ADULT 15.5 MG/DL (0.0-0.2)
[2017-08-10 05:31] LABS: INDIRECT BILIRUBIN 3.9 MG/DL (0.0-0.8); TOTAL BILIRUBIN ADULT 19.4 MG/DL (0.2-1.0); TOTAL PROTEIN 5.2 GM/DL (6.4-8.2)
[2017-08-10] MEDS: KETOROLAC TROMETHAMINE 30 MG/ML (IVP) VIAL IV PUSH SCH (06:15)
[2017-08-10] MEDS: POTASSIUM CHLORIDE 25 MEQ EFFERVESCENT TAB NG SCH (09:30)
[2017-08-10] MEDS: FOLIC ACID 1 MG TAB PO SCH (09:30)
[2017-08-10] MEDS: PANTOPRAZOLE SODIUM 40 MG VIAL IV PUSH SCH (09:30)
[2017-08-10] MEDS: SPIRONOLACTONE 25 MG TAB PO SCH (09:30)
[2017-08-10] MEDS: URSODIOL 300 MG CAP PO SCH ×2 (09:30→20:00)
[2017-08-10] MEDS: CHOLESTYRAMINE 4 GM PACKET PO SCH (09:31)
[2017-08-10] MEDS: THIAMINE HCL 100 MG TAB PO SCH (09:31)
--- NOTE | 2017-08-10 12:47 | HHI.PR ---
cc: Yeyo Mitchell MD Subjective Subjective Notes still with hypotension, HH stable, c/o abd pain, tolerating diet Objective Vitals/I&O Vital Signs Date Time Temp Pulse Resp B/P (MAP) Pulse Ox O2 Delivery O2 Flow Rate FiO2 08/10/17 11:00 94 33 76/45 (55) 97 08/10/17 08:00 98.3 Labs Laboratory Tests Test 08/10/17 04:20 Total Bilirubin 19.4 Direct Bilirubin 15.5 Indirect Bilirubin 3.9 Aspartate Amino Transf (AST/SGOT) 195 Alanine Aminotransferase (ALT/SGPT) 41 Alkaline Phosphatase 249 Total Protein 5.2 Albumin 2.2 Date/Time Source Procedure Growth Status 08/01/17 18:05 Blood Peripheral Aerobic Blood Culture - Final NO GROWTH IN 5 DAYS Complete 08/01/17 18:05 Blood Peripheral Anaerobic Blood Culture - Final NO GROWTH IN 5 DAYS Complete 08/01/17 16:50 Urine Clean Catch Urine Culture - Final 10-50,000 CFU/ML MIXED GRAM POSITIVE ... Complete Lungs: Clear Abdomen: Other (RUQ pain diffuse abd pain, no rebound) A/P Assessment and Plan liver failure with jaundice,hh stable, unlikely gallbladder etiology PLAN Await liver bx reg diet avoid hepatotoxic agents non operative mgnt, will follow peripherally Yeyo Mitchell MD August 10, 2017 12:47
[2017-08-10] MEDS: prednisoLONE 10 MG ODT TAB PO SCH (15:55)
--- NOTE | 2017-08-10 17:41 | HHI.PR ---
Subjective Remarks Patient seen and examined today for follow-up on transaminitis, abdominal pain, alcohol abuse, hypotension. Patient remains hypotensive with map only ranging from 55-68 over the last 24 hours. Patient states that she is having increased pain in her right abdomen from where she had the liver biopsy. She has not required any pain medication in over 24 hours because of low blood pressure. Patient with obvious shock with unknown etiology. Patient with increased edema and legs and abdominal distention. However intravascularly depleted. Third spacing. Patient remains afebrile Objective Vitals Vital Signs Date Time Temp Pulse Resp B/P (MAP) Pulse Ox O2 Delivery O2 Flow Rate FiO2 08/10/17 16:00 98 23 79/51 (60) 99 08/10/17 15:00 100 08/10/17 13:00 96 21 84/59 (67) 97 08/10/17 12:00 96 31 80/53 (62) 98 08/10/17 11:00 94 33 76/45 (55) 97 08/10/17 09:00 88 08/10/17 09:00 88 17 85/52 (63) 95 08/10/17 08:00 86 08/10/17 08:00 98.3 86 16 82/53 (63) 93 08/10/17 04:00 98.5 78 20 83/54 (64) 94 08/10/17 00:00 98.5 88 20 83/52 (62) 95 08/09/17 23:00 86 08/09/17 20:00 91 08/09/17 20:00 98.1 91 20 84/60 (68) 96 08/09/17 18:00 98 33 94/62 (73) 95 I/O 08/09/17 08/09/17 08/09/17 08/10/17 08/10/17 08/10/17 07:00 15:00 23:00 07:00 15:00 23:00 Intake Total 950 ml 480 ml Balance 950 ml 480 ml Intake Oral 450 ml 480 ml IV Total 500 ml # Voids 2 2 Result Diagram: 08/09/17 0800 08/09/17 08 Objective Remarks GENERAL: Well-developed, well-nourished, in no acute distress. alert and orientated HEENT: Head is normocephalic without any lesions or masses noted. Facial features are symmetric. Eyes: Extraocular muscles are intact. Conjunctivae are icteric. NECK: Supple without any masses. Trachea midline no deviation. No JVD, no bruits are appreciated CARDIAC: Regular rhythm, regular rate. S1/S2 are heard. No murmurs gallops or rubs. LUNGS: Clear to auscultation bilaterally. No wheeze, rhonchi or rales. No use of accessory muscles on inspiration or expiration. ABDOMEN: Soft, tenderness noted in the right upper quadrant. Mildly distended. Bowel sounds heard in all 4 quadrants. No organomegaly or masses. Negative rebound, negative guarding EXTREMITIES: Bilateral lower extremity nonpitting edema, pulses are equal bilaterally. No cyanosis or clubbing NEUROLOGY: Mood and affect appear appropriate. Cranial nerves II through XII grossly intact. 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 -Avoid Tylenol, pain control with ibuprofen, morphine IV and oxycodone, and blood pressure permits -Status post Cipro and Flagyl IV antibiotics. -Status post Octreotide -Continue Protonix 40 mg twice daily, changed to p.o. -Status post CIWA protocol. Patient counseled on cessation -Continue folic acid and thiamine. -Bilirubin improving today, improvement of liver enzymes, continue to monitor daily total bilirubin worsening. GI following and appreciate input and recommendations. -Status post liver biopsy -General surgery evaluated the patient who indicated nonoperative management. Anemia suspect secondary to acute blood loss. Resolved. -Status post transfusion 2 units of packed red blood cells -GI consulted for recommendations -Status post EGD with duodenitis, gastritis, irregular Z line. 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 Internal hemorrhoids, external hemorrhoids Hypokalemia. Resolved. 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 -Magnesium within normal limits, DVT prophylaxis: -Sequential compression devices, patient is not ambulating -Continue to hold hold chemical prophylaxis for now secondary to GI bleed. Discharge Planning Discharge planning in 48-72 hours depending on patient's response to treatment, blood pressure improvement, liver enzymes improvement. Chu St August 10, 2017 17:41
[2017-08-10] MEDS: ALBUMIN 5% INJ 500 ML IV SCH (17:49)
[2017-08-10] MEDS: SODIUM CHLORIDE 0.9% FLUSH 10 ML FLUSH IV FLUSH PRN (19:59)
[2017-08-10] MEDS: PANTOPRAZOLE SOD 40 MG DELAYED RELEASE TAB PO SCH (20:00)
[2017-08-10] MEDS: diphenhydrAMINE HCL 50 MG CAP PO PRN (21:17)
[2017-08-10] MEDS: IBUPROFEN 600 MG TAB PO PRN (23:37)
[2017-08-11] VITALS (37 sets, daily range): BP systolic 77–103; BP diastolic 53–74; PULSE 70–94; RESP 14–32; TEMP 97.7–98.8; O2SAT 92–98
[2017-08-11 05:39] LABS: HEMOGLOBIN 8.4 GM/DL (11.6-15.3); MEAN CELL VOLUME 106.3 FL (80.0-100.0); MEAN CORPUSCULAR HEMOGLOBIN 35.5 PG (27.0-34.0); MEAN CORPUSCULAR HGB CONC 33.4 % (32.0-36.0); MEAN PLATELET VOLUME 8.3 FL (7.0-11.0); PLATELET COUNT 258 TH/MM3 (150-450); RED BLOOD COUNT 2.35 MIL/MM3 (4.00-5.30); RED CELL DISTRIBUTION WIDTH 23.1 % (11.6-17.2); WHITE BLOOD COUNT 13.5 TH/MM3 (4.0-11.0)
[2017-08-11 05:47] LABS: CHLORIDE 110 MEQ/L (98-107); SODIUM (NA) 142 MEQ/L (136-145)
[2017-08-11 05:51] LABS: ALBUMIN 2.4 GM/DL (3.4-5.0); BICARBONATE 22.3 MEQ/L (21.0-32.0); CALCIUM 8.3 MG/DL (8.5-10.1)
[2017-08-11 05:52] LABS: BLOOD UREA NITROGEN 17 MG/DL (7-18); GLUCOSE,RANDOM 100 MG/DL (74-106)
[2017-08-11 05:55] LABS: ALT (GPT) 38 U/L (10-53); AST (GOT) 148 U/L (15-37); CREATININE 0.66 MG/DL (0.50-1.00); GLOMERULAR FILTRATION RATE 103 ML/MIN (>89)
[2017-08-11 05:56] LABS: TOTAL BILIRUBIN ADULT 18.4 MG/DL (0.2-1.0); TOTAL PROTEIN 5.4 GM/DL (6.4-8.2)
[2017-08-11 05:58] LABS: ALKALINE PHOSPHATASE 234 U/L (45-117)
[2017-08-11 06:02] LABS: BANDS 9 % (0-6); LYMPHOCYTES 1 % (9-44); METAMYELOCYTES 1 % (0-1); MONOCYTES 5 % (0-8); NEUTROPHIL # MANUAL DIFF 12.7 TH/MM3 (1.8-7.7); OVALOCYTES 1+ (NORMAL); POLYS (SEG NEUTROPHILS) 84 % (16-70); TARGET CELLS 1+ (NORMAL); TEARDROP RBCS 1+ (NORMAL)
[2017-08-11] MEDS: ALBUMIN 5% INJ 500 ML IV SCH (06:09)
[2017-08-11] MEDS: THIAMINE HCL 100 MG TAB PO SCH (09:03)
[2017-08-11] MEDS: URSODIOL 300 MG CAP PO SCH ×2 (09:03→20:06)
[2017-08-11] MEDS: PANTOPRAZOLE SOD 40 MG DELAYED RELEASE TAB PO SCH ×2 (09:03→20:06)
[2017-08-11] MEDS: SPIRONOLACTONE 25 MG TAB PO SCH (09:03)
[2017-08-11] MEDS: POTASSIUM CHLORIDE 25 MEQ EFFERVESCENT TAB NG SCH (09:04)
[2017-08-11] MEDS: CHOLESTYRAMINE 4 GM PACKET PO SCH (09:04)
[2017-08-11] MEDS: MIDODRINE 5 MG TAB PO SCH ×3 (09:04→16:56)
[2017-08-11] MEDS: prednisoLONE 10 MG ODT TAB PO SCH (09:04)
[2017-08-11] MEDS: FOLIC ACID 1 MG TAB PO SCH (09:04)
[2017-08-11] MEDS: IBUPROFEN 600 MG TAB PO PRN ×2 (09:11→16:53)
--- NOTE | 2017-08-11 13:10 | HHI.PR ---
Subjective Remarks Patient seen and examined today for follow-up on transaminitis, abdominal pain, alcohol abuse, hypotension. Patient blood pressure without any significant change despite albumin infusion. Patient started on midodrine today we will continue monitor blood pressure. Patient states that her abdominal pain is improving. She is able to take less pain medication and going longer time between medications. Patient denies any new complaints or problems. Objective Vitals Vital Signs Date Time Temp Pulse Resp B/P (MAP) Pulse Ox O2 Delivery O2 Flow Rate FiO2 08/11/17 12:09 98.2 82 26 84/57 (66) 94 08/11/17 12:00 80 08/11/17 11:09 78 26 90/59 (69) 96 08/11/17 10:44 84 22 83/63 (70) 96 08/11/17 10:00 84 08/11/17 09:09 86 28 86/56 (66) 96 08/11/17 08:09 80 16 77/54 (62) 93 08/11/17 08:00 82 08/11/17 07:08 98.8 82 15 87/55 (66) 95 08/11/17 06:08 78 14 86/55 (65) 94 08/11/17 06:00 79 08/11/17 05:08 82 17 84/54 (64) 93 08/11/17 04:08 98.3 82 21 82/57 (65) 93 08/11/17 04:00 82 08/11/17 03:08 84 15 84/53 (63) 94 08/11/17 02:08 88 17 90/55 (67) 93 08/11/17 02:00 88 08/11/17 01:08 94 20 98/54 (69) 94 08/11/17 00:08 98.4 94 17 94/58 (70) 92 08/11/17 00:00 94 08/10/17 23:08 94 20 83/52 (62) 93 08/10/17 22:08 100 26 85/62 (70) 94 08/10/17 22:00 100 08/10/17 21:13 94 22 90/61 (71) 93 08/10/17 20:00 101 08/10/17 20:00 98.7 98 22 89/62 (71) 97 08/10/17 19:00 96 29 88/52 (64) 96 08/10/17 16:00 98 23 79/51 (60) 99 08/10/17 15:00 100 I/O 08/10/17 08/10/17 08/10/17 08/11/17 08/11/17 08/11/17 07:00 15:00 23:00 07:00 15:00 23:00 Intake Total 480 ml 1320 ml 480 ml Balance 480 ml 1320 ml 480 ml Intake Oral 480 ml 720 ml 480 ml IV Total 600 ml # Voids 2 4 2 # Bowel Movements 3 0 Result Diagram: 08/11/17 0415 08/11/17414 Objective Remarks GENERAL: Well-developed, well-nourished, in no acute distress. alert and orientated HEENT: Head is normocephalic without any lesions or masses noted. Facial features are symmetric. Eyes: Extraocular muscles are intact. Conjunctivae are icteric. NECK: Supple without any masses. Trachea midline no deviation. No JVD, no bruits are appreciated CARDIAC: Regular rhythm, regular rate. S1/S2 are heard. No murmurs gallops or rubs. LUNGS: Clear to auscultation bilaterally. No wheeze, rhonchi or rales. No use of accessory muscles on inspiration or expiration. ABDOMEN: Soft, abdominal tenderness has improved.. Mildly distended. Bowel sounds heard in all 4 quadrants. No organomegaly or masses. Negative rebound, negative guarding EXTREMITIES: Bilateral lower extremity nonpitting edema, pulses are equal bilaterally. No cyanosis or clubbing, skin is jaundice NEUROLOGY: Mood and affect appear appropriate. Cranial nerves II through XII grossly intact. 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 -Avoid Tylenol, pain control with ibuprofen, morphine IV and oxycodone if blood pressure permits -Status post Cipro and Flagyl IV antibiotics. -Status post Octreotide -Continue Protonix 40 mg p.o. twice daily -Status post CIWA protocol. Patient counseled on cessation -Continue folic acid and thiamine. -Bilirubin, liver enzymes continue to improve. -GI following and appreciate input and recommendations. -Status post liver biopsy, awaiting results -General surgery evaluated the patient who indicated nonoperative management. Anemia suspect secondary to acute blood loss. Resolved. -Status post transfusion 2 units of packed red blood cells -GI consulted for recommendations -Status post EGD with duodenitis, gastritis, irregular Z line. 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 Internal hemorrhoids, external hemorrhoids Hypokalemia. Resolved. 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 -Magnesium within normal limits, DVT prophylaxis: -Sequential compression devices, patient is not ambulating -Continue to hold hold chemical prophylaxis for now secondary to GI bleed. Discharge Planning Discharge planning in 24-48 hours depending on patient's response to treatment, blood pressure improvement, liver enzymes improvement. Chu St August 11, 2017 13:10
[2017-08-11] MEDS: diphenhydrAMINE HCL 50 MG CAP PO PRN (21:35)
[2017-08-12] VITALS (37 sets, daily range): BP systolic 81–100; BP diastolic 48–74; PULSE 62–93; RESP 15–37; TEMP 97.8–98.7; O2SAT 93–98
[2017-08-12] MEDS: IBUPROFEN 600 MG TAB PO PRN ×3 (02:06→17:17)
[2017-08-12 05:49] LABS: CHLORIDE 109 MEQ/L (98-107); SODIUM (NA) 140 MEQ/L (136-145)
[2017-08-12 05:54] LABS: CALCIUM 8.5 MG/DL (8.5-10.1)
[2017-08-12 05:55] LABS: ALBUMIN 2.3 GM/DL (3.4-5.0); BICARBONATE 21.2 MEQ/L (21.0-32.0); BLOOD UREA NITROGEN 16 MG/DL (7-18); GLUCOSE,RANDOM 95 MG/DL (74-106)
[2017-08-12 05:58] LABS: ALT (GPT) 42 U/L (10-53); AST (GOT) 159 U/L (15-37); CREATININE 0.74 MG/DL (0.50-1.00); GLOMERULAR FILTRATION RATE 90 ML/MIN (>89); HEMATOCRIT 27.3 % (35.0-46.0); HEMOGLOBIN 8.9 GM/DL (11.6-15.3); MEAN CELL VOLUME 106.6 FL (80.0-100.0); MEAN CORPUSCULAR HGB CONC 32.8 % (32.0-36.0); MEAN PLATELET VOLUME 8.7 FL (7.0-11.0); PLATELET COUNT 302 TH/MM3 (150-450); RED BLOOD COUNT 2.56 MIL/MM3 (4.00-5.30); RED CELL DISTRIBUTION WIDTH 22.6 % (11.6-17.2); WHITE BLOOD COUNT 17.6 TH/MM3 (4.0-11.0)
[2017-08-12 06:24] LABS: BANDS 5 % (0-6); LYMPHOCYTES 7 % (9-44); MONOCYTES 2 % (0-8); POLYS (SEG NEUTROPHILS) 86 % (16-70)
[2017-08-12 06:25] LABS: STOMATOCYTES 2+ (NORMAL)
[2017-08-12] MEDS: MIDODRINE 5 MG TAB PO SCH ×3 (06:29→17:17)
[2017-08-12 06:39] LABS: ALKALINE PHOSPHATASE 239 U/L (45-117); TOTAL BILIRUBIN ADULT 15.9 MG/DL (0.2-1.0); TOTAL PROTEIN 5.4 GM/DL (6.4-8.2)
[2017-08-12] MEDS: SPIRONOLACTONE 25 MG TAB PO SCH (07:59)
[2017-08-12] MEDS: prednisoLONE 10 MG ODT TAB PO SCH (08:27)
[2017-08-12] MEDS: PANTOPRAZOLE SOD 40 MG DELAYED RELEASE TAB PO SCH ×2 (08:27→20:45)
[2017-08-12] MEDS: URSODIOL 300 MG CAP PO SCH ×2 (08:27→20:45)
[2017-08-12] MEDS: FOLIC ACID 1 MG TAB PO SCH (08:27)
[2017-08-12] MEDS: THIAMINE HCL 100 MG TAB PO SCH (08:27)
[2017-08-12] MEDS: CHOLESTYRAMINE 4 GM PACKET PO SCH (08:29)
[2017-08-12] MEDS: POTASSIUM CHLORIDE 25 MEQ EFFERVESCENT TAB NG SCH (08:29)
--- NOTE | 2017-08-12 10:47 | HHI.PR ---
Subjective Remarks Patient seen and examined today for follow-up on hepatitis, hypotension, abdominal pain. Patient's pain is improving on a daily basis. Her transaminitis is also improving. This was discussed with the patient and family at bedside. Biopsy result did return and I discussed the results with her concerning the alcohol liver disease and cholestasis. Patient was started on midodrine yesterday for blood pressure management appears to have improved minimally. When patient is out of bed her map is between 71 and 82. Patient is in good spirits. Patient will need outpatient follow-up. Patient blood pressure continues to stay stable possibly able to discharge tomorrow. This was all discussed with the patient and she is in agreement. Objective Vitals Vital Signs Date Time Temp Pulse Resp B/P (MAP) Pulse Ox O2 Delivery O2 Flow Rate FiO2 08/12/17 10:09 78 35 91/58 (69) 97 08/12/17 10:06 80 30 95/59 (71) 98 08/12/17 10:00 80 32 93/59 (70) 98 08/12/17 10:00 80 08/12/17 08:48 88 33 99/51 (67) 94 08/12/17 08:29 76 25 89/52 (64) 97 08/12/17 08:09 70 17 82/50 (61) 95 08/12/17 08:00 62 08/12/17 07:09 97.8 78 24 85/51 (62) 94 08/12/17 06:08 64 15 90/50 (63) 94 08/12/17 06:00 64 08/12/17 05:09 70 15 94 08/12/17 04:09 76 23 83/57 (66) 94 08/12/17 04:00 68 08/12/17 03:09 68 15 86/55 (65) 93 08/12/17 02:09 68 24 87/55 (66) 96 08/12/17 02:00 68 08/12/17 01:09 72 18 83/48 (60) 95 08/12/17 00:09 97.8 82 23 85/59 (68) 94 08/12/17 00:00 74 08/11/17 23:09 70 25 85/57 (66) 95 08/11/17 22:11 76 27 86/57 (67) 97 08/11/17 22:09 82 32 79/61 (67) 96 08/11/17 22:00 82 08/11/17 21:09 70 22 97/61 (73) 98 08/11/17 20:09 97.7 86 27 88/57 (67) 92 08/11/17 20:00 86 08/11/17 19:09 76 23 96 08/11/17 18:09 78 31 103/74 (84) 96 08/11/17 18:00 76 08/11/17 17:09 84 24 89/66 (74) 98 08/11/17 16:09 98.4 82 31 85/61 (69) 97 08/11/17 16:00 78 08/11/17 15:09 76 25 83/62 (69) 97 08/11/17 14:09 82 25 93/61 (72) 97 08/11/17 14:00 82 08/11/17 13:09 76 28 80/67 (71) 98 08/11/17 12:09 98.2 82 26 84/57 (66) 94 08/11/17 12:00 80 08/11/17 11:09 78 26 90/59 (69) 96 I/O 08/11/17 08/11/17 08/11/17 08/12/17 08/12/17 08/12/17 07:00 15:00 23:00 07:00 15:00 23:00 Intake Total 480 ml 480 ml 480 ml 500 ml Balance 480 ml 480 ml 480 ml 500 ml Intake Oral 480 ml 480 ml 480 ml IV Total 500 ml # Voids 2 4 2 # Bowel Movements 0 1 2 Result Diagram: 08/12/17 0449 08/12/17 0449 Objective Remarks GENERAL: Well-developed, well-nourished, in no acute distress. alert and orientated HEENT: Head is normocephalic without any lesions or masses noted. Facial features are symmetric. Eyes: Extraocular muscles are intact. Conjunctivae are icteric. NECK: Supple without any masses. Trachea midline no deviation. No JVD, no bruits are appreciated CARDIAC: Regular rhythm, regular rate. S1/S2 are heard. No murmurs gallops or rubs. LUNGS: Clear to auscultation bilaterally. No wheeze, rhonchi or rales. No use of accessory muscles on inspiration or expiration. ABDOMEN: Soft, abdominal tenderness has improved.. Mildly distended. Bowel sounds heard in all 4 quadrants. No organomegaly or masses. Negative rebound, negative guarding EXTREMITIES: Bilateral lower extremity nonpitting edema, pulses are equal bilaterally. No cyanosis or clubbing, skin is jaundice NEUROLOGY: Mood and affect appear appropriate. Cranial nerves II through XII grossly intact. 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 -Avoid Tylenol, pain control with ibuprofen, morphine IV and oxycodone if blood pressure permits -Status post Cipro and Flagyl IV antibiotics. -Status post Octreotide -Continue Protonix 40 mg p.o. twice daily -Status post CIWA protocol. Patient counseled on cessation -Continue folic acid and thiamine. -Bilirubin, liver enzymes continue to improve. -GI following and appreciate input and recommendations. Patient will need outpatient follow-up -Status post liver biopsy, indicated alcohol liver disease, cholestasis -General surgery evaluated the patient who indicated nonoperative management. Anemia suspect secondary to acute blood loss. Resolved. -Status post transfusion 2 units of packed red blood cells -GI consulted for recommendations -Status post EGD with duodenitis, gastritis, irregular Z line. 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 Internal hemorrhoids, external hemorrhoids Hypokalemia. Resolved. 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 -Magnesium within normal limits, DVT prophylaxis: -Sequential compression devices, patient is not ambulating -Continue to hold hold chemical prophylaxis for now secondary to GI bleed. Discharge Planning Anticipate discharge tomorrow if blood pressure remains stable. Chu [address] August 12, 2017 10:47
--- NOTE | 2017-08-12 19:09 | ECHRPT ---
Indication: Pleural effusion, not elsewhere classified CONCLUSIONS The left ventricular systolic function is normal with an estimated ejection fraction in the range of 55-60%. Wall thickness is normal. Normal left ventricular size. BP: / HR: Rhythm: Sinus MEASUREMENTS (Male / Female) Normal Values Technical Quality:Fair 2D ECHO LV Diastolic Diameter PLAX 4.7 cm 4.2 - 5.9 / 3.9 - 5.3 cm LV Systolic Diameter PLAX 3.5 cm IVS Diastolic Thickness 0.9 cm 0.6 - 1.0 / 0.6 - 0.9 cm LVPW Diastolic Thickness 0.9 cm 0.6 - 1.0 / 0.6 - 0.9 cm LV Relative Wall Thickness 0.4 LVOT Diameter 2.0 cm M-MODE Aortic Root Diameter MM 2.6 cm LA Systolic Diameter MM 3.6 cm LA Ao Ratio MM 1.4 AV Cusp Separation MM 1.7 cm DOPPLER AV Peak Velocity 143.0 cm/s AV Peak Gradient 8.2 mmHg LVOT Peak Velocity 96.3 cm/s LVOT Peak Gradient 3.7 mmHg AV Area Cont Eq pk 2.1 cm Mitral E Point Velocity 98.7 cm/s Mitral A Point Velocity 59.7 cm/s Mitral E to A Ratio 1.7 LV E' Lateral Velocity 11.9 cm/s Mitral E to LV E' Lateral Ratio 8.3 LV E' Septal Velocity 10.8 cm/s Mitral E to LV E' Septal Ratio 9.1 PV Peak Velocity 130.0 cm/s PV Peak Gradient 6.8 mmHg FINDINGS LEFT VENTRICLE The left ventricular systolic function is normal with an estimated ejection fraction in the range of 55-60%. Wall thickness is normal. Normal left ventricular size. RIGHT VENTRICLE Normal right ventricular size and systolic function. LEFT ATRIUM The left atrial size is normal. RIGHT ATRIUM The right atrial size is normal. ATRIAL SEPTUM Normal atrial septal thickness without atrial level shunting by limited color doppler interrogation. AORTA The aortic root and proximal ascending aorta are normal in size on limited imaging. MITRAL VALVE Structurally normal mitral valve. No mitral valve stenosis or regurgitation. AORTIC VALVE Trileaflet aortic valve. No aortic valve stenosis or regurgitation. TRICUSPID VALVE Structurally normal tricuspid valve. No tricuspid valve stenosis or regurgitation. PULMONARY VALVE The pulmonary valve is not well visualized. VESSELS The inferior vena cava is normal in size. PERICARDIUM No pericardial effusion. Cedrick Bar MD, FACC, FSCAI (Electronically Signed) Final Date:12 Aug 2017 19:08
[2017-08-13] VITALS (33 sets, daily range): BP systolic 80–103; BP diastolic 47–63; PULSE 60–82; RESP 13–34; TEMP 97.6–98.8; O2SAT 94–98
[2017-08-13] MEDS: diphenhydrAMINE HCL 50 MG CAP PO PRN ×2 (00:26→22:27)
[2017-08-13] MEDS: IBUPROFEN 600 MG TAB PO PRN ×3 (01:36→18:25)
[2017-08-13 05:26] LABS: CHLORIDE 106 MEQ/L (98-107); SODIUM (NA) 137 MEQ/L (136-145)
[2017-08-13 05:27] LABS: HEMATOCRIT 26.4 % (35.0-46.0); HEMOGLOBIN 8.8 GM/DL (11.6-15.3); MEAN CELL VOLUME 105.5 FL (80.0-100.0); MEAN CORPUSCULAR HGB CONC 33.2 % (32.0-36.0); MEAN PLATELET VOLUME 8.6 FL (7.0-11.0); PLATELET COUNT 320 TH/MM3 (150-450); RED CELL DISTRIBUTION WIDTH 21.8 % (11.6-17.2); WHITE BLOOD COUNT 17.9 TH/MM3 (4.0-11.0)
[2017-08-13 05:28] LABS: CALCIUM 8.3 MG/DL (8.5-10.1)
[2017-08-13 05:29] LABS: ALBUMIN 2.2 GM/DL (3.4-5.0); BICARBONATE 22.4 MEQ/L (21.0-32.0); BLOOD UREA NITROGEN 17 MG/DL (7-18); GLUCOSE,RANDOM 68 MG/DL (74-106)
[2017-08-13 05:31] LABS: ALT (GPT) 46 U/L (10-53)
[2017-08-13 05:32] LABS: AST (GOT) 153 U/L (15-37); CREATININE 0.59 MG/DL (0.50-1.00); GLOMERULAR FILTRATION RATE 117 ML/MIN (>89)
[2017-08-13 05:36] LABS: ALKALINE PHOSPHATASE 252 U/L (45-117); TOTAL BILIRUBIN ADULT 13.7 MG/DL (0.2-1.0); TOTAL PROTEIN 5.4 GM/DL (6.4-8.2)
[2017-08-13 05:52] LABS: BANDS 3 % (0-6); HYPERSEGMENTED POLYS 1+ (NORMAL); LYMPHOCYTES 8 % (9-44); METAMYELOCYTES 2 % (0-1); MONOCYTES 4 % (0-8); MYELOCYTES 1 % (0-0); NEUTROPHIL # MANUAL DIFF 15.6 TH/MM3 (1.8-7.7); OVALOCYTES 1+ (NORMAL); POLYS (SEG NEUTROPHILS) 81 % (16-70); STOMATOCYTES 1+ (NORMAL); TARGET CELLS 1+ (NORMAL); TEARDROP RBCS 1+ (NORMAL)
[2017-08-13] MEDS: MIDODRINE 5 MG TAB PO SCH ×3 (07:06→15:33)
[2017-08-13] MEDS: SPIRONOLACTONE 25 MG TAB PO SCH (09:36)
[2017-08-13] MEDS: PANTOPRAZOLE SOD 40 MG DELAYED RELEASE TAB PO SCH ×2 (09:36→20:16)
[2017-08-13] MEDS: FOLIC ACID 1 MG TAB PO SCH (09:36)
[2017-08-13] MEDS: CHOLESTYRAMINE 4 GM PACKET PO SCH (09:36)
[2017-08-13] MEDS: prednisoLONE 10 MG ODT TAB PO SCH (09:36)
[2017-08-13] MEDS: URSODIOL 300 MG CAP PO SCH ×2 (09:36→20:16)
[2017-08-13] MEDS: THIAMINE HCL 100 MG TAB PO SCH (09:36)
[2017-08-13] MEDS: POTASSIUM CHLORIDE 25 MEQ EFFERVESCENT TAB NG SCH (09:36)
--- NOTE | 2017-08-13 13:56 | HHI.PR ---
Subjective Remarks Patient seen and examined today for follow-up on hypotension. Patient still with hypotension during the night with map dropping down to 61. Otherwise patient is doing quite well. Jaundice is improving. Laboratory studies are improving. Patient is getting stronger. She is complaining of continued anasarca, edema, weight gain. Had long discussion with her concerning the inability to use diuretic because of her blood pressure. She does understand. Patient remains afebrile Objective Vitals Vital Signs Date Time Temp Pulse Resp B/P (MAP) Pulse Ox O2 Delivery O2 Flow Rate FiO2 08/13/17 13:09 72 22 87/60 (69) 96 08/13/17 12:09 98.1 64 16 81/59 (66) 96 08/13/17 12:00 65 08/13/17 11:08 82 34 87/51 (63) 97 08/13/17 10:00 80 08/13/17 09:09 70 14 87/47 (60) 95 08/13/17 08:09 98.0 68 14 85/48 (60) 95 08/13/17 08:00 70 08/13/17 07:09 74 25 82/54 (63) 98 08/13/17 06:29 16 85/55 (65) 94 08/13/17 06:00 77 08/13/17 04:00 62 08/13/17 03:09 70 15 82/51 (61) 94 08/13/17 02:36 14 08/13/17 02:09 70 23 87/58 (68) 96 08/13/17 02:00 64 08/13/17 01:26 14 08/13/17 01:09 70 22 95/60 (72) 96 08/13/17 00:09 68 25 88/61 (70) 96 08/13/17 00:00 79 08/12/17 23:09 70 30 93/62 (72) 96 08/12/17 22:09 82 37 100/66 (77) 93 08/12/17 22:00 93 08/12/17 21:09 66 27 96/63 (74) 96 08/12/17 20:00 88 08/12/17 20:00 98.6 74 33 98/69 (79) 97 08/12/17 19:09 66 28 97/63 (74) 97 08/12/17 18:00 68 08/12/17 17:30 72 08/12/17 17:09 72 22 93/65 (74) 96 08/12/17 17:00 68 08/12/17 16:09 98.1 72 17 94/57 (69) 96 08/12/17 16:00 72 08/12/17 15:09 84 30 100/65 (77) 96 08/12/17 14:09 74 25 93/74 (80) 96 08/12/17 14:09 74 I/O 08/12/17 08/12/17 08/12/17 08/13/17 08/13/17 08/13/17 07:00 15:00 23:00 07:00 15:00 23:00 Intake Total 480 ml 500 ml 360 ml Balance 480 ml 500 ml 360 ml Intake Oral 480 ml 360 ml IV Total 500 ml # Voids 2 4 3 # Bowel Movements 2 0 Result Diagram: 08/13/1741908/13/17419 Objective Remarks GENERAL: Well-developed, well-nourished, in no acute distress. alert and orientated HEENT: Head is normocephalic without any lesions or masses noted. Facial features are symmetric. Eyes: Extraocular muscles are intact. Conjunctivae are icteric. NECK: Supple without any masses. Trachea midline no deviation. No JVD, no bruits are appreciated CARDIAC: Regular rhythm, regular rate. S1/S2 are heard. No murmurs gallops or rubs. LUNGS: Clear to auscultation bilaterally. No wheeze, rhonchi or rales. No use of accessory muscles on inspiration or expiration. ABDOMEN: Soft, abdominal tenderness has improved.. Mildly distended. Bowel sounds heard in all 4 quadrants. No organomegaly or masses. Negative rebound, negative guarding EXTREMITIES: Bilateral lower extremity nonpitting edema, pulses are equal bilaterally. No cyanosis or clubbing, skin is jaundice NEUROLOGY: Mood and affect appear appropriate. Cranial nerves II through XII grossly intact. 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 -Avoid Tylenol, pain control with ibuprofen, morphine IV and oxycodone if blood pressure permits -Status post Cipro and Flagyl IV antibiotics. -Status post Octreotide -Continue Protonix 40 mg p.o. twice daily -Status post CIWA protocol. Patient counseled on cessation -Continue folic acid and thiamine. -Bilirubin, liver enzymes continue to improve. -GI following and appreciate input and recommendations. Patient will need outpatient follow-up -Status post liver biopsy, indicated alcohol liver disease, cholestasis -General surgery evaluated the patient who indicated nonoperative management. Anemia suspect secondary to acute blood loss. Resolved. -Status post transfusion 2 units of packed red blood cells -GI consulted for recommendations -Status post EGD with duodenitis, gastritis, irregular Z line. 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 Internal hemorrhoids, external hemorrhoids Hypokalemia. Resolved. 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 -Magnesium within normal limits, DVT prophylaxis: -Sequential compression devices, patient is not ambulating -Continue to hold hold chemical prophylaxis for now secondary to GI bleed. Discharge Planning Anticipate discharge if blood pressure remains stable. Chu [address] August 13, 2017 13:56
--- NOTE | 2017-08-13 18:07 | RADRPT ---
EXAM DATE/TIME: 08/09/2017 12:00 [place] COMPARISON: No previous studies available for comparison. INDICATIONS : Elevated LFT. SEDATION TIME: 30 minutes BIOPSY SITE: Right liver MEDICATION(S): 1.) 2 mg midazolam (Versed) IV 2.) 100 mcg fentanyl (Sublimaze) IV DEVICE(S): 1.) 18 gauge BioPince needle MEDICAL HISTORY : Hypertension. Pituitary tumor SURGICAL HISTORY : None. ENCOUNTER: Initial ACUITY: 1 day PAIN SCORE: 0/10 LOCATION: Right liver A total of one core specimen(s) were obtained and sent to the laboratory for pathologic evaluation. PROCEDURE: 1. CT guided liver biopsy. 2. Conscious sedation with continuous EKG and oximetry monitoring. 3. EKG and oximetry remained stable throughout the procedure. Prior to the procedure informed consent was obtained. Any appropriate prior imaging studies were rev iewed. Using automated exposure control and adjustment of the mA and/or kV according to patient size, radiat ion dose was kept as low as reasonably achievable to obtain optimal diagnostic quality images. DICOM format image data is available electronically for review and comparison. The site was prepped in a sterile fashion. Full sterile technique was used, including cap, mask, angela rile gloves and gown and a large sterile sheet. Hand hygiene and 2% chlorhexidine and/or betadine/al cohol prep was utilized per protocol for cutaneous antisepsis. The skin and subcutaneous tissues wer e infiltrated with local anesthetic solution. With CT guidance the previously identified target was localized. Biopsy was performed using the presc ribed needle as above. Adequate hemostasis was obtained with compression at the puncture site. Follow-up CT scan reveals no hemorrhage. The patient tolerated the procedure well and there were no complications. The patient was returned to the Radiology Outpatient Unit in stable condition. CONCLUSION: Uncomplicated CT guided liver core biopsy. The liver is diffusely low in attenuation consistent with fatty infiltration. Den Blanchard Jr., MD on August 13, 2017 at 18:04 Board Certified Radiologist. This report was verified electronically.
[2017-08-14] VITALS (26 sets, daily range): BP systolic 78–102; BP diastolic 45–62; PULSE 62–100; RESP 13–36; TEMP 97.8–98.5; O2SAT 94–98
[2017-08-14] MEDS: IBUPROFEN 600 MG TAB PO PRN ×3 (02:38→20:33)
[2017-08-14] MEDS: MIDODRINE 5 MG TAB PO SCH ×3 (05:14→18:15)
[2017-08-14] MEDS: URSODIOL 300 MG CAP PO SCH ×2 (10:18→19:44)
[2017-08-14] MEDS: POTASSIUM CHLORIDE 25 MEQ EFFERVESCENT TAB NG SCH (10:18)
[2017-08-14] MEDS: prednisoLONE 10 MG ODT TAB PO SCH (10:18)
[2017-08-14] MEDS: SPIRONOLACTONE 25 MG TAB PO SCH (10:19)
[2017-08-14] MEDS: FOLIC ACID 1 MG TAB PO SCH (10:19)
[2017-08-14] MEDS: PANTOPRAZOLE SOD 40 MG DELAYED RELEASE TAB PO SCH ×2 (10:19→19:44)
[2017-08-14] MEDS: CHOLESTYRAMINE 4 GM PACKET PO SCH (10:19)
[2017-08-14] MEDS: THIAMINE HCL 100 MG TAB PO SCH (10:19)
[2017-08-14] MEDS ORDERED: ONDANSETRON ODT 4 MG TAB PO PRN (13:15)
--- NOTE | 2017-08-14 13:19 | HHI.PR ---
Subjective Remarks Patient seen and examined today for follow-up on hypotension. Patient still hypotensive throughout the night despite increase of midodrine. Will need to decrease dose of spironolactone, however patient might develop worsening edema that she already is. We will reconsult cattle sticker to see if there is anything else that can be done in reference to the patient's liver disease, blood pressure. Objective Vitals Vital Signs Date Time Temp Pulse Resp B/P (MAP) Pulse Ox O2 Delivery O2 Flow Rate FiO2 08/14/17 06:00 66 08/14/17 06:00 66 15 79/45 (56) 94 08/14/17 05:00 70 13 80/47 (58) 95 08/14/17 04:00 76 08/14/17 04:00 98.5 76 33 78/50 (59) 96 08/14/17 03:00 64 17 81/51 (61) 94 08/14/17 02:00 64 15 81/51 (61) 95 08/14/17 02:00 64 08/14/17 01:00 64 14 85/47 (60) 95 08/14/17 00:00 66 08/14/17 00:00 97.9 66 14 85/48 (60) 95 08/13/17 23:00 60 20 85/53 (64) 96 08/13/17 22:30 60 18 88/57 (67) 98 08/13/17 22:30 60 08/13/17 21:09 74 13 81/53 (62) 96 08/13/17 20:09 97.6 68 26 80/60 (67) 95 08/13/17 20:00 64 08/13/17 19:09 66 24 91/63 (72) 97 08/13/17 18:09 68 26 82/57 (65) 96 08/13/17 18:00 74 08/13/17 17:09 68 25 82/50 (61) 96 08/13/17 16:09 98.8 76 18 87/63 (71) 96 08/13/17 16:00 74 08/13/17 15:09 80 19 103/48 (66) 95 08/13/17 15:00 82 08/13/17 14:34 68 25 80/52 (61) 94 08/13/17 14:00 74 I/O 08/13/17 08/13/17 08/13/17 08/14/17 08/14/17 08/14/17 07:00 15:00 23:00 07:00 15:00 23:00 Intake Total 360 ml Balance 360 ml Intake Oral 360 ml # Voids 3 4 2 # Bowel Movements 0 Result Diagram: 08/13/1741908/13/17419 Objective Remarks GENERAL: Well-developed, well-nourished, in no acute distress. alert and orientated HEENT: Head is normocephalic without any lesions or masses noted. Facial features are symmetric. Eyes: Extraocular muscles are intact. Conjunctivae are icteric. NECK: Supple without any masses. Trachea midline no deviation. No JVD, no bruits are appreciated CARDIAC: Regular rhythm, regular rate. S1/S2 are heard. No murmurs gallops or rubs. LUNGS: Clear to auscultation bilaterally. No wheeze, rhonchi or rales. No use of accessory muscles on inspiration or expiration. ABDOMEN: Soft, abdominal tenderness has improved.. Mildly distended. Bowel sounds heard in all 4 quadrants. No organomegaly or masses. Negative rebound, negative guarding EXTREMITIES: Bilateral lower extremity nonpitting edema, pulses are equal bilaterally. No cyanosis or clubbing, skin is jaundice NEUROLOGY: Mood and affect appear appropriate. Cranial nerves II through XII grossly intact. 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 -Avoid Tylenol, pain control with ibuprofen, morphine IV and oxycodone if blood pressure permits -Status post Cipro and Flagyl IV antibiotics. -Status post Octreotide -Continue Protonix 40 mg p.o. twice daily -Status post CIWA protocol. Patient counseled on cessation -Continue folic acid and thiamine. -Bilirubin, liver enzymes continue to improve. -GI following and appreciate input and recommendations. Reconsult gastrologist for further recommendations -Status post liver biopsy, indicated alcohol liver disease, cholestasis -General surgery evaluated the patient who indicated nonoperative management. Anemia suspect secondary to acute blood loss. Resolved. -Status post transfusion 2 units of packed red blood cells -GI consulted for recommendations -Status post EGD with duodenitis, gastritis, irregular Z line. 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 Internal hemorrhoids, external hemorrhoids Hypokalemia. Resolved. 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 -Magnesium within normal limits, DVT prophylaxis: -Sequential compression devices, increase ambulation Discharge Planning Anticipate discharge if blood pressure remains stable. Chu St August 14, 2017 13:19
[2017-08-14] MEDS: diphenhydrAMINE HCL 50 MG CAP PO PRN (21:33)
[2017-08-15] VITALS (39 sets, daily range): BP systolic 82–100; BP diastolic 48–69; PULSE 62–98; RESP 15–40; TEMP 97.9–98.8; O2SAT 76–99
[2017-08-15] MEDS ORDERED: ALBUMIN 5% INJ 500 ML IV ONE (03:30)
[2017-08-15] MEDS: MIDODRINE 5 MG TAB PO SCH ×3 (05:26→17:30)
[2017-08-15 06:23] LABS: CHLORIDE 104 MEQ/L (98-107); SODIUM (NA) 138 MEQ/L (136-145)
[2017-08-15 06:26] LABS: CALCIUM 8.3 MG/DL (8.5-10.1)
[2017-08-15 06:27] LABS: ALBUMIN 2.6 GM/DL (3.4-5.0); BICARBONATE 26.4 MEQ/L (21.0-32.0); BLOOD UREA NITROGEN 12 MG/DL (7-18); GLUCOSE,RANDOM 89 MG/DL (74-106)
[2017-08-15 06:30] LABS: ALT (GPT) 64 U/L (10-53); AST (GOT) 168 U/L (15-37); GLOMERULAR FILTRATION RATE 114 ML/MIN (>89)
[2017-08-15 06:32] LABS: TOTAL BILIRUBIN ADULT 12.8 MG/DL (0.2-1.0); TOTAL PROTEIN 5.8 GM/DL (6.4-8.2)
[2017-08-15 06:33] LABS: ALKALINE PHOSPHATASE 327 U/L (45-117)
[2017-08-15 06:37] LABS: HEMATOCRIT 25.8 % (35.0-46.0); MEAN CELL VOLUME 106.2 FL (80.0-100.0); MEAN CORPUSCULAR HEMOGLOBIN 37.1 PG (27.0-34.0); MEAN CORPUSCULAR HGB CONC 34.9 % (32.0-36.0); MEAN PLATELET VOLUME 9.3 FL (7.0-11.0); PLATELET COUNT 269 TH/MM3 (150-450); RED BLOOD COUNT 2.43 MIL/MM3 (4.00-5.30); RED CELL DISTRIBUTION WIDTH 22.2 % (11.6-17.2); WHITE BLOOD COUNT 17.8 TH/MM3 (4.0-11.0)
[2017-08-15 08:14] LABS: BANDS 3 % (0-6); LYMPHOCYTES 7 % (9-44); MONOCYTES 9 % (0-8); POLYS (SEG NEUTROPHILS) 81 % (16-70)
[2017-08-15 08:16] LABS: STOMATOCYTES 2+ (NORMAL); TARGET CELLS 1+ (NORMAL); TEARDROP RBCS 1+ (NORMAL)
[2017-08-15] MEDS: POTASSIUM CHLORIDE 25 MEQ EFFERVESCENT TAB NG SCH (10:46)
[2017-08-15] MEDS: CHOLESTYRAMINE 4 GM PACKET PO SCH (10:46)
[2017-08-15] MEDS: URSODIOL 300 MG CAP PO SCH ×2 (10:47→19:26)
[2017-08-15] MEDS: PANTOPRAZOLE SOD 40 MG DELAYED RELEASE TAB PO SCH ×2 (10:47→19:26)
[2017-08-15] MEDS: SPIRONOLACTONE 25 MG TAB PO SCH (10:47)
[2017-08-15] MEDS: THIAMINE HCL 100 MG TAB PO SCH (10:47)
[2017-08-15] MEDS: FOLIC ACID 1 MG TAB PO SCH (10:47)
[2017-08-15] MEDS: prednisoLONE 10 MG ODT TAB PO SCH (10:48)
[2017-08-15] MEDS: IBUPROFEN 600 MG TAB PO PRN ×2 (11:03→19:26)
--- NOTE | 2017-08-15 13:34 | HHI.PR ---
Subjective Remarks Patient seen and examined today for follow-up on hypotension. Patient without any significant change despite midodrine, decrease in Aldactone. Patient even had a dose of albumin last night because of low blood pressure without any significant improvement of her blood pressure. Patient maintains a map anywhere from 65-70 despite treatment. Objective Vitals Vital Signs Date Time Temp Pulse Resp B/P (MAP) Pulse Ox O2 Delivery O2 Flow Rate FiO2 08/15/17 13:01 74 25 86/54 (65) 99 08/15/17 12:03 98.5 84 34 84/56 (65) 76 08/15/17 12:00 84 08/15/17 11:01 90 20 94/63 (73) 96 08/15/17 11:00 88 08/15/17 10:54 98 36 84/56 (65) 08/15/17 10:01 98.7 70 16 83/48 (60) 95 08/15/17 10:00 70 08/15/17 09:01 66 15 82/49 (60) 97 08/15/17 09:00 64 08/15/17 08:01 68 17 90/54 (66) 96 08/15/17 08:00 68 08/15/17 07:01 62 20 85/52 (63) 92 08/15/17 06:01 68 16 86/50 (62) 95 08/15/17 06:00 68 08/15/17 05:01 70 18 86/53 (64) 93 08/15/17 04:01 97.9 70 16 85/52 (63) 95 08/15/17 04:00 70 08/15/17 03:01 72 15 87/48 (61) 96 08/15/17 02:01 68 17 87/53 (64) 95 08/15/17 02:00 66 08/15/17 01:01 70 16 90/57 (68) 94 08/15/17 00:01 98.8 68 18 86/54 (65) 95 08/15/17 00:00 68 08/14/17 23:01 68 16 92/59 (70) 94 08/14/17 22:01 64 16 93/58 (70) 95 08/14/17 22:00 64 08/14/17 21:01 84 34 102/52 (69) 95 08/14/17 20:01 98.2 84 36 99/61 (74) 96 08/14/17 20:00 84 08/14/17 19:01 68 20 98/62 (74) 98 08/14/17 18:00 74 08/14/17 18:00 74 29 87/55 (66) 97 08/14/17 17:00 70 23 86/54 (65) 96 08/14/17 16:00 74 08/14/17 16:00 74 24 99/58 (72) 96 08/14/17 15:00 78 31 95/56 (69) 95 08/14/17 14:00 74 17 90/60 (70) 95 08/14/17 14:00 74 I/O 08/14/17 08/14/17 08/14/17 08/15/17 08/15/17 08/15/17 07:00 15:00 23:00 07:00 15:00 23:00 Intake Total 720 ml 860 ml Balance 720 ml 860 ml Intake Oral 720 ml 360 ml IV Total 500 ml # Voids 2 4 1 # Bowel Movements 2 1 Result Diagram: 08/15/17 0536 08/15/17 0536 Objective Remarks GENERAL: Well-developed, well-nourished, in no acute distress. alert and orientated HEENT: Head is normocephalic without any lesions or masses noted. Facial features are symmetric. Eyes: Extraocular muscles are intact. Conjunctivae are icteric. NECK: Supple without any masses. Trachea midline no deviation. No JVD, no bruits are appreciated CARDIAC: Regular rhythm, regular rate. S1/S2 are heard. No murmurs gallops or rubs. LUNGS: Clear to auscultation bilaterally. No wheeze, rhonchi or rales. No use of accessory muscles on inspiration or expiration. ABDOMEN: Soft, abdominal tenderness has improved.. Mildly distended. Bowel sounds heard in all 4 quadrants. No organomegaly or masses. Negative rebound, negative guarding EXTREMITIES: Bilateral lower extremity nonpitting edema, pulses are equal bilaterally. No cyanosis or clubbing, skin is jaundice NEUROLOGY: Mood and affect appear appropriate. Cranial nerves II through XII grossly intact. 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 -Avoid Tylenol, pain control with ibuprofen, morphine IV and oxycodone if blood pressure permits -Status post Cipro and Flagyl IV antibiotics. -Status post Octreotide -Continue Protonix 40 mg p.o. twice daily -Status post CIWA protocol. Patient counseled on cessation -Continue folic acid and thiamine. -Bilirubin, liver enzymes continue to improve. -GI following and appreciate input and recommendations. Reconsult gastrologist for further recommendations -Status post liver biopsy, indicated alcohol liver disease, cholestasis -General surgery evaluated the patient who indicated nonoperative management. Anemia suspect secondary to acute blood loss. Resolved. -Status post transfusion 2 units of packed red blood cells -GI consulted for recommendations -Status post EGD with duodenitis, gastritis, irregular Z line. 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 Internal hemorrhoids, external hemorrhoids Hypokalemia. Resolved. 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 -Magnesium within normal limits, DVT prophylaxis: -Sequential compression devices, increase ambulation Discharge Planning Anticipate discharge if blood pressure remains stable. Chu [address] August 15, 2017 13:34
--- NOTE | 2017-08-15 17:14 | HHI.GIFU ---
GI Follow-up Note Consult Follow-up Subjective: Patient laying in bed comfortably, no new complaints except Abdominal pain Objective: PHYSICAL EXAMINATION: Vitals signs stable No fever HEENT: Pupils round and reactive to light; normocephalic; atraumatic; no jaundice. Throat is clear. NECK: Neck is supple, no JVD, no lymphadenopathy. CHEST: Chest is clear to auscultation and percussion. CARDIAC: Regular rate and rhythm with no murmur gallop or rubs. ABDOMEN: Soft, nondistended, nontender; no hepatosplenomegaly; bowel sounds are present in all four quadrants. EXTREMITIES: No clubbing, cyanosis, or edema. SKIN: Normal; no rash; no jaundice. RESEARCH ASSISTANT PROFESSOR: No focal deficits; alert and oriented times three. Available Data (labs, X- Rays, Procedues) : Last Impressions Liver Biopsy CT 08/09/17 0000 Signed Impressions: Service Date/Time: Wednesday, August 09, 2017 12:00 - CONCLUSION: Uncomplicated CT guided liver core biopsy. The liver is diffusely low in attenuation consistent with fatty infiltration. Den Blanchard Jr., MD Head CT 08/07/17 0000 Signed Impressions: Service Date/Time: Monday, August 07, 2017 14:52 - CONCLUSION: No acute disease. Giacomo Holguin MD Abdomen/Pelvis CT 08/07/17 0000 Signed Impressions: Service Date/Time: Monday, August 07, 2017 14:56 - CONCLUSION: 1. Marked hepatomegaly. 2. Diffuse heterogeneity of the liver parenchyma suggestive of diffuse hepatocellular disease, fatty infiltration or possible hepatitis. 3. Marked splenomegaly. 4. Distended gallbladder with minimal pericholecystic fluid. 5. Small amount of ascites within the abdomen and pelvis. 6. Small right pleural effusion with adjacent compressive atelectasis. Giacomo Holguin MD Hepatobiliary Scan Nuclear Medicine 08/02/17 0000 Signed Impressions: Service Date/Time: Wednesday, August 02, 2017 13:49 - CONCLUSION: 1. Extremely poor hepatocyte function with persistent blood pool activity and no significant excretion from the parenchyma during 96 minutes of continuous observation. 2. Due to the hepatocellular dysfunction, evaluation of the gallbladder cannot be performed. Den Juarez MD ADDENDUM: COMPARISON: MRCP W/O CONTRAST, August 01, 2017, 19:59. The patient returned for 18 hour delayed images. Much of the activity is still within the liver consistent with poor hepatic function. There does appear to be some activity seen in the gallbladder. Zaheer Oates MD Gall Bladder Ultrasound 08/01/17 0000 Signed Impressions: Service Date/Time: Tuesday, August 01, 2017 17:01 - CONCLUSION: 1. Hepatomegaly with diffusely echogenic hepatic parenchyma. Diminished hepatofugal flow in the portal vein. Overall findings may reflect subacute hepatitis versus profound hepatic steatosis versus medical liver disease. 2. Moderately distended gallbladder and common bile duct. Findings are concerning for acute distal CBD obstruction. Consider MRCP or ERCP examination for further evaluation. 3. Gallbladder sludge with mild diffuse gallbladder wall prominence. These findings are routinely seen in patients with chronic liver disease and significantly limit overall sonographic sensitivity for acute cholecystitis. Thompson Mcguire MD Cholangiopancreatography MRI 08/01/17 0000 Signed Impressions: Service Date/Time: Tuesday, August 01, 2017 19:59 - CONCLUSION: 1. Common bile duct is normal in caliber without focal intraductal abnormality. 2. Moderate gallbladder distention with trace pericholecystic fluid. This does raise the possibility for acute cholecystitis in the appropriate clinical setting. Consider HIDA scan to document cystic duct patency if there is persistent significant clinical concern. 3. Diffuse hepatomegaly similar to ultrasound exam. Again, differential considerations include profound hepatic steatosis versus medical liver disease versus subacute hepatitis given findings of diminished hepatopedal flow on ultrasound. Thompson Mcguire MD Laboratory Tests Test 08/15/17 05:36 White Blood Count 17.8 TH/MM3 Red Blood Count 2.43 MIL/MM3 Hemoglobin 9.0 GM/DL Hematocrit 25.8 % Mean Corpuscular Volume 106.2 FL Mean Corpuscular Hemoglobin 37.1 PG Mean Corpuscular Hemoglobin Concent 34.9 % Red Cell Distribution Width 22.2 % Platelet Count 269 TH/MM3 Mean Platelet Volume 9.3 FL CBC Comment AUTO DIFF Differential Total Cells Counted 100 Neutrophils % (Manual) 81 % Band Neutrophils % 3 % Lymphocytes % 7 % Monocytes % 9 % Neutrophils # (Manual) 15.0 TH/MM3 Differential Comment FINAL DIFF MANUAL Hypersegmented Polys Platelet Estimate NORMAL Target Cells 1+ Tear Drop Cells 1+ Stomatocytes 2+ Blood Urea Nitrogen 12 MG/DL Creatinine 0.60 MG/DL Random Glucose 89 MG/DL Total Protein 5.8 GM/DL Albumin 2.6 GM/DL Calcium Level 8.3 MG/DL Alkaline Phosphatase 327 U/L Aspartate Amino Transf (AST/SGOT) 168 U/L Alanine Aminotransferase (ALT/SGPT) 64 U/L Total Bilirubin 12.8 MG/DL Sodium Level 138 MEQ/L Potassium Level 3.9 MEQ/L Chloride Level 104 MEQ/L Carbon Dioxide Level 26.4 MEQ/L Anion Gap 8 MEQ/L Estimat Glomerular Filtration Rate 114 ML/MIN Allergies Coded Allergies Type Severity Reaction Last Updated Verified No Known Allergies 08/04/17 No Active Scripts Medications Dose Route/Sig Max Daily Dose Days Date Category No Active Prescriptions or Reported Medications Rx ASSESSMENT/PLAN: Reconsulted to go over liver biopsy resilts. 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 Discussed with pt. advised to quit ETOH completely. LFTs improving. Repeat HIDA scan if abdominal pain persists. Will sign off. GI fu upon dc. Thank you It was a pleasure seeing Elvira Camacho. Thank you for this consult. Entered by: Naga Tom MD August 15, 2017 17:14
[2017-08-15] MEDS: diphenhydrAMINE HCL 50 MG CAP PO PRN (22:21)
[2017-08-16] VITALS (22 sets, daily range): BP systolic 75–93; BP diastolic 51–58; PULSE 58–84; RESP 15–33; TEMP 97.7–98.9; O2SAT 95–97
[2017-08-16] MEDS: MIDODRINE 5 MG TAB PO SCH ×2 (05:26→14:03)
[2017-08-16] MEDS: IBUPROFEN 600 MG TAB PO PRN ×2 (05:34→14:03)
[2017-08-16] MEDS: POTASSIUM CHLORIDE 25 MEQ EFFERVESCENT TAB NG SCH (09:50)
[2017-08-16] MEDS: CHOLESTYRAMINE 4 GM PACKET PO SCH (09:50)
[2017-08-16] MEDS: FOLIC ACID 1 MG TAB PO SCH (09:51)
[2017-08-16] MEDS: prednisoLONE 10 MG ODT TAB PO SCH (09:51)
[2017-08-16] MEDS: URSODIOL 300 MG CAP PO SCH (09:52)
[2017-08-16] MEDS: SPIRONOLACTONE 25 MG TAB PO SCH (09:52)
[2017-08-16] MEDS: THIAMINE HCL 100 MG TAB PO SCH (09:52)
[2017-08-16] MEDS: PANTOPRAZOLE SOD 40 MG DELAYED RELEASE TAB PO SCH (09:52)
[2017-08-16] MEDS ORDERED: Ursodiol PO (12:40)
[2017-08-16] MEDS ORDERED: CHOL4POW4 PO (12:40)
[2017-08-16] MEDS ORDERED: MIDO5TAB PO (12:40)
[2017-08-16] MEDS ORDERED: PRED1TAB72 PO (12:40)
[2017-08-16] MEDS ORDERED: KLYTECL NG (12:40)
[2017-08-16] MEDS ORDERED: PANT40TA3 PO (12:40)
[2017-08-16] MEDS ORDERED: SPIR25 PO (12:40)
--- NOTE | 2017-08-16 12:41 | HHI.DCPOC ---
Discharge Care Plan Diagnosis: (1) Alcoholic hepatitis (2) Transaminitis (3) Hyponatremia (4) Hyperbilirubinemia (5) Anemia Goals to Promote Your Health * To prevent worsening of your condition and complications * To maintain your health at the optimal level Directions to Meet Your Goals Take your medications as prescribed Follow your dietary instruction Follow activity as directed Keep your appointments as scheduled Take your immunizations and boosters as scheduled If your symptoms worsen call your PCP, if no PCP go to Urgent Care Center or Emergency Room Smoking is Dangerous to Your Health. Avoid second hand smoke Call the 24-hour hour crisis hotline for domestic abuse at [address] August 16, 2017 12:41
--- NOTE | 2017-08-16 13:51 | HHI.DS ---
Discharge Summary Admission Date Aug 01, 2017 at 18:01 Discharge Date: August 16, 2017 Admitting Diagnosis CBD obstruction, hypokalemia, hepatitis (1) Hypotension ICD Code: I95.9 - Hypotension, unspecified (2) Alcoholic hepatitis ICD Code: K70.10 - Alcoholic hepatitis without ascites (3) Hyperbilirubinemia ICD Code: E80.6 - Other disorders of bilirubin metabolism Status: Acute (4) Transaminitis ICD Code: R74.0 - Nonspecific elevation of levels of transaminase and lactic acid dehydrogenase [LDH] Status: Acute (5) Anemia ICD Code: D64.9 - Anemia, unspecified Status: Acute (6) Hyponatremia ICD Code: E87.1 - Hypo-osmolality and hyponatremia Status: Acute Procedures ECHOCARDIOGRAM The left ventricular systolic function is normal with an estimated ejection fraction in the range of 55-60%. Wall thickness is normal. Normal left ventricular size. EGD 1. Duodenitis bulb and second portion-biopsy gastritis antum-biopsy irregular z line-biopsy 2. Retroflexed views revealed a hiatal hernia Liver biopsy The findings in this case are consistent with alcoholic steatohepatitis. Cholestasis is also present which raises the possibility of a superimposed secondary condition. Bile stasis can be seen in a variety of settings including bile duct obstruction, acute hepatitis, cholestatic drug jaundice and sepsis, among others. Clinical correlation is recommended. Brief History - From Admission 32-year-old female admitted for intractable abdominal pain Patient was in her usual state of health until sometime around last December she began experiencing intermittent abdominal pain that would come for 2-3 weeks and then disappear. She would take about 2 pills of Aleve every other day for 4 days when her pain cycles would happen. However within the last month her pain has now become constant and radiates throughout her entire abdomen. Around this timeframe she also noted having bright red blood per rectum along with black tarry stools. She has not been taking Aleve for any NSAIDs for the past month. Within the last 2 weeks she started having persistent nausea and vomiting with bilious emesis along with intermittent bloody specks noted. About 1 week ago she noticed that she turned yellow and her abdominal pain progressed. Within the last 3 days she noted her abdomen became very bloated and it was very painful to move around or bend forward or even get up from a toilet seat. Thus she decided come to the emergency department today. She reports having night sweats and no chills. Emergency department the patient was noted to have an elevated white count of 13 K, gallbladder ultrasound was suggestive of CBD obstruction. Potassium was 2.3. Social history: denies taking any Tylenol. Patient does report that she drinks 8-9 shots a day for 3-4 days a week and says she has been doing this for months. Says she stopped smoking marijuana about 8-9 months ago. Has been smoking on and off a few cigarettes a day since her late teenage years. Does not see primary care physician regularly. Medical history: Had been treated with bromocriptine for pituitary adenoma, was discontinued off medication by physician. Says she has been diagnosed at [facility] in [place] for celiac disease. Family history: HTN CBC/BMP: 08/15/17 0536 08/15/17 0536 Significant Findings Laboratory Tests Test 08/15/17 05:36 White Blood Count 17.8 TH/MM3 (4.0-11.0) Red Blood Count 2.43 MIL/MM3 (4.00-5.30) Hemoglobin 9.0 GM/DL (11.6-15.3) Hematocrit 25.8 % (35.0-46.0) Mean Corpuscular Volume 106.2 FL (80.0-100.0) Mean Corpuscular Hemoglobin 37.1 PG (27.0-34.0) Red Cell Distribution Width 22.2 % (11.6-17.2) Neutrophils % (Manual) 81 % (16-70) Lymphocytes % 7 % (9-44) Monocytes % 9 % (0-8) Neutrophils # (Manual) 15.0 TH/MM3 (1.8-7.7) Target Cells 1+ (NORMAL) Tear Drop Cells 1+ (NORMAL) Stomatocytes 2+ (NORMAL) Total Protein 5.8 GM/DL (6.4-8.2) Albumin 2.6 GM/DL (3.4-5.0) Calcium Level 8.3 MG/DL (8.5-10.1) Alkaline Phosphatase 327 U/L (45-117) Aspartate Amino Transf (AST/SGOT) 168 U/L (15-37) Alanine Aminotransferase (ALT/SGPT) 64 U/L (10-53) Total Bilirubin 12.8 MG/DL (0.2-1.0) Imaging Last Impressions Liver Biopsy CT 08/09/17 0000 Signed Impressions: Service Date/Time: Wednesday, August 09, 2017 12:00 - CONCLUSION: Uncomplicated CT guided liver core biopsy. The liver is diffusely low in attenuation consistent with fatty infiltration. Den Blanchard Jr., MD Head CT 08/07/17 0000 Signed Impressions: Service Date/Time: Monday, August 07, 2017 14:52 - CONCLUSION: No acute disease. Giacomo Holguin MD Abdomen/Pelvis CT 08/07/17 0000 Signed Impressions: Service Date/Time: Monday, August 07, 2017 14:56 - CONCLUSION: 1. Marked hepatomegaly. 2. Diffuse heterogeneity of the liver parenchyma suggestive of diffuse hepatocellular disease, fatty infiltration or possible hepatitis. 3. Marked splenomegaly. 4. Distended gallbladder with minimal pericholecystic fluid. 5. Small amount of ascites within the abdomen and pelvis. 6. Small right pleural effusion with adjacent compressive atelectasis. Giacomo Holguin MD Hepatobiliary Scan Nuclear Medicine 08/02/17 0000 Signed Impressions: Service Date/Time: Wednesday, August 02, 2017 13:49 - CONCLUSION: 1. Extremely poor hepatocyte function with persistent blood pool activity and no significant excretion from the parenchyma during 96 minutes of continuous observation. 2. Due to the hepatocellular dysfunction, evaluation of the gallbladder cannot be performed. Den Juarez MD ADDENDUM: COMPARISON: MRCP W/O CONTRAST, August 01, 2017, 19:59. The patient returned for 18 hour delayed images. Much of the activity is still within the liver consistent with poor hepatic function. There does appear to be some activity seen in the gallbladder. Zaheer Oates MD Gall Bladder Ultrasound 08/01/17 0000 Signed Impressions: Service Date/Time: Tuesday, August 01, 2017 17:01 - CONCLUSION: 1. Hepatomegaly with diffusely echogenic hepatic parenchyma. Diminished hepatofugal flow in the portal vein. Overall findings may reflect subacute hepatitis versus profound hepatic steatosis versus medical liver disease. 2. Moderately distended gallbladder and common bile duct. Findings are concerning for acute distal CBD obstruction. Consider MRCP or ERCP examination for further evaluation. 3. Gallbladder sludge with mild diffuse gallbladder wall prominence. These findings are routinely seen in patients with chronic liver disease and significantly limit overall sonographic sensitivity for acute cholecystitis. Thompson Mcguire MD Cholangiopancreatography MRI 08/01/17 0000 Signed Impressions: Service Date/Time: Tuesday, August 01, 2017 19:59 - CONCLUSION: 1. Common bile duct is normal in caliber without focal intraductal abnormality. 2. Moderate gallbladder distention with trace pericholecystic fluid. This does raise the possibility for acute cholecystitis in the appropriate clinical setting. Consider HIDA scan to document cystic duct patency if there is persistent significant clinical concern. 3. Diffuse hepatomegaly similar to ultrasound exam. Again, differential considerations include profound hepatic steatosis versus medical liver disease versus subacute hepatitis given findings of diminished hepatopedal flow on ultrasound. Thompson Mcguire MD PE at Discharge GENERAL: Well-developed, well-nourished, in no acute distress. alert and orientated HEENT: Head is normocephalic without any lesions or masses noted. Facial features are symmetric. Eyes: Extraocular muscles are intact. Conjunctivae are icteric. NECK: Supple without any masses. Trachea midline no deviation. No JVD, no bruits are appreciated CARDIAC: Regular rhythm, regular rate. S1/S2 are heard. No murmurs gallops or rubs. LUNGS: Clear to auscultation bilaterally. No wheeze, rhonchi or rales. No use of accessory muscles on inspiration or expiration. ABDOMEN: Soft, abdominal tenderness has improved.. Mildly distended. Bowel sounds heard in all 4 quadrants. No organomegaly or masses. Negative rebound, negative guarding EXTREMITIES: Bilateral lower extremity nonpitting edema, pulses are equal bilaterally. No cyanosis or clubbing, skin is jaundice NEUROLOGY: Mood and affect appear appropriate. Cranial nerves II through XII grossly intact. Moving all extremities, speech is clear Hospital Course Hypotension, persistent -Unknown etiology could be intravascular depletion due to third spacing, liver disease -Status post volume expanding albumin 500 mL's 2 on 08/10/17, 250 mL on 08/14/17 -Try to avoid normal saline secondary to patient third spacing from liver disease -Hold all pain medicine, diuretics for map less than 65 -Decrease to spironolactone 12.5 mg daily -Midodrine 15 mg 3 times daily -Patient continues on prednisone 40 mg daily -Case was discussed extensively with mail clerk bills, who indicated that due to the patient's underlying clinical condition with underlying alcohol end-stage liver disease, he would recommend that a map of 55 and above would be sufficient. Did review echocardiogram, medications. Recommending continuation of midodrine. Would avoid any additional medications such as propanolol or Lasix at this time. 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 -Avoid Tylenol, pain control with ibuprofen, morphine IV and oxycodone if blood pressure permits -Status post Cipro and Flagyl IV antibiotics. -Status post Octreotide -Continue Protonix 40 mg p.o. twice daily -Status post CIWA protocol. Patient counseled on cessation -Continue folic acid and thiamine. -Bilirubin, liver enzymes continue to improve. -GI following and appreciate input and recommendations. Reconsult gastrologist for further recommendations -Status post liver biopsy, indicated alcohol liver disease, cholestasis -General surgery evaluated the patient who indicated nonoperative management. Anemia suspect secondary to acute blood loss. Resolved. -Status post transfusion 2 units of packed red blood cells -GI consulted for recommendations -Status post EGD with duodenitis, gastritis, irregular Z line. 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 Internal hemorrhoids, external hemorrhoids Hypokalemia. Resolved. 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 -Magnesium within normal limits, Pt Condition on Discharge: Stable Discharge Disposition: Discharge Home Discharge Time: > 30 minutes Discharge Instructions DIET: Follow Instructions for: Heart Healthy Diet Activities you can perform: Regular-No Restrictions Follow up Referrals: Gastroenterology - 2 Weeks PCP Follow-up - 1 Week New Medications: Cholestyramine (Cholestyramine) 4 Gm/Pkt Powd 4 GM PO DAILY for GI binding for 14 Days, PACKET 1 packet contains 4 grams of cholestyramine. Midodrine (Midodrine) 5 Mg Tab 15 MG PO TID@07,12,17 for Blood Pressure Management for 30 Days, TAB Pantoprazole (Pantoprazole) 40 Mg Tab 40 MG PO Q12HR for GI protection for 30 Days, TAB Potassium Bicarb-Chloride Effervescent (Effervescent Potassium Chloride 25 Meq) 25 Meq Tab 25 MEQ NG DAILY for electrolyte replacement for 30 Days, #30 TAB Prednisolone Odt (Prednisolone Odt) 10 Mg Tab 40 MG PO DAILY for Liver disease for 14 Days, #56 TAB Spironolactone (Aldactone) 25 Mg Tab 12.5 MG PO DAILY for Liver failure for 30 Days, #15 TAB [Ursodiol] () 300 MG CAP 300 MG PO Q12HR for [address] August 16, 2017 13:51
== END 2017-08-16 14:10 | disposition home or self-care (01) | DRG 433 ==
LOC: PHED 13:39 → PHEDA 18:01 → PH3A 23:12 → PHICU 08-09 16:18
PROVIDERS: ADMIT Hospitalist; ATTEND Hospitalist
PROC: 30233N1 Transfusion of Nonautologous Red Blood Cells into Peripheral Vein, Percutaneous Approach (ICD-10-PCS; principal; 2017-08-02)
PROC: 0DB98ZX Excision of Duodenum, Via Natural or Artificial Opening Endoscopic, Diagnostic (ICD-10-PCS; 2017-08-03)
PROC: 0DB68ZX Excision of Stomach, Via Natural or Artificial Opening Endoscopic, Diagnostic (ICD-10-PCS; 2017-08-03)
PROC: 0DB38ZX Excision of Lower Esophagus, Via Natural or Artificial Opening Endoscopic, Diagnostic (ICD-10-PCS; 2017-08-03)
PROC: 0D5M8ZZ Destruction of Descending Colon, Via Natural or Artificial Opening Endoscopic (ICD-10-PCS; 2017-08-04)
PROC: 0D5P8ZZ Destruction of Rectum, Via Natural or Artificial Opening Endoscopic (ICD-10-PCS; 2017-08-04)
PROC: 0FB13ZX Excision of Right Lobe Liver, Percutaneous Approach, Diagnostic (ICD-10-PCS; 2017-08-13)
DX: K70.10 Alcoholic hepatitis without ascites (principal); E87.1 Hypo-osmolality and hyponatremia; K70.9 Alcoholic liver disease, unspecified; I95.9 Hypotension, unspecified; D68.4 Acquired coagulation factor deficiency; D62 Acute posthemorrhagic anemia; F10.188 Alcohol abuse with other alcohol-induced disorder; K90.9 Intestinal malabsorption, unspecified; Q27.33 Arteriovenous malformation of digestive system vessel; E80.6 Other disorders of bilirubin metabolism; R74.0 Nonspecific elevation of levels of transaminase and lactic acid dehydrogenase [LDH]; F17.210 Nicotine dependence, cigarettes, uncomplicated; E87.6 Hypokalemia; K44.9 Diaphragmatic hernia without obstruction or gangrene; K29.80 Duodenitis without bleeding; K64.4 Residual hemorrhoidal skin tags; K64.8 Other hemorrhoids; E66.9 Obesity, unspecified; Z68.32 Body mass index [BMI] 32.0-32.9, adult
CPT/HCPCS: 36430; 47000; 70450; 74177; 74181; 76377; 76705; 77012; 78226; 80053; 80074; 80076; 81001; 82103; 82105; 82390; 82533; 82607; 82728; 82746; 82784; 83516; 83520; 83540; 83550; 83690; 83735; 84132; 84443; 84703; 85007; 85025; 85027; 85610; 85730; 86038; 86255; 86850; 86900; 86901; 86920; 87040; 87086; 87641; 88305; 88307; 88312; 88313; 93005; 93306; 96361; 96365; 96375; 99152; A9537; C9113; J0744; J1885; J1940; J2060; J2250; J2270; J2354; J2405; J2805; J3010; J3411; J3430; J3480; J7030; J7040; J7050; J7510; P9016; P9045; P9047; Q0163; Q9963; Q9967

== ENCOUNTER 2017-09-01 09:05 | Observation (INO) | payer OTHER ==
[~2017-09-01] VITALS: Ht 167.6 cm; Wt 88.6 kg
[2017-09-01] VITALS (9 sets, daily range): BP systolic 98–119; BP diastolic 53–73; PULSE 94–112; RESP 16–20; TEMP 99.3–100.1; O2SAT 98–99
[~2017-09-01 09:05] MED LIST changes: -BROM5CAP PO; +CHOL4POW4 PO; +KLYTECL NG; +MIDO5TAB PO; +PANT40TA3 PO; +PRED1TAB72 PO; -SPIR100 PO; +SPIR25 PO; +Ursodiol PO; -VIIB40TA PO
--- NOTE | 2017-09-01 09:45 | PD ---
HPI Chief Complaint: Musculoskeletal Complaint Time Seen by Provider: 09:45 Travel History International Travel<30 days: No Contact w/Intl Traveler<30days: No Traveled to known affect area: No History of Present Illness HPI 32-year-old female came to the emergency room with history of bilateral lower extremity pain symmetrical from just above the ankle and all the way to the foot. Patient says this is been going on for past 2 days. Pain comes and goes in waves with no aggravating or relieving factors identified. Patient says when the pain comes it is severe in nature. She has been unable to walk because of the pain. She has not had any trauma or injury to either of her legs. Patient was recently discharged from the hospital after she was diagnosed with alcoholic hepatitis. Vital signs were suggestive of tachycardia and temperature of 99.3. Patient appears to be in moderate distress. She says she has been taking ibuprofen for the pain but it is not helping. No history of fever or chills. PFSH Past Medical History Narrative Medical List of her past medical, surgical, social and family history is reviewed from the nursing note. Anemia: Yes Arthritis: No Asthma: Yes Anxiety: Yes Depression: Yes Cancer: No Cardiovascular Problems: Yes High Cholesterol: Yes Chemotherapy: No Chest Pain: No Congestive Heart Failure: No Cirrhosis: Yes Diabetes: No Diminished Hearing: No Endocrine: Yes (pituitary tumor) GERD: Yes Genitourinary: No Hepatitis: Yes Hypertension: Yes Musculoskeletal: Yes Neurologic: No Psychiatric: Yes Reproductive: No Respiratory: Yes (htn on meds) Pancreatitis: Yes Radiation Therapy: No Sickle Cell Disease: No Thyroid Disease: No Tetanus Vaccination: Unknown Influenza Vaccination: No ?: Not LMP: 2 months ago irregular : 0 Past Surgical History Oral Surgery: Yes (tooth extraction) Tonsillectomy: Yes (AGE 3) Other Surgery: Yes (TONSILECTOMY WHEN 3 YEARS OLD.) Social History Alcohol Use: Yes (states quit 07/31/17 hx of social drink, mix drinks, beer) Tobacco Use: No (states quit 08/01/17 -3-4 CIG PER week) Substance Use: Yes (QUIT SMOKING MARIJUANA ) Allergies-Medications (Allergen,Severity, Reaction): Coded Allergies: No Known Allergies (Unverified , 09/01/17) Comments No known drug allergies. Reported Meds & Prescriptions Reported Meds & Active Scripts Active Cholestyramine 4 Gm/Pkt Powd 4 Gm PO DAILY 14 Days 1 packet contains 4 grams of cholestyramine. Pantoprazole (Pantoprazole Sodium) 40 Mg Tab 40 Mg PO Q12HR 30 Days [Ursodiol] 300 MG Cap 300 Mg PO Q12HR 30 Days Effervescent Potassium Chloride 25 Meq (Potassium Bicarb/Potassium Chloride) 25 Meq Tab 25 Meq NG DAILY 30 Days Aldactone (Spironolactone) 25 Mg Tab 12.5 Mg PO DAILY 30 Days Reported Midodrine 5 Mg Tab 5 Mg PO TID Melatonin 10 Mg-1 Mg Tab 10 Mg PO HS PRN Narrative Medication List of her home medications reviewed from the nursing note. Review of Systems Except as stated in HPI: all other systems reviewed are Neg Musculoskeletal: Positive: Pain Physical Exam Narrative GENERAL: Awake, alert, moderate distress SKIN: Focused skin assessment warm/dry. HEAD: Atraumatic. Normocephalic. EYES: Pupils equal and round. No scleral icterus. No injection or drainage. ENT: No nasal bleeding or discharge. Mucous membranes pink and moist. NECK: Trachea midline. No JVD. CARDIOVASCULAR: Regular rate and rhythm. No murmur appreciated. RESPIRATORY: No accessory muscle use. Clear to auscultation. Breath sounds equal bilaterally. GASTROINTESTINAL: Abdomen soft, non-tender, nondistended. Hepatic and splenic margins not palpable. MUSCULOSKELETAL: No obvious deformities. No clubbing. No cyanosis. Bilateral lower extremity 1+ edema, spider hemangiomas, no discoloration of the skin. NEUROLOGICAL: Awake and alert. No obvious cranial nerve deficits. Motor grossly within normal limits. Normal speech. PSYCHIATRIC: Appropriate mood and affect; insight and judgment normal. Data Data Last Documented VS Vital Signs Date Time Temp Pulse Resp B/P (MAP) Pulse Ox O2 Delivery O2 Flow Rate FiO2 09/01/17 14:07 90 16 09/01/17 13:30 102/56 (71) 99 Room Air 09/01/17 09:21 99.3 Orders Orders Complete Blood Count With Diff (09/01/17 09:56) Comprehensive Metabolic Panel (09/01/17 09:56) Iv Access Insert/Monitor (09/01/17 09:56) Ecg Monitoring (09/01/17 09:56) Oximetry (09/01/17 09:56) Sodium Chloride 0.9% Flush (Ns Flush) (09/01/17 10:00) Ankle, Complete ([id number]) (09/01/17 ) Ankle, Complete ([id number]) (09/01/17 ) Foot, Complete ([id number]) (09/01/17 ) Foot, Complete ([id number]) (09/01/17 ) Morphine Inj (Morphine Inj) (09/01/17 10:00) Ondansetron Inj (Zofran Inj) (09/01/17 10:00) Gabapentin (Neurontin) (09/01/17 10:00) Blood Culture (09/01/17 11:29) Lactic Acid (09/01/17 11:29) Creatine Kinase (Cpk) (09/01/17 11:29) Sodium Chlor 0.9% 1000 Ml Inj (Ns 1000 M (09/01/17 11:30) Cta Runoff W Iv Contrast W 3d (09/01/17 ) Drug Screen, Random Urine (09/01/17 12:16) Us Leg Venous Doppler Bilat (09/01/17 ) Iohexol 350 Inj (Omnipaque 350 Inj) (09/01/17 13:07) Admit Order (Ed Use Only) (09/01/17 14:08) Labs Laboratory Tests Test 09/01/17 10:15 09/01/17 11:50 09/01/17 13:25 White Blood Count 19.0 TH/MM3 Red Blood Count 2.49 MIL/MM3 Hemoglobin 8.6 GM/DL Hematocrit 24.6 % Mean Corpuscular Volume 99.1 FL Mean Corpuscular Hemoglobin 34.4 PG Mean Corpuscular Hemoglobin Concent 34.7 % Red Cell Distribution Width 18.4 % Platelet Count 201 TH/MM3 Mean Platelet Volume 9.1 FL CBC Comment AUTO DIFF Differential Total Cells Counted 100 Neutrophils % (Manual) 77 % Band Neutrophils % 5 % Lymphocytes % 12 % Monocytes % 5 % Eosinophils % 1 % Neutrophils # (Manual) 15.6 TH/MM3 Differential Comment FINAL DIFF MANUAL Platelet Estimate NORMAL Platelet Morphology Comment NORMAL Target Cells 2+ Tear Drop Cells 1+ Keratocytes OCC Erythrocyte Sedimentation Rate 85 mm/hr Blood Urea Nitrogen 13 MG/DL Creatinine 0.53 MG/DL Random Glucose 97 MG/DL Total Protein 6.4 GM/DL Albumin 2.6 GM/DL Calcium Level 8.6 MG/DL Alkaline Phosphatase 278 U/L Aspartate Amino Transf (AST/SGOT) 175 U/L Alanine Aminotransferase (ALT/SGPT) 117 U/L Total Bilirubin 9.9 MG/DL Sodium Level 137 MEQ/L Potassium Level 3.7 MEQ/L Chloride Level 101 MEQ/L Carbon Dioxide Level 24.7 MEQ/L Anion Gap 11 MEQ/L Estimat Glomerular Filtration Rate 132 ML/MIN Total Creatine Kinase 8 U/L Lactic Acid Level 2.6 mmol/L Urine Opiates Screen POS Urine Barbiturates Screen NEG Urine Amphetamines Screen NEG Urine Benzodiazepines Screen NEG Urine Cocaine Screen NEG Urine Cannabinoids Screen POS MDM Medical Decision Making Medical Screen Exam Complete: Yes Emergency Medical Condition: Yes Medical Record Reviewed: Yes Differential Diagnosis Peripheral neuropathy, DVT, ischemia Narrative Course 12:15 PM blood test results are suggestive of significant leukocytosis with left shift. I trended her labs back from recent past and patient did have leukocytosis but this is worse. Given her tachycardia and slightly elevated body temperature I have ordered blood culture and lactic acid. I have also ordered CT angiogram of the lower extremities and ultrasound to rule out DVT. Awaiting for the test results. Patient is getting IV fluid bolus. She was given pain medication. 2:07 PM the ultrasound is negative for DVT. The CTA angiogram of the legs are pending to be resulted. CPKs within normal limit. Patient persistently remains tachycardic into 100s. I decided to admit her for further workup. I discussed the case with the hospitalist was accepted the patient. Procedures EKG Prior to Arrival: No Diagnosis Primary Impression: Bilateral leg pain Additional Impressions: Leukocytosis Qualified Codes: D72.829 - Elevated white blood cell count, unspecified Hepatitis Possible myositis Admitting Information Admitting Physician Requests: Pro Danielle MD September 01, 2017 09:45
[2017-09-01] MEDS ORDERED: ONDANSETRON HCL 4 MG/2 ML VIAL IV PUSH ONE (10:00)
[2017-09-01] MEDS ORDERED: GABAPENTIN 100 MG CAP PO ONE (10:00)
[2017-09-01] MEDS ORDERED: MORPHINE SULFATE 4 MG/ML INJ IV PUSH ONE (10:00)
[2017-09-01 10:30] LABS: HEMATOCRIT 24.6 % (35.0-46.0); HEMOGLOBIN 8.6 GM/DL (11.6-15.3); MEAN CELL VOLUME 99.1 FL (80.0-100.0); MEAN CORPUSCULAR HEMOGLOBIN 34.4 PG (27.0-34.0); MEAN CORPUSCULAR HGB CONC 34.7 % (32.0-36.0); MEAN PLATELET VOLUME 9.1 FL (7.0-11.0); PLATELET COUNT 201 TH/MM3 (150-450); RED BLOOD COUNT 2.49 MIL/MM3 (4.00-5.30); RED CELL DISTRIBUTION WIDTH 18.4 % (11.6-17.2)
[2017-09-01 10:44] LABS: CHLORIDE 101 MEQ/L (98-107); SODIUM (NA) 137 MEQ/L (136-145)
[2017-09-01] MEDS: SODIUM CHLORIDE 0.9% FLUSH 10 ML FLUSH IV FLUSH PRN ×4 (10:46→15:56)
[2017-09-01 10:47] LABS: ALBUMIN 2.6 GM/DL (3.4-5.0); BICARBONATE 24.7 MEQ/L (21.0-32.0); BLOOD UREA NITROGEN 13 MG/DL (7-18); CALCIUM 8.6 MG/DL (8.5-10.1); GLUCOSE,RANDOM 97 MG/DL (74-106)
[2017-09-01 10:50] LABS: ALT (GPT) 117 U/L (10-53); AST (GOT) 175 U/L (15-37); CREATININE 0.53 MG/DL (0.50-1.00); GLOMERULAR FILTRATION RATE 132 ML/MIN (>89)
[2017-09-01 10:52] LABS: TOTAL BILIRUBIN ADULT 9.9 MG/DL (0.2-1.0); TOTAL PROTEIN 6.4 GM/DL (6.4-8.2)
[2017-09-01 10:53] LABS: ALKALINE PHOSPHATASE 278 U/L (45-117)
--- NOTE | 2017-09-01 10:58 | RADRPT ---
EXAM DATE: 09/01/2017 10:52 AM EDT AGE/SEX: 32 years / Female INDICATIONS: Bilateral lower extremities with no know trauma. CLINICAL DATA: This is the patient's initial encounter. Patient reports that signs and symptoms have been present for 1 day and indicates a pain score of 10/10. MEDICAL/SURGICAL HISTORY: Cardiovascular disease. Pancreatitis. Hepatitis. HTN CIRRHOSIS To nsillectomy. COMPARISON: No prior [place] exams available for comparison. FINDINGS: The examination demonstrates soft tissue swelling around the ankle. The osseous structures are intact . No acute fracture is seen. No retained foreign body is identified. CONCLUSION: Soft tissue swelling. No acute fracture is identified. Electronically signed by: Lucius Santos MD 09/01/2017 10:56 AM EDT
--- NOTE | 2017-09-01 11:03 | RADRPT ---
EXAM DATE: 09/01/2017 11:01 AM EDT AGE/SEX: 32 years / Female INDICATIONS: Bilateral lower extremities pain without trauma. CLINICAL DATA: This is the patient's initial encounter. Patient reports that signs and symptoms have been present for 1 day and indicates a pain score of 10/10. MEDICAL/SURGICAL HISTORY: Pancreatitis. Heart disease. Hepatitis. HTN Cirrhosis Tonsillecto my. COMPARISON: No prior [place] exams available for comparison. FINDINGS: Bony structures are intact and in normal alignment. Joints are intact without dislocation or signifi cant arthropathy. Osseous density is normal. Soft tissues are unremarkable. No radiopaque foreign bodies seen. CONCLUSION: Unremarkable exam. Electronically signed by: Alphonso Mcallister MD 09/01/2017 11:02 AM EDT
[2017-09-01 11:06] LABS: BANDS 5 % (0-6); LYMPHOCYTES 12 % (9-44); MONOCYTES 5 % (0-8); NEUTROPHIL # MANUAL DIFF 15.6 TH/MM3 (1.8-7.7); POLYS (SEG NEUTROPHILS) 77 % (16-70)
[2017-09-01 11:07] LABS: KERATOCYTES OCC (NORMAL); TARGET CELLS 2+ (NORMAL); TEARDROP RBCS 1+ (NORMAL)
--- NOTE | 2017-09-01 11:11 | RADRPT ---
EXAM DATE: 09/01/2017 11:07 AM EDT AGE/SEX: 32 years / Female INDICATIONS: Bilateral lower extremity pain with no known trauma. CLINICAL DATA: This is the patient's initial encounter. Patient reports that signs and symptoms have been present for 1 day and indicates a pain score of 10/10. MEDICAL/SURGICAL HISTORY: Pancreatitis. Cirrhosis. Cardiovascular disease. HTN Hepatitis To nsillectomy. COMPARISON: No prior [place] exams available for comparison. FINDINGS: Bony structures are intact and in normal alignment. Osseous density is normal. Soft tissues are unre markable. No radiopaque foreign bodies seen. CONCLUSION: Negative for fracture or dislocation. Followup in 7-10 days is suggested if symptoms persist. Electronically signed by: Karri Santos MD 09/01/2017 11:10 AM EDT
--- NOTE | 2017-09-01 11:25 | RADRPT ---
EXAM DATE: 09/01/2017 11:16 AM EDT AGE/SEX: 32 years / Female INDICATIONS: Bilateral lower extremity pain with no history of trauma. CLINICAL DATA: This is the patient's initial encounter. Patient reports that signs and symptoms have been present for 1 day and indicates a pain score of 10/10. MEDICAL/SURGICAL HISTORY: Cirrhosis. Hepatitis. Pancreatitis. HTN Cardiovascular disease To nsillectomy. COMPARISON: No prior [place] exams available for comparison. FINDINGS: Bony structures are intact and in normal alignment. Osseous density is normal. Soft tissues are unre markable. No radiopaque foreign bodies seen. CONCLUSION: Negative Electronically signed by: Karri Santos MD 09/01/2017 11:23 AM EDT
[2017-09-01] MEDS ORDERED: SODIUM CHLOR 0.9% 1000 ML INJ 1,000 ML IV ONE (11:30)
--- NOTE | 2017-09-01 12:55 | RADRPT ---
EXAM DATE: 09/01/2017 12:50 PM EDT AGE/SEX: 32 years / Female INDICATIONS: Leg pain. CLINICAL DATA: This is the patient's initial encounter. Patient reports that signs and symptoms have been present for 2 days and indicates a pain score of 7/10. MEDICAL/SURGICAL HISTORY: Hypercholesterolemia. Gastroesophageal reflux disease. Cirrhosis. Hypertension. Asthma. Pituitary tumor. Post traumatic stress disorder. Neuropathy. Tonsillectomy. COMPARISON: No prior [place] exams available for comparison. TECHNIQUE: Venous ultrasound of both lower extremities was performed from the inguinal ligament to t he proximal calf. Real-time, color Doppler and spectral tracing, compression and augmentation techni ques were used. FINDINGS: Right Leg: There is normal compressibility of the deep venous system from the inguinal region to the proximal calf. No echogenic clot is seen in the lumen of the common femoral, femoral, popliteal, an d posterior tibial veins. There is a normal response of the venous system to proximal and distal aug mentation and respiration. Left Leg: There is normal compressibility of the deep venous system from the inguinal region to the proximal calf. No echogenic clot is seen in the lumen of the common femoral, femoral, popliteal, and posterior tibial veins. There is a normal response of the venous system to proximal and distal augm entation and respiration. CONCLUSION: 1. Negative exam with no evidence of deep venous thrombosis. Electronically signed by: Alphonso Mcallister MD 09/01/2017 12:54 PM EDT
[2017-09-01] MEDS ORDERED: IOHEXOL 350 MG/ML 10 ML VIAL (for RAD DIAG) IVCONTRAST ONE (13:07)
[2017-09-01] MEDS ORDERED: GADODIAMIDE PF 287 MG/ML 20 ML VIAL (for RAD MRI) IV PUSH ONE (14:10)
--- NOTE | 2017-09-01 14:25 | HHI.HP ---
[facility] Missy Valadez M.D. Admission Diagnosis Leukocytosis, bilateral leg pain, hepatitis, possible myositis Diagnoses: (1) Bilateral leg pain (2) Leukocytosis Chief Complaint: Bilateral leg pain Travel History International Travel<30 Days: No Contact w/Intl Traveler <30 Da: No Traveled to Known Affected Are: No Sepsis Criteria SIRS Criteria (2 or more): Heart rate over 90, WBC > 87041, < 4000 or > 10% bands Severe Sepsis (+one): Lactate >2 History of Present Illness Written by Katia Be, acting as scribe for Dr. Feng on 09/01/17 at 14:19. This is a pleasant 32-year-old female patient with a known medical history of alcoholic hepatitis, hyperlipidemia, cirrhosis, GERD who presented to the ED with complaints of bilateral lower extremity pain as well as weakness. Patient states that for the past 2 days she has complained of ankle pain characterized as sharp and shooting in nature, that progressively got worse and moved down to her feet, the pain intermittently comes and goes. States that she was unable to walk without significant pain today. Rates the pain a 10 out of 10 at its worst on pain scale. Patient took ibuprofen this morning with mild relief of pain, states that morphine IV helped the pain, currently rating the pain a 6 out of 10. Patient denies any trauma or injury to her legs. She states that she has been in her relative baseline prior to symptoms this morning. She does admit to subjective fevers and chills last week that have resolved since. Denies any abdominal pain, nausea, vomiting, diarrhea or dysuria. It should be noted that patient was recently discharged from the hospital diagnosed with alcoholic hepatitis. Patient states that her gastrointestinal symptoms and hepatitis have been stable. Patient follows with gastroenterology outpatient, was last seen 2 weeks ago with no changes to her medicines. PCP is Dr. Valadez. Review of Systems Constitutional: COMPLAINS OF: Fatigue, Fever, Chills, DENIES: Diaphoretic episodes Eyes: DENIES: Diplopia Respiratory: DENIES: Cough, Shortness of breath Cardiovascular: DENIES: Chest pain, Palpitations Gastrointestinal: DENIES: Abdominal pain, Black stools, Bloody stools, Constipation, Diarrhea, Nausea, Vomiting Musculoskeletal: COMPLAINS OF: Joint pain (Bilateral lower extremity pain), Muscle aches Integumentary: DENIES: Abnormal pigmentation Hematologic/lymphatic: DENIES: Bruising Psychiatric: DENIES: Anxiety Except as stated in HPI: all other systems reviewed are Neg Past Family Social History Past Medical History Pituitary adenoma Obesity Alcoholic hepatitis and cirrhosis Past Surgical History Tonsillectomy Liver biopsy Reported Medications Active Cholestyramine 4 Gm/Pkt Powd 4 Gm PO DAILY 14 Days 1 packet contains 4 grams of cholestyramine. Pantoprazole (Pantoprazole Sodium) 40 Mg Tab 40 Mg PO Q12HR 30 Days [Ursodiol] 300 MG Cap 300 Mg PO Q12HR 30 Days Effervescent Potassium Chloride 25 Meq (Potassium Bicarb/Potassium Chloride) 25 Meq Tab 25 Meq NG DAILY 30 Days Aldactone (Spironolactone) 25 Mg Tab 12.5 Mg PO DAILY 30 Days Midodrine 5 Mg Tab 15 Mg PO TID@07,12,17 30 Days Allergies: Coded Allergies: No Known Allergies (Unverified , 09/01/17) Active Ordered Medications Current Medications Medications (Trade) Dose Ordered Sig/Akua Route Start Time Stop Time Status Last Admin (NS Flush) 2 ml UNSCH PRN IV FLUSH 09/01/17 10:00 09/01/17 12:03 Family History Family history significant for hypertension. Social History Patient admits to smoking 1 cigarette per week. Patient denies any alcohol abuse. She states she smokes marijuana once a week. Physical Exam Vital Signs Vital Signs Date Time Temp Pulse Resp B/P (MAP) Pulse Ox O2 Delivery O2 Flow Rate FiO2 09/01/17 14:07 90 16 09/01/17 13:30 94 16 102/56 (71) 99 Room Air 09/01/17 12:30 102 16 09/01/17 12:30 97 16 101/60 (74) 99 Room Air 09/01/17 11:35 103 16 107/73 (84) 99 Room Air 09/01/17 11:00 16 09/01/17 10:23 103 16 114/67 (83) 99 Room Air 09/01/17 10:00 16 99 Room Air 5/30/18 09:43 109 16 09/01/17 09:21 99.3 112 18 114/53 (68) 99 Physical Exam GENERAL: Well-developed, well-nourished patient in NAD. SKIN: Warm and dry. No rash. Mild jaundice. HEAD: Normocephalic. Atraumatic. EYES: Pupils equal and round. No scleral icterus. No injection or drainage. ENT: No nasal bleeding or discharge. Mucous membranes pink and moist. NECK: Supple. Trachea midline. CARDIOVASCULAR: Regular rate and rhythm. S1, S2 noted. No murmur appreciated. RESPIRATORY: No accessory muscle use. Clear to auscultation. Breath sounds equal bilaterally. GASTROINTESTINAL: Abdomen soft, non-tender, nondistended. Round. Normoactive bowel sounds x4. MUSCULOSKELETAL: No obvious deformities. Extremities without clubbing, cyanosis , or edema. Compression stockings on. NEUROLOGICAL: Awake and alert. No obvious cranial nerve deficits. Motor grossly within normal limits. 4/5 muscle strength in lower extremities. 5/5 muscle strength in upper extremities. Normal speech. PSYCHIATRIC: Appropriate mood and affect; insight and judgment normal. Laboratory Laboratory Tests Test 09/01/17 10:15 09/01/17 11:50 09/01/17 13:25 White Blood Count 19.0 Red Blood Count 2.49 Hemoglobin 8.6 Hematocrit 24.6 Mean Corpuscular Volume 99.1 Mean Corpuscular Hemoglobin 34.4 Mean Corpuscular Hemoglobin Concent 34.7 Red Cell Distribution Width 18.4 Platelet Count 201 Mean Platelet Volume 9.1 CBC Comment AUTO DIFF Differential Total Cells Counted 100 Neutrophils % (Manual) 77 Band Neutrophils % 5 Lymphocytes % 12 Monocytes % 5 Eosinophils % 1 Neutrophils # (Manual) 15.6 Differential Comment FINAL DIFF MANUAL Platelet Estimate NORMAL Platelet Morphology Comment NORMAL Target Cells 2+ Tear Drop Cells 1+ Keratocytes OCC Blood Urea Nitrogen 13 Creatinine 0.53 Random Glucose 97 Total Protein 6.4 Albumin 2.6 Calcium Level 8.6 Alkaline Phosphatase 278 Aspartate Amino Transf (AST/SGOT) 175 Alanine Aminotransferase (ALT/SGPT) 117 Total Bilirubin 9.9 Sodium Level 137 Potassium Level 3.7 Chloride Level 101 Carbon Dioxide Level 24.7 Anion Gap 11 Estimat Glomerular Filtration Rate 132 Total Creatine Kinase 8 Lactic Acid Level 2.6 Urine Benzodiazepines Screen NEG Urine Cocaine Screen NEG Urine Cannabinoids Screen POS Date/Time Source Procedure Growth Status 09/01/17 11:50 Blood Peripheral Aerobic Blood Culture Pending Received 09/01/17 11:50 Blood Peripheral Anaerobic Blood Culture Pending Received Result Diagram: 09/01/17 1015 09/01/17 1015 Septic Shock Reassessment Septic shock perfusion: reassessment completed Caprini VTE Risk Assessment Caprini VTE Risk Assessment: No/Low Risk (score <= 1) Caprini Risk Assessment Model Point Value = 1 Point Value = 2 Point Value = 3 Point Value = 5 Age 41-60 Minor surgery BMI > 25 kg/m2 Swollen legs Varicose veins or History of unexplained or recurrent spontaneous Oral contraceptives or hormone replacement Sepsis (< 1 month) Serious lung disease, including pneumonia (< 1 month) Abnormal pulmonary function Acute myocardial infarction Congestive heart failure (< 1 month) History of inflammatory bowel disease Medical patient at bed rest Age 61-74 Arthroscopic surgery Major open surgery (> 45 min) Laparoscopic surgery (> 45 min) Malignancy Confined to bed (> 72 hours) Immobilizing plaster cast Central venous access Age >= 75 History of VTE Family history of VTE Factor V Leiden Prothrombin [id number] Lupus anticoagulant Anticardiolipin antibodies Elevated serum homocysteine Heparin-induced thrombocytopenia Other congenital or acquired thrombophilia Stroke (< 1 month) Elective arthroplasty Hip, pelvis, or leg fracture Acute spinal cord injury (< 1 month) Prophylaxis Regimen Total Risk Factor Score Risk Level Prophylaxis Regimen 0-1 Low Early ambulation 2 Moderate Order ONE of the following: *Sequential Compression Device (SCD) *Heparin 5000 units SQ BID 3-4 Higher Order ONE of the following medications: *Heparin 5000 units SQ TID *Enoxaparin/Lovenox 40 mg SQ daily (WT < 150 kg, CrCl > 30 mL/min) *Enoxaparin/Lovenox 30 mg SQ daily (WT < 150 kg, CrCl > 10-29 mL/min) *Enoxaparin/Lovenox 30 mg SQ BID (WT < 150 kg, CrCl > 30 mL/min) AND/OR *Sequential Compression Device (SCD) 5 or more Highest Order ONE of the following medications: *Heparin 5000 units SQ TID (Preferred with Epidurals) *Enoxaparin/Lovenox 40 mg SQ daily (WT < 150 kg, CrCl > 30 mL/min) *Enoxaparin/Lovenox 30 mg SQ daily (WT < 150 kg, CrCl > 10-29 mL/min) *Enoxaparin/Lovenox 30 mg SQ BID (WT < 150 kg, CrCl > 30 mL/min) AND *Sequential Compression Device (SCD) Assessment and Plan Assessment and Plan This is a pleasant 32-year-old female patient with a known medical history of alcoholic hepatitis, hyperlipidemia, cirrhosis, GERD who presented to the ED with complaints of bilateral lower extremity pain as well as weakness. Patient states that for the past 2 days she has complained of ankle pain characterized as sharp and shooting in nature, that progressively got worse and moved down to her feet, the pain intermittently comes and goes. Bilateral leg pain, unknown cause - Bilateral lower extremity ultrasound negative for DVT. CT angiogram of the legs pending. - Imaging of bilateral feet and ankles negative for any fractures or acute findings. - CPK within normal limits. Check ESR, CRP - PT consulted, input and recommendations pending. Out of bed as tolerated with assistance. - Morphine IV given in ED. Pain is better controlled. Toradol as needed for pain. - Supportive care. - Neurology consultation as needed Leukocytosis - Unknown source. White blood cell 19.0 with mild left band shift. Patient is tachycardic with heart rate in the 100s. Lactic acid 2.6. Afebrile. Monitor for infection. - Blood cultures pending follow growth. Will check UA. Follow. - Patient given 1 L NS bolus in ED. Will continue IV fluids. Ensure hydration. History of alcoholic hepatitis and cirrhosis Chronic normocytic, normochromic anemia Transaminitis secondary to above - Stable at this time. Supportive care. Will follow CBC. - Continue to encourage alcohol cessation. - Follows with gastroenterology outpatient. Last PRBC transfusion 09/01/17. Alcohol abuse: Encouraged cessation. DVT prophylaxis: SCDs. This note was transcribed by harrison Be. I, Dr. Doyle Feng personally performed the history, physical exam, and medical decision making; and confirmed the accuracy of the information in the transcribed note. Authenticated by Dr. Doyle Feng on 09/01/17 at 14:19. Code Status Full code Discussed Condition With Patient, ED physician Problem Qualifiers (1) Leukocytosis: Qualified Codes: D72.829 - Elevated white blood cell count, unspecified Katia Be September 01, 2017 14:25 Doyle Feng MD September 01, 2017 14:31
[2017-09-01] MEDS ORDERED: ACETAMINOPHEN 325 MG TAB PO PRN (14:45)
[2017-09-01] MEDS ORDERED: BISACODYL 10 MG SUPP RECTAL PRN (14:45)
[2017-09-01] MEDS ORDERED: NALOXONE HCL 0.4 MG/ML AMP IV PUSH PRN (14:45)
[2017-09-01] MEDS ORDERED: MAGNESIUM HYDROXIDE SUSP 30 ML CUP PO PRN (14:45)
[2017-09-01] MEDS ORDERED: ONDANSETRON HCL 4 MG/2 ML VIAL IVP PRN (14:45)
[2017-09-01] MEDS ORDERED: SENNOSIDES 8.6 MG TAB PO PRN (14:45)
--- NOTE | 2017-09-01 14:57 | RADRPT ---
EXAM DATE: 09/01/2017 1:52 PM EDT AGE/SEX: 32 years / Female INDICATIONS: Bilateral ankle pain. Jaundice. CLINICAL DATA: This is the patient's initial encounter. Patient reports that signs and symptoms have been present for 2 days and indicates a pain score of 7/10. MEDICAL/SURGICAL HISTORY: Cirrhosis. Hepatitis. Cardiovascular disease. Hypertension. Asthma. N one. RADIATION DOSE: 11.51 CTDI (mGy) COMPARISON: No prior [place] exams available for comparison. TECHNIQUE: Volumetric scanning was performed using a multi-row detector CT scanner during bolus infu gentry of 100 ml Omnipaque 350 (iohexol) nonionic water-soluble contrast as a single exam dose. The data was post processed with a variety of visualization algorithms including full volume maximum inte nsity projection, multi-planar sliding thin slab reformation, curved planar reformation, and surface rendering techniques. Using automated exposure control and adjustment of the mA and/or kV according to patient size, radiation dose was kept as low as reasonably achievable to obtain optimal diagnostic quality images. FINDINGS: Abdominal aorta: The celiac and SMA origins are widely patent. There are single renal arteries bilate rally. The renal arteries are widely patent. The infrarenal aorta is normal in caliber. The DEMARIO is wi umesh patent. The common iliac, internal iliac and external iliac circulation is widely patent throughout its cours e. Right leg: The common femoral, profunda femoral, superficial femoral, popliteal and trifurcation vess els are widely patent. Left leg: The common femoral, profunda femoral, superficial femoral, popliteal and trifurcation vesse ls are widely patent. CT source data: There is moderate hepatosplenomegaly. The spleen, pancreas, adrenals and kidneys are intact. There is ascites within the pelvis. No retroperitoneal adenopathy is seen. CONCLUSION: 1. Normal inflow and runoff to both lower extremities. 2. Hepatosplenomegaly. 3. There is a small amount of ascites within the pelvis. Electronically signed by: Lucius Santos MD 09/01/2017 2:56 PM EDT
[2017-09-01] MEDS ORDERED: KETOROLAC TROMETHAMINE 30 MG/ML (IVP) VIAL IV PUSH PRN (15:00)
[2017-09-01] MEDS: SODIUM CHLOR 0.9% 1000 ML INJ 1,000 ML IV SCH (15:11)
[2017-09-01] MEDS ORDERED: PILL SPLITTER OTHER PRN (16:30)
[2017-09-01] MEDS ORDERED: MIDODRINE 5 MG TAB PO SCH (17:00)
[2017-09-01] MEDS: GABAPENTIN 100 MG CAP PO SCH (17:28)
[2017-09-01] MEDS ORDERED: MIDO5TAB PO (17:41)
[2017-09-01] MEDS ORDERED: MELA1TAB18 PO (17:41)
[2017-09-01] MEDS: MIDODRINE 5 MG TAB PO SCH (17:58)
[2017-09-01] MEDS: SODIUM CHLORIDE 0.9% FLUSH 10 ML FLUSH IV FLUSH SCH (21:00)
[2017-09-01] MEDS: DOCUSATE SODIUM 50 MG/SENNA 8.6 MG TAB PO SCH (21:19)
[2017-09-01] MEDS: PANTOPRAZOLE SOD 40 MG DELAYED RELEASE TAB PO SCH (21:20)
[2017-09-01] MEDS: URSODIOL 300 MG CAP PO SCH (21:20)
[2017-09-01] MEDS: MELATONIN 5 MG TAB PO PRN (21:21)
[2017-09-01] MEDS: NORTRIPTYLINE HCL 25 MG CAP PO SCH (21:21)
[2017-09-01] MEDS: KETOROLAC TROMETHAMINE 30 MG/ML (IVP) VIAL IV PUSH PRN (21:21)
[2017-09-02] VITALS: BP 108/66; PULSE 105; RESP 20; TEMP 99.8; O2SAT 99
[2017-09-02] MEDS: SODIUM CHLOR 0.9% 1000 ML INJ 1,000 ML IV SCH ×3 (01:21→20:46)
[2017-09-02 06:46] LABS: BANDS 1 % (0-6); KERATOCYTES 1+ (NORMAL); LYMPHOCYTES 10 % (9-44); MYELOCYTES 1 % (0-0); POLYS (SEG NEUTROPHILS) 88 % (16-70); TEARDROP RBCS 1+ (NORMAL)
[2017-09-02 06:47] LABS: TARGET CELLS 1+ (NORMAL)
[2017-09-02 07:30] LABS: HEMOGLOBIN 7.5 GM/DL (11.6-15.3); MEAN PLATELET VOLUME 9.9 FL (7.0-11.0); NEUTROPHIL # MANUAL DIFF 11.8 TH/MM3 (1.8-7.7); PLATELET COUNT 128 TH/MM3 (150-450); WHITE BLOOD COUNT 13.1 TH/MM3 (4.0-11.0)
[2017-09-02 07:34] LABS: HEMATOCRIT 21.8 % (35.0-46.0); RED BLOOD COUNT 2.17 MIL/MM3 (4.00-5.30)
[2017-09-02 07:35] LABS: MEAN CELL VOLUME 100.3 FL (80.0-100.0); MEAN CORPUSCULAR HEMOGLOBIN 34.3 PG (27.0-34.0); MEAN CORPUSCULAR HGB CONC 34.2 % (32.0-36.0); RED CELL DISTRIBUTION WIDTH 18.5 % (11.6-17.2)
[2017-09-02] MEDS: KETOROLAC TROMETHAMINE 30 MG/ML (IVP) VIAL IV PUSH PRN ×3 (07:46→20:47)
[2017-09-02] MEDS: URSODIOL 300 MG CAP PO SCH ×2 (07:49→20:46)
[2017-09-02] MEDS: CHOLESTYRAMINE 4 GM PACKET PO SCH (07:49)
[2017-09-02] MEDS: POTASSIUM CHLORIDE 25 MEQ EFFERVESCENT TAB NG SCH (07:49)
[2017-09-02] MEDS: DOCUSATE SODIUM 50 MG/SENNA 8.6 MG TAB PO SCH ×2 (07:49→20:46)
[2017-09-02 07:50] VITALS: BP 108/57; PULSE 108; RESP 20; TEMP 99.7; O2SAT 100
[2017-09-02] MEDS: PANTOPRAZOLE SOD 40 MG DELAYED RELEASE TAB PO SCH ×2 (07:50→20:46)
[2017-09-02] MEDS: GABAPENTIN 100 MG CAP PO SCH ×3 (07:50→18:09)
[2017-09-02] MEDS: SODIUM CHLORIDE 0.9% FLUSH 10 ML FLUSH IV FLUSH SCH ×2 (07:50→20:46)
[2017-09-02] MEDS: SPIRONOLACTONE 25 MG TAB PO SCH (07:50)
[2017-09-02] MEDS: MIDODRINE 5 MG TAB PO SCH ×3 (07:57→18:09)
[2017-09-02 08:39] LABS: BILIRUBIN, URINE LARGE (NEG); BLOOD, URINE NEG (NEG); GLUCOSE,URINE NEG (NEG); KETONE, URINE NEG (NEG); NITRITE,URINE NEG (NEG); PH, URINE 6.5 (5.0-8.5); URINE LEUKOCYTE ESTERASE NEG (NEG)
[2017-09-02 09:02] LABS: URINE COLOR AMBER (YELLW/STRAW)
[2017-09-02 09:03] LABS: RBC, URINE 0-3 /hpf (0-3); SQUAMOUS EPITHELIAL CELL URINE 0-5 /hpf (0-5); WBC, URINE 0-2 /hpf (0-5)
--- NOTE | 2017-09-02 09:43 | HHI.PR ---
Subjective Remarks Follow-up bilateral polyneuropathy lower extremities September 02, 2017-patient seen and examined, reports some improvements of lower extremity numbness and weakness. However still requires assistance to move around. H&H dropping however patient denies any current GI bleed. Afebrile. Mom by the bedside. Objective Vitals Vital Signs Date Time Temp Pulse Resp B/P (MAP) Pulse Ox O2 Delivery O2 Flow Rate FiO2 09/02/17 07:50 99.7 108 20 108/57 (74) 100 09/02/17 00:00 99.8 105 20 108/66 (80) 99 09/01/17 20:00 100.1 96 20 108/72 (84) 99 09/01/17 16:00 99.3 97 20 119/66 (83) 98 09/01/17 15:50 09/01/17 15:20 97 16 98/58 (71) 98 Room Air 09/01/17 14:07 90 16 09/01/17 13:30 94 16 102/56 (71) 99 Room Air 09/01/17 12:30 102 16 09/01/17 12:30 97 16 101/60 (74) 99 Room Air 09/01/17 11:35 103 16 107/73 (84) 99 Room Air 09/01/17 11:00 16 09/01/17 10:23 103 16 114/67 (83) 99 Room Air 09/01/17 10:00 16 99 Room Air 09/01/17 09:43 109 16 I/O 09/01/17 09/01/17 09/01/17 09/02/17 09/02/17 09/02/17 07:00 15:00 23:00 07:00 15:00 23:00 Intake Total 1000 ml 1584 ml Output Total 400 ml Balance 600 ml 1584 ml Intake IV Total 1000 ml 1464 ml Lipid 120 ml Output Urine Total 400 ml # Voids 1 0 # Bowel Movements 0 Result Diagram: 09/02/17 0422 09/01/17 1015 Imaging Last Impressions Lower Extremity Ultrasound 09/01/17 0000 Signed Impressions: CONCLUSION: 1. Negative exam with no evidence of deep venous thrombosis. Foot X-Ray 09/01/17 0000 Signed Impressions: CONCLUSION: Negative for fracture or dislocation. Followup in 7-10 days is suggested if sym ptoms persist. Aorta w/Runoff CTA 09/01/17 0000 Signed Impressions: CONCLUSION: 1. Normal inflow and runoff to both lower extremities. 2. Hepatosplenomegaly. 3. There is a small amount of ascites within the pelvis. Ankle X-Ray 09/01/17 0000 Signed Impressions: CONCLUSION: Unremarkable exam. Objective Remarks GENERAL: NAD SKIN: Warm and dry. HEAD: Normocephalic. EYES: No scleral icterus. No injection or drainage. NECK: Supple, trachea midline. No JVD or lymphadenopathy. CARDIOVASCULAR: Regular rate and rhythm without murmurs, gallops, or rubs. RESPIRATORY: Breath sounds equal bilaterally. No accessory muscle use. GASTROINTESTINAL: Abdomen soft, non-tender, nondistended. MUSCULOSKELETAL: No cyanosis, or edema. BACK: Nontender without obvious deformity. No CVA tenderness. A/P Problem List: (1) Bilateral leg pain ICD Code: M79.604 - Pain in right leg; M79.605 - Pain in left leg Status: Acute (2) Leukocytosis ICD Code: D72.829 - Elevated white blood cell count, unspecified Status: Acute Assessment and Plan 32-year-old female with Bilateral polyneuropathy lower extremities Bilateral leg pain, unknown cause - Bilateral lower extremity ultrasound negative for DVT. CT angiogram of the legs negative. - Imaging of bilateral feet and ankles negative for any fractures or acute findings. - CPK within normal limits. Elevated ESR, CRP -We will consult neurology - PT to treat and eval - Morphine IV given in ED. Toradol as needed for pain. Continue Pamelor, Neurontin - Supportive care. Leukocytosis-improving - Unknown source. White blood cell 19.0 with mild left band shift. Lactic acid 2.6. Afebrile. Monitor for infection. - Blood cultures pending follow growth. UA pending. - Patient given 1 L NS bolus in ED. Will continue IV fluids. Ensure hydration. History of alcoholic hepatitis and cirrhosis Chronic normocytic, normochromic anemia Transaminitis secondary to above - Stable at this time. Supportive care. - Continue to encourage alcohol cessation. - Follows with gastroenterology outpatient. Last PRBC transfusion 09/01/17. Check H&H stat Alcohol abuse: Encouraged cessation. DVT prophylaxis: SCDs. Problem Qualifiers (1) Leukocytosis: Qualified Codes: D72.829 - Elevated white blood cell count, unspecified Pontey,Doyle MD September 02, 2017 09:43
[2017-09-02 10:05] LABS: HEMATOCRIT 22.7 % (35.0-46.0); HEMOGLOBIN 8.1 GM/DL (11.6-15.3)
[2017-09-02 12:50] VITALS: BP 109/64; PULSE 97; RESP 20; TEMP 98.9; O2SAT 98
[2017-09-02 15:50] VITALS: BP 105/61; PULSE 100; RESP 20; TEMP 99.5; O2SAT 100
[2017-09-02 20:00] VITALS: BP 107/68; PULSE 96; RESP 20; TEMP 98.2; O2SAT 100
[2017-09-02] MEDS: MELATONIN 5 MG TAB PO PRN (20:46)
[2017-09-02] MEDS: NORTRIPTYLINE HCL 25 MG CAP PO SCH (20:46)
[2017-09-03] VITALS: BP 103/59; PULSE 98; RESP 20; TEMP 99; O2SAT 97
[2017-09-03] MEDS: KETOROLAC TROMETHAMINE 30 MG/ML (IVP) VIAL IV PUSH PRN ×4 (03:39→23:50)
[2017-09-03 04:00] VITALS: BP 110/58; PULSE 104; RESP 20; TEMP 100.1; O2SAT 97
[2017-09-03] MEDS: SODIUM CHLOR 0.9% 1000 ML INJ 1,000 ML IV SCH ×3 (05:01→23:49)
[2017-09-03 08:00] VITALS: BP 101/58; PULSE 90; RESP 16; TEMP 98.8; O2SAT 99
[2017-09-03] MEDS: GABAPENTIN 100 MG CAP PO SCH ×3 (09:55→18:43)
[2017-09-03] MEDS: POTASSIUM CHLORIDE 25 MEQ EFFERVESCENT TAB NG SCH (09:56)
[2017-09-03] MEDS: MIDODRINE 5 MG TAB PO SCH ×3 (09:56→18:43)
[2017-09-03] MEDS: SPIRONOLACTONE 25 MG TAB PO SCH (09:56)
[2017-09-03] MEDS: CHOLESTYRAMINE 4 GM PACKET PO SCH (09:56)
[2017-09-03] MEDS: PANTOPRAZOLE SOD 40 MG DELAYED RELEASE TAB PO SCH ×2 (09:56→21:31)
[2017-09-03] MEDS: SODIUM CHLORIDE 0.9% FLUSH 10 ML FLUSH IV FLUSH SCH ×2 (09:59→21:31)
[2017-09-03] MEDS: DOCUSATE SODIUM 50 MG/SENNA 8.6 MG TAB PO SCH ×2 (10:05→21:31)
[2017-09-03] MEDS: URSODIOL 300 MG CAP PO SCH ×2 (10:06→21:31)
--- NOTE | 2017-09-03 10:06 | HHI.PR ---
Subjective Remarks Follow-up bilateral polyneuropathy lower extremities September 02, 2017-patient seen and examined, reports some improvements of lower extremity numbness and weakness. However still requires assistance to move around. H&H dropping however patient denies any current GI bleed. Afebrile. Mom by the bedside. September 03, 2017-patient seen and examined, complains of shooting and burning pain to bilateral lower extremities denies any motor weakness or numbness. She also complained of abdominal bloating and gas and requesting treatment for it. Patient spiked a temp earlier this morning. States she can't go home until the pain is resolved. Patient's mom is requesting that she be tested for sickle cell Objective Vitals Vital Signs Date Time Temp Pulse Resp B/P (MAP) Pulse Ox O2 Delivery O2 Flow Rate FiO2 09/03/17 04:00 100.1 104 20 110/58 (75) 97 09/03/17 00:00 99.0 98 20 103/59 (74) 97 09/02/17 20:00 98.2 96 20 107/68 (81) 100 09/02/17 15:50 99.5 100 20 105/61 (76) 100 09/02/17 12:50 98.9 97 20 109/64 (79) 98 I/O 09/02/17 09/02/17 09/02/17 09/03/17 09/03/17 09/03/17 07:00 15:00 23:00 07:00 15:00 23:00 Intake Total 1584 ml 536 ml 1600 ml 1580 ml Balance 1584 ml 536 ml 1600 ml 1580 ml Intake Oral 600 ml 480 ml IV Total 1464 ml 536 ml 1000 ml 1100 ml Lipid 120 ml # Voids 0 5 1 # Bowel Movements 0 2 Result Diagram: 09/02/17 0935 09/01/17 1015 Imaging Last Impressions Lower Extremity Ultrasound 09/01/17 0000 Signed Impressions: CONCLUSION: 1. Negative exam with no evidence of deep venous thrombosis. Foot X-Ray 09/01/17 0000 Signed Impressions: CONCLUSION: Negative for fracture or dislocation. Followup in 7-10 days is suggested if sym ptoms persist. Aorta w/Runoff CTA 09/01/17 0000 Signed Impressions: CONCLUSION: 1. Normal inflow and runoff to both lower extremities. 2. Hepatosplenomegaly. 3. There is a small amount of ascites within the pelvis. Ankle X-Ray 09/01/17 0000 Signed Impressions: CONCLUSION: Unremarkable exam. Objective Remarks GENERAL: NAD SKIN: Warm and dry. HEAD: Normocephalic. EYES: No scleral icterus. No injection or drainage. NECK: Supple, trachea midline. No JVD or lymphadenopathy. CARDIOVASCULAR: Regular rate and rhythm without murmurs, gallops, or rubs. RESPIRATORY: Breath sounds equal bilaterally. No accessory muscle use. GASTROINTESTINAL: Abdomen soft, non-tender, nondistended. MUSCULOSKELETAL: No cyanosis, or edema. BACK: Nontender without obvious deformity. No CVA tenderness. A/P Problem List: (1) Bilateral leg pain ICD Code: M79.604 - Pain in right leg; M79.605 - Pain in left leg Status: Acute (2) Leukocytosis ICD Code: D72.829 - Elevated white blood cell count, unspecified Status: Acute Assessment and Plan 32-year-old female with Bilateral polyneuropathy lower extremities Bilateral leg pain, unknown cause - Bilateral lower extremity ultrasound negative for DVT. CT angiogram of the legs negative. - Imaging of bilateral feet and ankles negative for any fractures or acute findings. - CPK within normal limits. Elevated ESR, CRP - Neurology pending - PT to treat and eval - Morphine IV given in ED. Toradol as needed for pain. Continue Pamelor, Neurontin - Supportive care. Leukocytosis-improving - Unknown source. White blood cell 19.0 with mild left band shift. Lactic acid 2.6. Afebrile. Monitor for infection. - Blood cultures NTD. UA negative - Continue IV fluids. History of alcoholic hepatitis and cirrhosis Chronic normocytic, normochromic anemia Transaminitis secondary to above - Stable at this time. Supportive care. - Continue to encourage alcohol cessation. - Follows with gastroenterology outpatient. Last PRBC transfusion 09/01/17. H& H currently stable Abdominal bloating/gas -Treated with Gas-X -Encourage ambulation Alcohol abuse: Encouraged cessation. DVT prophylaxis: SCDs. Problem Qualifiers (1) Leukocytosis: Qualified Codes: D72.829 - Elevated white blood cell count, unspecified Doyle Feng MD Sep 03, 2017 10:06
[2017-09-03 12:00] VITALS: BP 106/66; PULSE 98; RESP 16; TEMP 99.3; O2SAT 99
[2017-09-03] MEDS: SIMETHICONE 80 MG CHEWABLE TAB CHEW PRN ×2 (14:46→21:31)
[2017-09-03 16:00] VITALS: BP 120/70; PULSE 101; RESP 16; O2SAT 97
[2017-09-03] MEDS ORDERED: LORazepam 2 MG/ML VIAL IV PUSH ONE (17:00)
--- NOTE | 2017-09-03 17:15 | MB ---
cc: Eliel Franks MD, PhD DATE: 09/03/2017 REASON FOR CONSULTATION: Neuropathy. HISTORY OF PRESENT ILLNESS: This is a 32-year-old female who has a history of alcohol abuse with alcoholic hepatitis. She now complains of burning pain in her feet and legs, which started 2 days ago. She woke up with this from the knees down. She has a severe burning pain with numbness and some numbness in the hands, as well. She has some weakness of the legs and also difficulty ambulating, which may be due to the pain. PAST MEDICAL HISTORY: History of pituitary adenoma, alcoholic hepatitis and cirrhosis. MEDICATIONS: Currently are simethicone, cholestyramine, spironolactone, Protonix, Actigall, Toradol p.r.n. pain, gabapentin 100 mg daily, Pamelor 25 mg at bedtime, midodrine 5 mg daily, melatonin 10 mg at bedtime. NEUROLOGICAL EXAMINATION: VITAL SIGNS: Blood pressure 106/66, pulse 98, respiratory rate 16, temperature 99.3 degrees. HIGHER CORTICAL FUNCTION: Normal. CRANIAL NERVES: Intact. MOTOR: She has got give-way weakness in both legs, mainly to pain. She is able to activate with fairly good strength with encouragement. She has got normal strength in the upper extremities. There is no atrophy, no fasciculations. SENSORY: Exam is diminished distally in both lower extremities. REFLEXES: 1+ and symmetric with no ankle reflex, no Babinski signs present. IMAGING STUDIES: Ankle x-ray: Soft tissue swelling, no fractures identified. Aortogram CTA with runoff: No evidence of any peripheral vascular disease. Lower extremity ultrasound: No DVT. LABORATORY DATA: The white count is 13,100; hemoglobin 7.5; hematocrit 21.8%; platelet count is 128,000. Sedimentation rate is 85. Sodium 137, potassium 3.7, chloride 101, CO2 of 24.7. The BUN is 13, creatinine 0.53. GFR is 132, glucose 97, AST 175, ALT 117. CPK is 8. Alkaline phosphatase 278. Tox screen positive for cannabis and opiates. UA: pH is 6.5. IMPRESSION: Painful neuropathy. This could be related to alcohol abuse. However, with the high sedimentation rate, rule out possible vasculitic neuropathy. RECOMMENDATION: We will check additional labs including rheumatoid factor, serum protein electrophoresis, B12 level, ANTONINO. I also recommend a course of prednisone for the possibility of vasculitic neuropathy. I like to get an MRI of the spine as well as brain for further evaluation as well. Eliel Franks MD, PhD BRIAN/MARK , 04:50 PM , 05:14 PM
[2017-09-03] MEDS: predniSONE 20 MG TAB PO SCH (17:49)
[2017-09-03 20:00] VITALS: BP 102/62; PULSE 89; RESP 20; TEMP 97.7; O2SAT 94
[2017-09-03] MEDS: NORTRIPTYLINE HCL 25 MG CAP PO SCH (21:31)
[2017-09-03 22:17] LABS: RHEUMATOID FACTOR SCREEN NEGATIVE (NEGATIVE)
[2017-09-03] MEDS: SODIUM CHLORIDE 0.9% FLUSH 10 ML FLUSH IV FLUSH PRN (23:50)
[2017-09-03] MEDS: MELATONIN 5 MG TAB PO PRN (23:50)
[2017-09-04] VITALS: BP_SYST 103; BP_SYST 121; BP_DIAS 61; BP_DIAS 81; PULSE 88; RESP 18; RESP 20; TEMP 96.8; TEMP 97.5; O2SAT 100; O2SAT 96
[2017-09-04] MEDS: KETOROLAC TROMETHAMINE 30 MG/ML (IVP) VIAL IV PUSH PRN ×3 (05:36→18:17)
[2017-09-04] MEDS: SODIUM CHLORIDE 0.9% FLUSH 10 ML FLUSH IV FLUSH PRN (05:36)
[2017-09-04 07:50] VITALS: BP 103/69; PULSE 88; RESP 20; TEMP 96.6; O2SAT 98
[2017-09-04 08:18] LABS: HEMOGLOBIN 7.8 GM/DL (11.6-15.3); MEAN CELL VOLUME 100.7 FL (80.0-100.0); MEAN CORPUSCULAR HEMOGLOBIN 34.2 PG (27.0-34.0); MEAN PLATELET VOLUME 9.2 FL (7.0-11.0); PLATELET COUNT 152 TH/MM3 (150-450); RED BLOOD COUNT 2.28 MIL/MM3 (4.00-5.30); RED CELL DISTRIBUTION WIDTH 17.7 % (11.6-17.2); WHITE BLOOD COUNT 10.5 TH/MM3 (4.0-11.0)
[2017-09-04 08:45] LABS: BICARBONATE 19.5 MEQ/L (21.0-32.0); CALCIUM 7.9 MG/DL (8.5-10.1); CREATININE 0.46 MG/DL (0.50-1.00)
[2017-09-04] MEDS: SODIUM CHLORIDE 0.9% FLUSH 10 ML FLUSH IV FLUSH SCH ×2 (09:00→20:25)
[2017-09-04] MEDS: MIDODRINE 5 MG TAB PO SCH ×3 (09:12→18:17)
[2017-09-04] MEDS: DOCUSATE SODIUM 50 MG/SENNA 8.6 MG TAB PO SCH (09:12)
[2017-09-04] MEDS: SPIRONOLACTONE 25 MG TAB PO SCH (09:12)
[2017-09-04] MEDS: URSODIOL 300 MG CAP PO SCH ×2 (09:12→20:23)
[2017-09-04] MEDS: predniSONE 20 MG TAB PO SCH (09:12)
[2017-09-04] MEDS: GABAPENTIN 100 MG CAP PO SCH ×3 (09:13→18:17)
[2017-09-04] MEDS: PANTOPRAZOLE SOD 40 MG DELAYED RELEASE TAB PO SCH ×2 (09:13→20:24)
[2017-09-04] MEDS: POTASSIUM CHLORIDE 25 MEQ EFFERVESCENT TAB NG SCH (09:13)
[2017-09-04] MEDS: SIMETHICONE 80 MG CHEWABLE TAB CHEW PRN (09:35)
[2017-09-04] MEDS ORDERED: LORazepam 2 MG/ML VIAL IV PUSH ONE (09:45)
[2017-09-04 10:32] LABS: BANDS 7 % (0-6); LYMPHOCYTES 6 % (9-44); MONOCYTES 5 % (0-8); NEUTROPHIL # MANUAL DIFF 9.3 TH/MM3 (1.8-7.7); OVALOCYTES 1+ (NORMAL); POLYS (SEG NEUTROPHILS) 82 % (16-70); ROULEAUX PRESENT (NORMAL); TEARDROP RBCS 1+ (NORMAL)
--- NOTE | 2017-09-04 10:52 | HHI.PR ---
Subjective Remarks Patient seen and evaluated today in follow-up for neuropathy. Patient with known alcoholic liver disease. Still complaining of neuropathy and difficulty with ambulation however patient is ambulatory with DME and pain is controlled on current medications Objective Vitals Vital Signs Date Time Temp Pulse Resp B/P (MAP) Pulse Ox O2 Delivery O2 Flow Rate FiO2 09/04/17 07:50 96.6 88 20 103/69 (80) 98 09/04/17 06:36 20 09/04/17 00:00 96.8 88 20 103/61 (75) 96 09/03/17 20:00 97.7 89 20 102/62 (75) 94 09/03/17 16:00 101 16 120/70 (87) 97 09/03/17 12:00 99.3 98 16 106/66 (79) 99 I/O 09/03/17 09/03/17 09/03/17 09/04/17 09/04/17 09/04/17 07:00 15:00 23:00 07:00 15:00 23:00 Intake Total 1580 ml 900 ml 600 ml 2000 ml Balance 1580 ml 900 ml 600 ml 2000 ml Intake Oral 480 ml 600 ml 1000 ml IV Total 1100 ml 900 ml 1000 ml # Voids 1 3 4 # Bowel Movements 1 Result Diagram: 09/04/17 0650 09/04/17 0650 Imaging Last Impressions Lower Extremity Ultrasound 09/01/17 0000 Signed Impressions: CONCLUSION: 1. Negative exam with no evidence of deep venous thrombosis. Foot X-Ray 09/01/17 0000 Signed Impressions: CONCLUSION: Negative for fracture or dislocation. Followup in 7-10 days is suggested if sym ptoms persist. Aorta w/Runoff CTA 09/01/17 0000 Signed Impressions: CONCLUSION: 1. Normal inflow and runoff to both lower extremities. 2. Hepatosplenomegaly. 3. There is a small amount of ascites within the pelvis. Ankle X-Ray 09/01/17 0000 Signed Impressions: CONCLUSION: Unremarkable exam. Objective Remarks GENERAL: This is a well-nourished, well-developed patient, jaundiced CARDIOVASCULAR: Regular rate and rhythm without murmurs, gallops, or rubs. RESPIRATORY: Clear to auscultation. Breath sounds equal bilaterally. No wheezes , rales, or rhonchi. GASTROINTESTINAL: Abdomen soft, non-tender, nondistended. Normal active bowel sounds MUSCULOSKELETAL: Extremities without clubbing, cyanosis, or edema. NEURO: Alert & Oriented x4 to person, place, time, situation. Moves all ext x4 A/P Problem List: (1) Bilateral leg pain ICD Code: M79.604 - Pain in right leg; M79.605 - Pain in left leg Status: Acute Plan: Etiology is likely metabolic related to her alcohol dependency Bilateral lower extremity ultrasound negative for DVT. CT angiogram of the legs negative. Imaging of bilateral feet and ankles negative for any fractures or acute findings. Follow-up MRIs of spine Follow-up clinically with physical therapy and for DME as needed B12, iron normal Continue Neurontin and Toradol as needed (2) Leukocytosis ICD Code: D72.829 - Elevated white blood cell count, unspecified Status: Acute Plan: resolved (3) TSH elevation ICD Code: R94.6 - Abnormal results of thyroid function studies Plan: Follow-up T3 and T4 Patient will need outpatient follow-up for management long-term (4) Alcoholic hepatitis ICD Code: K70.10 - Alcoholic hepatitis without ascites Plan: Patient will continue on Aldactone (5) Positive blood cultures ICD Code: R78.81 - Bacteremia Plan: Pleomorphic gram-negative rods likely a contaminant No further workup indicated Assessment and Plan DC IV fluids DC [facility] Discharge Planning Pending imaging likely discharge home to continue with outpatient work Problem Qualifiers (1) Leukocytosis: Qualified Codes: D72.829 - Elevated white blood cell count, unspecified Gricelda Lopez MD Sep 04, 2017 10:52
[2017-09-04 11:38] LABS: ALBUMIN 2.2 GM/DL (3.4-5.0)
[2017-09-04 11:41] LABS: DIRECT BILIRUBIN ADULT 7.3 MG/DL (0.0-0.2)
[2017-09-04 11:43] LABS: INDIRECT BILIRUBIN 0.9 MG/DL (0.0-0.8); TOTAL BILIRUBIN ADULT 8.2 MG/DL (0.2-1.0); TOTAL PROTEIN 6.4 GM/DL (6.4-8.2)
[2017-09-04 11:50] VITALS: BP 113/73; PULSE 90; RESP 20; TEMP 98.7; O2SAT 97
[2017-09-04] MEDS ORDERED: GADODIAMIDE PF 287 MG/ML 20 ML VIAL (for RAD MRI) IVCONTRAST ONE (12:20)
--- NOTE | 2017-09-04 12:22 | RADRPT ---
EXAM DATE: 09/04/2017 12:20 PM EDT AGE/SEX: 32 years / Female INDICATIONS: . Numbness and tingling bilateral upper and lower extremities. CLINICAL DATA: This is the patient's initial encounter. Patient reports that signs and symptoms have been present for 1 day and indicates a pain score of 0/10. MEDICAL/SURGICAL HISTORY: None. Tonsillectomy. Liver biopsy COMPARISON: [facility], MRI BRAIN W & W/O CONTRAST, 09/04/2017. . TECHNIQUE: Multiplanar, multisequence MRI examination of the cervical spine was performed without co ntrast. FINDINGS: Vertebrae: Normal vertebral body height. Homogeneous marrow signal. Alignment: Normal. Cord: Normal configuration and signal. Post Fossa: The cerebellar tonsils are normal in position. C2-C3: The thecal sac has a normal configuration. There is no evidence of disc herniation or spinal canal stenosis. The neural foramina are patent bilaterally. C3-C4: The thecal sac has a normal configuration. There is no evidence of disc herniation or spinal canal stenosis. The neural foramina are patent bilaterally. C4-C5: The thecal sac has a normal configuration. There is no evidence of disc herniation or spinal canal stenosis. The neural foramina are patent bilaterally. C5-C6: The thecal sac has a normal configuration. There is no evidence of disc herniation or spinal canal stenosis. The neural foramina are patent bilaterally. C6-C7: The thecal sac has a normal configuration. There is no evidence of disc herniation or spinal canal stenosis. The neural foramina are patent bilaterally. C7-T1: No epidural impressions seen. CONCLUSION: 1. Normal exam. Electronically signed by: Carie Garzon MD 09/04/2017 12:21 PM EDT
--- NOTE | 2017-09-04 12:23 | RADRPT ---
EXAM DATE: 09/04/2017 12:20 PM EDT AGE/SEX: 32 years / Female INDICATIONS: . Numbness and tingling bilateral upper and lower extremities. CLINICAL DATA: This is the patient's initial encounter. Patient reports that signs and symptoms have been present for 1 day and indicates a pain score of 0/10. MEDICAL/SURGICAL HISTORY: None. Tonsillectomy. Liver biopsy. COMPARISON: No prior [facility] exams available for comparison. TECHNIQUE: Multiplanar, multisequence MRI of the lumbar spine was performed without contrast. Patie nt was scanned in a sitting position; neutral, flexion, and extension scans were performed in the sa gittal plane. FINDINGS: Vertebra: Homogeneous signal. Normal alignment. Conus: Normal level and configuration. T12-L1: The thecal sac has a normal diameter. No evidence of disc bulge or protrusion. The neural foramina are patent bilaterally. L1-L2: The thecal sac has a normal diameter. No evidence of disc bulge or protrusion. The neural foramina are patent bilaterally. L2-L3: The thecal sac has a normal diameter. No evidence of disc bulge or protrusion. The neural foramina are patent bilaterally. L3-L4: The thecal sac has a normal diameter. No evidence of disc bulge or protrusion. The neural foramina are patent bilaterally. L4-L5: The thecal sac has a normal diameter. No evidence of disc bulge or protrusion. The neural foramina are patent bilaterally. L5-S1: The thecal sac has a normal diameter. No evidence of disc bulge or protrusion. The neural foramina are patent bilaterally. CONCLUSION: 1. Normal exam. Electronically signed by: Carie Garzon MD 09/04/2017 12:22 PM EDT
--- NOTE | 2017-09-04 12:24 | RADRPT ---
EXAM DATE: 09/04/2017 12:20 PM EDT AGE/SEX: 32 years / Female INDICATIONS: . Numbness and tingling bilateral upper and lower extremities. CLINICAL DATA: This is the patient's initial encounter. Patient reports that signs and symptoms have been present for 1 day and indicates a pain score of 0/10. MEDICAL/SURGICAL HISTORY: None. Tonsillectomy. Liver biopsy. COMPARISON: No prior [facility] exams available for comparison. TECHNIQUE: Multiplanar, multisequence MRI of the thoracic spine was performed. FINDINGS: Vertebrae: Normal vertebral body height. Homogeneous marrow signal. Alignment: Normal. Cord: Normal position and configuration. T1-T2: The thecal sac has a normal diameter. No evidence of disc bulge or protrusion. T2-T3: The thecal sac has a normal diameter. No evidence of disc bulge or protrusion. T3-T4: The thecal sac has a normal diameter. No evidence of disc bulge or protrusion. T4-T5: The thecal sac has a normal diameter. No evidence of disc bulge or protrusion. T5-T6: The thecal sac has a normal diameter. No evidence of disc bulge or protrusion. T6-T7: The thecal sac has a normal diameter. No evidence of disc bulge or protrusion. T7-T8: The thecal sac has a normal diameter. No evidence of disc bulge or protrusion. T8-T9: The thecal sac has a normal diameter. No evidence of disc bulge or protrusion. T9-T10: The thecal sac has a normal diameter. No evidence of disc bulge or protrusion. T10-T11: The thecal sac has a normal diameter. No evidence of disc bulge or protrusion. T11-T12: The thecal sac has a normal diameter. No evidence of disc bulge or protrusion. T12-L1: The thecal sac has a normal diameter. No evidence of disc bulge or protrusion. CONCLUSION: 1. Normal exam Electronically signed by: Carie Garzon MD 09/04/2017 12:22 PM EDT
--- NOTE | 2017-09-04 12:34 | RADRPT ---
EXAM DATE: 09/04/2017 12:28 PM EDT AGE/SEX: 32 years / Female INDICATIONS: . Numbness and tingling bilateral upper and lower extremities. CLINICAL DATA: This is the patient's initial encounter. Patient reports that signs and symptoms have been present for 1 day and indicates a pain score of 0/10. MEDICAL/SURGICAL HISTORY: None. Tonsillectomy. Liver biopsy. COMPARISON: No prior [facility] exams available for comparison. TECHNIQUE: Multiplanar, multisequence examination of the brain was performed without and with 16 ml O mniscan (gadodiamide) contrast as a single exam dose. FINDINGS: Cerebrum: The ventricles are normal for age. No evidence of midline shift, mass lesion, hemorrhage or acute infarction. No extraaxial fluid collections are seen. The pituitary gland and suprasellar cistern are normal in configuration. White Matter: No significant signal abnormalities are seen in the white matter. Posterior Fossa: There is a single small focus of increased T2 signal identified within the central p ons which appears to be associated with focal restricted diffusion. Corresponding decreased signal id entified on T1 weighted imaging. No evidence of adjacent enhancement. The fourth ventricle is widely patent. Diffusion Imaging: Focal small area of restricted diffusion identified within the central julian on se servando 5 image 7. Extracranial: The visualized portions of the orbits and paranasal sinuses are unremarkable. Post Contrast: No abnormal areas of parenchymal or dural enhancement. No evidence of blood-brain ba rrier breakdown. CONCLUSION: 1. Focal punctate area of restricted diffusion and increased T2 signal identified within the central julian without evidence of adjacent enhancement or mass effect. Electronically signed by: Carie Garzon MD 09/04/2017 12:33 PM EDT
[2017-09-04] MEDS: CHOLESTYRAMINE 4 GM PACKET PO SCH (12:49)
[2017-09-04 13:43] LABS: FREE T3 0.83 PG/ML (2.18-3.98); FREE T4 1.34 NG/DL (0.76-1.46)
[2017-09-04 15:50] VITALS: BP 106/62; PULSE 89; RESP 20; TEMP 97.3; O2SAT 95
--- NOTE | 2017-09-04 17:07 | HHI.PR ---
Review/Management Diagnosis neuropathy--possible autoimmune, possibl eeffect of ETOH central julian diffusion abnormality on MRI--she has no clinical sx of pontine stroke. This may be a focal area of demyelination related to history of etoh abuse Plan taper prednisone slowly over 2 weeks recheck MRI brain Wednesday Diagnosis/Plan: Subjective Subjective Comments No acute events reported Pt reports mild improvement in BLE pain since starting prednisone. Active Medications Current Medications Medications (Trade) Dose Ordered Sig/Akua Route Start Time Stop Time Status Last Admin (NS Flush) 2 ml UNSCH PRN IV FLUSH 09/01/17 14:45 09/04/17 05:36 (NS Flush) 2 ml BID IV FLUSH 09/01/17 21:00 09/03/17 21:31 (Tylenol) 650 mg Q4H PRN PO 09/01/17 14:45 (Zofran Inj) 4 mg Q6H PRN IVP 09/01/17 14:45 (Narcan Inj) 0.4 mg UNSCH PRN IV PUSH 09/01/17 14:45 (Milk Of Magnnathan Liq) 30 ml Q12H PRN PO 09/01/17 14:45 (Senokot) 17.2 mg Q12H PRN PO 09/01/17 14:45 (Dulcolax Supp) 10 mg DAILY PRN RECTAL 09/01/17 14:45 (Questran 4 Gm Pkt) 4 gm DAILY PO 09/02/17 09:00 09/04/17 12:49 (Protonix) 40 mg Q12HR PO 09/01/17 21:00 09/04/17 09:13 (K-Lyte Cl Eff) 25 meq DAILY NG 09/02/17 09:00 09/04/17 09:13 (Aldactone) 12.5 mg DAILY PO 09/02/17 09:00 09/04/17 09:12 (Actigall) 300 mg Q12HR PO 09/01/17 21:00 09/04/17 09:12 (Pill Splitter) 1 ea UNSCH PRN OTHER 09/01/17 16:30 (Toradol Inj) 30 mg Q6H PRN IV PUSH 09/01/17 21:00 09/04/17 12:50 (Neurontin) 100 mg TID PO 09/01/17 18:00 09/04/17 15:00 (Pamelor) 25 mg HS PO 09/01/17 21:00 09/03/17 21:31 (Proamatine) 5 mg TID PO 09/01/17 18:00 09/04/17 15:00 (Melatonin) 10 mg HS PRN PO 09/01/17 17:45 09/03/17 23:50 (Mylicon Chew) 80 mg PCHS PRN CHEW 09/03/17 10:15 09/04/17 09:35 (Deltasone) 40 mg DAILY PO 09/03/17 17:00 09/04/17 09:12 Allergies Allergies Coded Allergies No Known Allergies (Unverified09/01/17) Exam I&O / VS 09/04/17 09/04/17 09/05/17 15:00 23:00 07:00 Intake Total 1000 ml Balance 1000 ml IV Total 1000 ml Vital Signs Date Time Temp Pulse Resp B/P (MAP) Pulse Ox O2 Delivery O2 Flow Rate FiO2 09/04/17 15:50 97.3 89 20 106/62 (77) 95 09/04/17 13:50 18 09/04/17 11:50 98.7 90 20 113/73 (86) 97 09/04/17 07:50 96.6 88 20 103/69 (80) 98 09/04/17 00:00 96.8 88 20 103/61 (75) 96 09/03/17 20:00 97.7 89 20 102/62 (75) 94 Exam Comments alert, speech normal Cn intact MOTOR 5/5 BUE and BLE Objective Radiology Results MRI brain--small area of restricted diffusion in mid julian MRI cervical, thoracic and lumbar spines normal Micro and Labs Laboratory Tests Test 09/03/17 19:52 09/04/17 06:50 09/04/17 10:47 09/04/17 12:59 Total Protein 5.7 6.4 Vitamin B12 Level 531 Thyroid Stimulating Hormone 3rd Gen 5.890 Human Chorionic Gonadotropin, Quant LESS THAN 1 Rheumatoid Factor Screen NEGATIVE Rheumatoid Factor Titer White Blood Count 10.5 Red Blood Count 2.28 Hemoglobin 7.8 Hematocrit 23.0 Mean Corpuscular Volume 100.7 Mean Corpuscular Hemoglobin 34.2 Mean Corpuscular Hemoglobin Concent 34.0 Red Cell Distribution Width 17.7 Platelet Count 152 Mean Platelet Volume 9.2 CBC Comment AUTO DIFF Differential Total Cells Counted 100 Neutrophils % (Manual) 82 Band Neutrophils % 7 Lymphocytes % 6 Monocytes % 5 Neutrophils # (Manual) 9.3 Differential Comment FINAL DIFF MANUAL Platelet Estimate NORMAL Platelet Morphology Comment NORMAL Tear Drop Cells 1+ Ovalocytes 1+ Rouleau PRESENT Blood Urea Nitrogen 17 Creatinine 0.46 Random Glucose 129 Calcium Level 7.9 Sodium Level 140 Potassium Level 3.8 Chloride Level 110 Carbon Dioxide Level 19.5 Anion Gap 11 Estimat Glomerular Filtration Rate 156 Total Bilirubin 8.2 Direct Bilirubin 7.3 Indirect Bilirubin 0.9 Aspartate Amino Transf (AST/SGOT) 69 Alanine Aminotransferase (ALT/SGPT) 59 Alkaline Phosphatase 270 Albumin 2.2 Free Thyroxine 1.34 Free Triiodothyronine (T3) pg/dL 0.83 Ammonia LESS THAN 10 Date/Time Source Procedure Growth Status 09/01/17 11:50 Blood Peripheral Aerobic Blood Culture - Preliminary NO GROWTH IN 3 DAYS Resulted 09/01/17 11:50 Blood Peripheral Anaerobic Blood Culture - Preliminary NO GROWTH IN 3 DAYS Resulted Eliel Franks MD PhD Sep 04, 2017 17:07
[2017-09-04] MEDS: NORTRIPTYLINE HCL 25 MG CAP PO SCH (20:24)
[2017-09-04 21:21] VITALS: BP 113/75; PULSE 85; RESP 18; TEMP 97.8; O2SAT 97
[2017-09-05] MEDS: MELATONIN 5 MG TAB PO PRN ×2 (00:05→20:27)
[2017-09-05] MEDS: KETOROLAC TROMETHAMINE 30 MG/ML (IVP) VIAL IV PUSH PRN ×4 (00:05→20:27)
[2017-09-05 07:50] VITALS: BP_SYST 114; BP_SYST 131; BP_DIAS 63; BP_DIAS 69; PULSE 91; PULSE 98; RESP 20; TEMP 96.9; TEMP 97.8; O2SAT 100; O2SAT 95
[2017-09-05] MEDS ORDERED: WALKER WHEELS/F1 MIS (07:56)
[2017-09-05] MEDS ORDERED: PRED10PA PO (07:56)
[2017-09-05] MEDS ORDERED: GABA100C4 PO (07:56)
[2017-09-05] MEDS ORDERED: FUROSEMIDE 20 MG/2 ML VIAL IV PUSH ONE (08:00)
[2017-09-05] MEDS: SODIUM CHLORIDE 0.9% FLUSH 10 ML FLUSH IV FLUSH SCH ×2 (08:04→20:40)
[2017-09-05] MEDS: CHOLESTYRAMINE 4 GM PACKET PO SCH (08:05)
[2017-09-05] MEDS: POTASSIUM CHLORIDE 25 MEQ EFFERVESCENT TAB NG SCH (08:05)
[2017-09-05] MEDS: MIDODRINE 5 MG TAB PO SCH ×3 (08:06→17:04)
[2017-09-05] MEDS: GABAPENTIN 100 MG CAP PO SCH ×3 (08:06→17:03)
[2017-09-05] MEDS: URSODIOL 300 MG CAP PO SCH ×2 (08:06→20:27)
[2017-09-05] MEDS: PANTOPRAZOLE SOD 40 MG DELAYED RELEASE TAB PO SCH ×2 (08:07→20:27)
[2017-09-05] MEDS: SPIRONOLACTONE 25 MG TAB PO SCH (08:07)
[2017-09-05] MEDS: predniSONE 20 MG TAB PO SCH (08:07)
[2017-09-05] MEDS: SIMETHICONE 80 MG CHEWABLE TAB CHEW PRN ×2 (08:12→20:43)
--- NOTE | 2017-09-05 09:02 | HHI.PR ---
Subjective Remarks Patient seen and evaluated today in follow-up for neuropathy and weakness. Overall improved. No new issues overnight. Plan discussed with neurology recommend follow-up MRI Wednesday along with inpatient continued rehab efforts. Discussed with patient and mom at bedside. Patient did experience some increased swelling overnight. MRI results discussed with patient and mom Objective Vitals Vital Signs Date Time Temp Pulse Resp B/P (MAP) Pulse Ox O2 Delivery O2 Flow Rate FiO2 09/04/17 21:21 97.8 85 18 113/75 (88) 97 09/04/17 15:50 97.3 89 20 106/62 (77) 95 09/04/17 13:50 18 09/04/17 11:50 98.7 90 20 113/73 (86) 97 I/O 09/04/17 09/04/17 09/04/17 09/05/17 09/05/17 09/05/17 07:00 15:00 23:00 07:00 15:00 23:00 Intake Total 2000 ml 1000 ml 480 ml Balance 2000 ml 1000 ml 480 ml Intake Oral 1000 ml 480 ml IV Total 1000 ml 1000 ml # Voids 4 3 3 # Bowel Movements 1 2 Result Diagram: 09/04/17 0650 09/04/17 0650 Imaging Last Impressions Thoracic Spine MRI 09/04/17 0000 Signed Impressions: CONCLUSION: 1. Normal exam Lumbar Spine MRI 09/04/17 Signed Impressions: CONCLUSION: 1. Normal exam. Cervical Spine MRI 09/04/17 Signed Impressions: CONCLUSION: 1. Normal exam. Brain MRI 09/04/17 Signed Impressions: CONCLUSION: 1. Focal punctate area of restricted diffusion and increased T2 signal identif ied within the central julian without evidence of adjacent enhancement or mass ef fect. Lower Extremity Ultrasound 09/01/17 Signed Impressions: CONCLUSION: 1. Negative exam with no evidence of deep venous thrombosis. Foot X-Ray 09/01/17 Signed Impressions: CONCLUSION: Negative for fracture or dislocation. Followup in 7-10 days is suggested if sym ptoms persist. Aorta w/Runoff CTA 09/01/17 Signed Impressions: CONCLUSION: 1. Normal inflow and runoff to both lower extremities. 2. Hepatosplenomegaly. 3. There is a small amount of ascites within the pelvis. Ankle X-Ray 09/01/17 Signed Impressions: CONCLUSION: Unremarkable exam. Objective Remarks GENERAL: This is a well-nourished, well-developed patient, jaundiced CARDIOVASCULAR: Regular rate and rhythm without murmurs, gallops, or rubs. RESPIRATORY: Clear to auscultation. Breath sounds equal bilaterally. No wheezes , rales, or rhonchi. GASTROINTESTINAL: Abdomen soft, non-tender, nondistended. Normal active bowel sounds MUSCULOSKELETAL: Extremities without clubbing, cyanosis, or edema. NEURO: Alert & Oriented x4 to person, place, time, situation. Moves all ext x4 A/P Problem List: (1) Bilateral leg pain ICD Code: M79.604 - Pain in right leg; M79.605 - Pain in left leg Status: Acute Plan: Polyneuropathy Etiology is likely metabolic related to her alcohol dependency Bilateral lower extremity ultrasound negative for DVT. CT angiogram of the legs negative. Imaging of bilateral feet and ankles negative for any fractures or acute findings. MRI of the spine unremarkable, small lesion in the brain which is likely unrelated to patient's symptoms Follow-up clinically with physical therapy and for DME as needed B12, iron normal Continue Neurontin and Toradol as needed Repeat MRI in a.m. (2) Leukocytosis ICD Code: D72.829 - Elevated white blood cell count, unspecified Status: Acute Plan: resolved (3) TSH elevation ICD Code: R94.6 - Abnormal results of thyroid function studies Plan: Follow-up T3 and T4 Patient will need outpatient follow-up for management long-term (4) Alcoholic hepatitis ICD Code: K70.10 - Alcoholic hepatitis without ascites Plan: Patient will continue on Aldactone Patient reports some edema will add a small dose of Lasix and follow output (5) Positive blood cultures ICD Code: R78.81 - Bacteremia Plan: Pleomorphic gram-negative rods likely a contaminant No further workup indicated (6) Anemia ICD Code: D64.9 - Anemia, unspecified Plan: Likely multifactorial due to chronic anemia and GI issues Discharge Planning Pending imaging likely discharge home in am to continue with outpatient work up pending mri in am Problem Qualifiers (1) Leukocytosis: Qualified Codes: D72.829 - Elevated white blood cell count, unspecified Gricelda Lopez MD Sep 05, 2017 09:02
[2017-09-05 11:50] VITALS: BP 116/61; PULSE 90; RESP 20; TEMP 97.1; O2SAT 98
[2017-09-05 15:50] VITALS: BP 103/62; PULSE 78; RESP 20; TEMP 96.2; O2SAT 100
[2017-09-05 20:00] VITALS: BP 109/72; PULSE 84; RESP 20; TEMP 97.6; O2SAT 98
[2017-09-05] MEDS: NORTRIPTYLINE HCL 25 MG CAP PO SCH (20:26)
[2017-09-06] VITALS: BP 118/72; PULSE 88; RESP 20; TEMP 97.4; O2SAT 98
[2017-09-06] MEDS: KETOROLAC TROMETHAMINE 30 MG/ML (IVP) VIAL IV PUSH PRN ×3 (02:43→15:32)
[2017-09-06 04:54] LABS: HEMATOCRIT 25.3 % (35.0-46.0); HEMOGLOBIN 8.5 GM/DL (11.6-15.3); MEAN CELL VOLUME 99.2 FL (80.0-100.0); MEAN CORPUSCULAR HEMOGLOBIN 33.6 PG (27.0-34.0); MEAN CORPUSCULAR HGB CONC 33.8 % (32.0-36.0); PLATELET COUNT 177 TH/MM3 (150-450); RED BLOOD COUNT 2.55 MIL/MM3 (4.00-5.30); RED CELL DISTRIBUTION WIDTH 18.1 % (11.6-17.2); WHITE BLOOD COUNT 11.3 TH/MM3 (4.0-11.0)
[2017-09-06 05:13] LABS: BANDS 5 % (0-6); LYMPHOCYTES 14 % (9-44); METAMYELOCYTES 1 % (0-1); MONOCYTES 4 % (0-8); NEUTROPHIL # MANUAL DIFF 9.2 TH/MM3 (1.8-7.7); POLYS (SEG NEUTROPHILS) 75 % (16-70)
[2017-09-06 08:00] VITALS: BP 113/74; PULSE 93; RESP 20; TEMP 97.3; O2SAT 100
[2017-09-06] MEDS: MIDODRINE 5 MG TAB PO SCH ×2 (08:28→13:09)
[2017-09-06] MEDS: PANTOPRAZOLE SOD 40 MG DELAYED RELEASE TAB PO SCH (08:29)
[2017-09-06] MEDS: GABAPENTIN 100 MG CAP PO SCH ×2 (08:29→13:09)
[2017-09-06] MEDS: predniSONE 20 MG TAB PO SCH (08:29)
[2017-09-06] MEDS: POTASSIUM CHLORIDE 25 MEQ EFFERVESCENT TAB NG SCH (08:29)
[2017-09-06] MEDS: URSODIOL 300 MG CAP PO SCH (08:29)
[2017-09-06] MEDS: CHOLESTYRAMINE 4 GM PACKET PO SCH (08:30)
[2017-09-06] MEDS: SODIUM CHLORIDE 0.9% FLUSH 10 ML FLUSH IV FLUSH SCH (08:30)
[2017-09-06] MEDS: SPIRONOLACTONE 25 MG TAB PO SCH (08:30)
[2017-09-06] MEDS: SIMETHICONE 80 MG CHEWABLE TAB CHEW PRN (08:38)
[2017-09-06] MEDS ORDERED: LORazepam 2 MG/ML VIAL IV PUSH ONE (09:45)
--- NOTE | 2017-09-06 11:37 | HHI.PR ---
Subjective Remarks Patient seen and evaluated in follow-up for neuropathy Stable on current regimen for pain Discharge plans discussed with patient and mom at bedside and they are in agreement MRI still pending today Objective Vitals Vital Signs Date Time Temp Pulse Resp B/P (MAP) Pulse Ox O2 Delivery O2 Flow Rate FiO2 09/06/17 08:00 97.3 93 20 113/74 (87) 100 09/06/17 00:00 97.4 88 20 118/72 (87) 98 09/05/17 20:00 97.6 84 20 109/72 (84) 98 09/05/17 15:50 96.2 78 20 103/62 (76) 100 09/05/17 11:50 97.1 90 20 116/61 (79) 98 I/O 09/05/17 09/05/17 09/05/17 09/06/17 09/06/17 09/06/17 07:00 15:00 23:00 07:00 15:00 23:00 Intake Total 900 ml 120 ml Balance 900 ml 120 ml Intake Oral 900 ml 120 ml # Voids 3 3 # Bowel Movements 2 Result Diagram: 09/06/17 0415 09/04/17 0650 Objective Remarks GENERAL: This is a well-nourished, well-developed patient, jaundiced CARDIOVASCULAR: Regular rate and rhythm without murmurs, gallops, or rubs. RESPIRATORY: Clear to auscultation. Breath sounds equal bilaterally. No wheezes , rales, or rhonchi. GASTROINTESTINAL: Abdomen soft, non-tender, nondistended. Normal active bowel sounds MUSCULOSKELETAL: Extremities without clubbing, cyanosis, or edema. NEURO: Alert & Oriented x4 to person, place, time, situation. Moves all ext x4 A/P Problem List: (1) Bilateral leg pain ICD Code: M79.604 - Pain in right leg; M79.605 - Pain in left leg Status: Acute Plan: Polyneuropathy Etiology is likely metabolic related to her alcohol dependency Bilateral lower extremity ultrasound negative for DVT. CT angiogram of the legs negative. Imaging of bilateral feet and ankles negative for any fractures or acute findings. MRI of the spine unremarkable, small lesion in the brain which is likely unrelated to patient's symptoms Follow-up clinically with physical therapy and for DME as needed B12, iron normal Continue Neurontin and Toradol as needed Repeat MRI (2) Leukocytosis ICD Code: D72.829 - Elevated white blood cell count, unspecified Status: Acute Plan: resolved (3) TSH elevation ICD Code: R94.6 - Abnormal results of thyroid function studies Plan: Follow-up T3 and T4 Patient will need outpatient follow-up for management long-term (4) Alcoholic hepatitis ICD Code: K70.10 - Alcoholic hepatitis without ascites Plan: Patient will continue on Aldactone Patient reports some edema will add a small dose of Lasix and follow output (5) Positive blood cultures ICD Code: R78.81 - Bacteremia Plan: Pleomorphic gram-negative rods likely a contaminant No further workup indicated (6) Anemia ICD Code: D64.9 - Anemia, unspecified Plan: Likely multifactorial due to chronic anemia and GI issues Discharge Planning Pending imaging dc home Problem Qualifiers (1) Leukocytosis: Qualified Codes: D72.829 - Elevated white blood cell count, unspecified Gricelda Lopez MD Sep 06, 2017 11:37
--- NOTE | 2017-09-06 11:37 | HHI.DCPOC ---
Discharge Care Plan Diagnosis: (1) Neuropathy (2) Alcoholic hepatitis Goals to Promote Your Health * To prevent worsening of your condition and complications * To maintain your health at the optimal level Directions to Meet Your Goals Take your medications as prescribed Follow your dietary instruction Follow activity as directed Keep your appointments as scheduled Take your immunizations and boosters as scheduled If your symptoms worsen call your PCP, if no PCP go to Urgent Care Center or Emergency Room Smoking is Dangerous to Your Health. Avoid second hand smoke Call the 24-hour hour crisis hotline for domestic abuse at Gricelda Lopez MD Sep 06, 2017 11:37
[2017-09-06] MEDS ORDERED: IBUP-232 PO (11:38)
[2017-09-06 12:00] VITALS: BP 115/58; PULSE 91; RESP 19; TEMP 97.5; O2SAT 98
--- NOTE | 2017-09-06 13:19 | RADRPT ---
EXAM DATE: 09/06/2017 1:04 PM EDT AGE/SEX: 32 years / Female INDICATIONS: . Abnormal MRI. CLINICAL DATA: This is the patient's initial encounter. Patient reports that signs and symptoms have been present for 3 days and indicates a pain score of 0/10. MEDICAL/SURGICAL HISTORY: None. Tonsillectomy. Liver biopsy. COMPARISON: [facility], MRI BRAIN W & W/O CONTRAST, 09/04/2017. . TECHNIQUE: Multiplanar, multisequence examination of the brain was performed without and with 16 ml O mniscan (gadodiamide) contrast as a single exam dose. FINDINGS: Cerebrum: The ventricles are normal for age. No evidence of midline shift, mass lesion, hemorrhage or acute infarction. No extraaxial fluid collections are seen. The pituitary gland and suprasellar cistern are normal in configuration. White Matter: Minimal white matter changes Posterior Fossa: The cerebellum and brainstem are intact. As seen previously, there is some increase d T2 FLAIR signal intensity within the julian centrally. No abnormal enhancement in this location follo wing gadolinium administration. The 4th ventricle is midline. The cerebellopontine angle is unremark able. The cerebellar tonsils are normal in position. Diffusion Imaging: No focal areas of restricted diffusion are seen. No evidence of acute infarction . Extracranial: The visualized portions of the orbits and paranasal sinuses are unremarkable. Post Contrast: No abnormal areas of parenchymal or dural enhancement. No evidence of blood-brain ba rrier breakdown. CONCLUSION: 1. Focal area of abnormal T2 signal intensity within the julian, unchanged from prior. Findings are no nspecific but may represent an old foci of demyelination. 2. No acute intracranial process. No MR findings of classic MS. Electronically signed by: Golden Day MD 09/06/2017 1:18 PM EDT
[2017-09-06] MEDS ORDERED: COMMODE 3-IN-11 MIS (14:57)
[2017-09-07 16:42] LABS: ALB/GLOB RATIO (SPE) 0.87 (1.39-2.23)
== END 2017-09-06 16:44 | disposition home or self-care (01) ==
LOC: PHED 09:05 → INTOOBSV 14:09 → PHEDA 14:09 → PH3A 16:01
PROVIDERS: ADMIT Family Medicine; ATTEND Family Medicine
DX: G62.9 Polyneuropathy, unspecified (principal); K70.10 Alcoholic hepatitis without ascites; M79.604 Pain in right leg; M79.605 Pain in left leg; D64.9 Anemia, unspecified; J45.909 Unspecified asthma, uncomplicated; I10 Essential (primary) hypertension; K86.1 Other chronic pancreatitis; D72.829 Elevated white blood cell count, unspecified; K70.30 Alcoholic cirrhosis of liver without ascites; E78.00 Pure hypercholesterolemia, unspecified; K21.9 Gastro-esophageal reflux disease without esophagitis; E78.5 Hyperlipidemia, unspecified; R53.1 Weakness; D35.2 Benign neoplasm of pituitary gland; E66.9 Obesity, unspecified; F41.9 Anxiety disorder, unspecified; F32.9 Major depressive disorder, single episode, unspecified
CPT/HCPCS: 70553; 72141; 72146; 72148; 73610; 73630; 75635; 80048; 80053; 80076; 80307; 81001; 82140; 82550; 82607; 83605; 84165; 84425; 84439; 84443; 84481; 84702; 85007; 85014; 85018; 85027; 85652; 86430; 86850; 86900; 86901; 87040; 87205; 93970; 96361; 96374; 96375; 96376; 97110; 97116; 97162; 99285; A9579; G0378; G8987; G8988; J1885; J1940; J2060; J2270; J2405; J7030; J7512; Q9967

== ENCOUNTER 2017-12-07 22:22 | Observation (INO) ==
--- NOTE | 2017-12-08 00:57 | ED ---
HPI General Chief complaint: Abdominal Pain Stated complaint: Yellow skin/abd pain/leg swelling [id number] Source: patient Mode of arrival: ambulatory Limitations: no limitations History of Present Illness HPI narrative: 32yo F with PMH of alcoholic hepatitis, HLD, cirrhosis, GERD presents to the ED with c/o turning jaundice for 1.5 weeks. Pt said she has also been having right upper abdominal pain. Said her legs are more swollen and she has gain significant weight in the last few days. Said she has intermittent fever for a few days. Also feels some sob and mild midsternal sharp chest pain. Pt said she has quit alcohol. Related Data Home Medications Medication Instructions Recorded Confirmed cholestyramine (with sugar) 1 unit PO DAILY 12/08/17 12/08/17 gabapentin 300 mg PO TID 12/08/17 12/08/17 melatonin 10 mg PO HS PRN 12/08/17 12/08/17 midodrine 5 mg PO TID 12/08/17 12/08/17 pantoprazole 40 mg PO DAILY 12/08/17 12/08/17 spironolactone 25 mg PO DAILY 12/08/17 12/08/17 ursodiol 300 mg PO BID 12/08/17 12/08/17 Allergies Allergy/AdvReac Type Severity Reaction Status Date / Time No Known Allergies Allergy Verified 12/08/17 03:36 Review of Systems ROS: all other systems reviewed are negative [facility] Medical History Medical History Alcohol abuse (Acute) Alcohol induced liver disorder (Acute) Social History Social History Substance History: Past History Second Hand Smoke Exposure: Yes Smoking Status: Current every day smoker Tobacco Type: Cigarettes How Often Do You Have a Drink Containing Alcohol: Never Recent Travel in [facility] within the Last 8 Weeks: No Recent Out of Country Travel within the Last 8 Weeks: No Exam Narrative Exam Narrative: GENERAL: 32yo F in mild distress. SKIN: Focused skin assessment warm/dry. HEAD: Atraumatic. Normocephalic. EYES: Pupils equal and round. No scleral icterus. No injection or drainage. ENT: No nasal bleeding or discharge. Mucous membranes pink and moist. NECK: Trachea midline. No JVD. CARDIOVASCULAR: Regular rate and rhythm. No murmur appreciated. RESPIRATORY: No accessory muscle use. Clear to auscultation. Breath sounds equal bilaterally. GASTROINTESTINAL: Abdomen soft, non-tender, nondistended. Hepatic and splenic margins not palpable. MUSCULOSKELETAL: No obvious deformities. No clubbing. No cyanosis. No edema. NEUROLOGICAL: Awake and alert. No obvious cranial nerve deficits. Motor grossly within normal limits. Normal speech. PSYCHIATRIC: Appropriate mood and affect; insight and judgment normal. Course Initial Documented Vital Signs Temperature 98.3 F 12/07/17 22:26 Pulse Rate 101 H 12/07/17 22:26 Respiratory Rate 18 12/07/17 22:26 Blood Pressure 110/62 12/07/17 22:26 Pulse Oximetry 100 12/07/17 22:26 Last Documented Vital Signs Temperature 98.1 F 12/08/17 04:00 Pulse Rate 94 H 12/08/17 04:00 Respiratory Rate 16 12/08/17 04:00 Blood Pressure 94/50 L 12/08/17 04:00 Pulse Oximetry 97 12/08/17 04:00 Critical Care Time Critical Care Time: Yes Total Critical Care Time: 40 Attestation: Aggregate critical care time was 40 minutes. Time to perform other separately billable procedures was not included in the critical care time. My time did not include minutes spent treating any other patients simultaneously or on activities that did not directly contribute to the patient's treatment. The services I provided to this patient were to treat and/or prevent clinically significant deterioration that could result in: cardiovascular collapse or . I provided critical care services requiring my management, as noted below: Chart data review, documentation time, medication orders and management, vital sign assessments/reviewing monitor data, ordering and reviewing lab tests, ordering and interpreting/reviewing x-rays and diagnostic studies, care of the patient and discussion of the patient with the admitting physicians. Medical Decision Making MDM Narrative Medical decision making narrative: 32yo F with worsening jaundice and swelling. Labs reviewed, wbc 12.1. H/H low at 9/26.0 but this is baseline. Troponin negative. Total bilirubin elevated at 22.5. Last bilirubin was 8.2 on 09/2017. It had been similar in 08/2017. Creatinine is elevated at 1.50 which is new. Last creatinine 0.46 from 09/2017. UA showed positive squamous and WBC 9-20. CXR showed underinflation with mild atelectasis at the lung bases. CT a/p showed marked hepatomegaly with steatosis. Portal hypertension. Anasarca. Pt is afebrile here but said she had fever at home. Will cover with ceftriaxone. Will admit for further evaluation and GI consult. Discussed with Dr. Johnson and accepted to her service. Medical Screen Exam Complete: Yes Emergency Medical Condition: Yes Differential Diagnosis Differential Diagnosis: Jaundice vs. cholangitis vs. hepatitis vs. pancreatitis vs. hepatorenal failure Lab Data Result diagrams: 12/08/17 01:16 12/08/17 01:16 POC Results POC Urine Results Negative Lab Results 12/08/17 12/08/17 12/08/17 Range/Units 01:16 01:16 01:16 CBC w Diff Slide review pending WBC 12.1 H (4.0-11.0) th/mm3 RBC 2.47 L (4.00-5.30) mil/mm3 Hgb 9.0 L (11.6-15.3) gm/dL Hct 26.0 L (35.0-46.0) % MCV 105.3 H (80.0-100.0) fL MCH 36.3 H (27.0-34.0) pg MCHC 34.5 (32.0-36.0) % RDW 14.6 (11.6-17.2) % Plt Count 172 (150-450) th/mm3 MPV 8.0 (7.0-11.0) fL WBC Differential Manual diff final Seg Neuts % (Manual) 82 H (16-70) % Band Neuts % (Manual) 5 (0-6) % Lymphocytes % (Manual) 11 (9-44) % Monocytes % (Manual) 2 (0-8) % Abs Neuts (Manual) 10.5 H (1.8-7.7) th/mm3 Differential Comment . Platelet Estimate Normal (Normal) Platelet Morphology Normal (Normal) PT 16.2 H (9.8-11.6) sec INR 1.6 Ratio APTT 37.1 H (24.3-30.1) sec Sodium 138 (136-145) meq/L Potassium 3.6 (3.5-5.1) meq/L Chloride 108 H (98-107) meq/L Carbon Dioxide 18.6 L (21.0-32.0) meq/L Anion Gap 11 (5-15) meq/L BUN 14 (7-18) mg/dL Creatinine 1.50 H (0.50-1.00) mg/dL Estimated GFR 40 L (>89) mL/min Random Glucose 95 (74-106) mg/dL Calcium 7.9 L (8.5-10.1) mg/dL Total Bilirubin 22.5 H (0.2-1.0) mg/dL Direct Bilirubin 18.3 H (0.0-0.2) mg/dL Indirect Bilirubin 4.2 H (0.0-0.8) mg/dL AST 164 H (15-37) U/L ALT 29 (10-53) U/L Alkaline Phosphatase 148 H (45-117) U/L Troponin I Less than 0.02 L (0.02-0.05) ng/mL Total Protein 7.0 (6.4-8.2) g/dL Albumin 1.6 L (3.4-5.0) g/dL Lipase 211 (73-393) U/L Urine Color (Yellw/Straw) Urine Clarity (Clear) Urine pH (5.0-8.5) Ur Specific [place] (1.002-1.035) Urine Protein (Neg-Trace) mg/dL Urine Glucose (UA) (Negative) mg/dL Urine Ketones (Negative) mg/dL Urine Occult Blood (Negative) Urine Nitrate (Negative) Urine Bilirubin (Negative) Urine Ictotest (Negative) Urine Urobilinogen (Less than 2) mg/dL Ur Leukocyte Esterase (Negative) Urine RBC (0-3) /hpf Urine WBC (0-5) /hpf Ur Squamous Epith Cells (0-5) /hpf Urine Bacteria (None) /hpf Ur Microscopic Review 12/08/17 Range/Units 02:05 CBC w Diff WBC (4.0-11.0) th/mm3 RBC (4.00-5.30) mil/mm3 Hgb (11.6-15.3) gm/dL Hct (35.0-46.0) % MCV (80.0-100.0) fL MCH (27.0-34.0) pg MCHC (32.0-36.0) % RDW (11.6-17.2) % Plt Count (150-450) th/mm3 MPV (7.0-11.0) fL WBC Differential Seg Neuts % (Manual) (16-70) % Band Neuts % (Manual) (0-6) % Lymphocytes % (Manual) (9-44) % Monocytes % (Manual) (0-8) % Abs Neuts (Manual) (1.8-7.7) th/mm3 Differential Comment Platelet Estimate (Normal) Platelet Morphology (Normal) PT (9.8-11.6) sec INR Ratio APTT (24.3-30.1) sec Sodium (136-145) meq/L Potassium (3.5-5.1) meq/L Chloride (98-107) meq/L Carbon Dioxide (21.0-32.0) meq/L Anion Gap (5-15) meq/L BUN (7-18) mg/dL Creatinine (0.50-1.00) mg/dL Estimated GFR (>89) mL/min Random Glucose (74-106) mg/dL Calcium (8.5-10.1) mg/dL Total Bilirubin (0.2-1.0) mg/dL Direct Bilirubin (0.0-0.2) mg/dL Indirect Bilirubin (0.0-0.8) mg/dL AST (15-37) U/L ALT (10-53) U/L Alkaline Phosphatase (45-117) U/L Troponin I (0.02-0.05) ng/mL Total Protein (6.4-8.2) g/dL Albumin (3.4-5.0) g/dL Lipase (73-393) U/L Urine Color Leela H (Yellw/Straw) Urine Clarity Cloudy H (Clear) Urine pH 6.5 (5.0-8.5) Ur Specific [place] 1.010 (1.002-1.035) Urine Protein 30 H (Neg-Trace) mg/dL Urine Glucose (UA) Negative (Negative) mg/dL Urine Ketones Trace H (Negative) mg/dL Urine Occult Blood Trace (Negative) Urine Nitrate Negative (Negative) Urine Bilirubin Large H (Negative) Urine Ictotest Positive H (Negative) Urine Urobilinogen 0.2 (Less than 2) mg/dL Ur Leukocyte Esterase Trace H (Negative) Urine RBC 0-3 (0-3) /hpf Urine WBC 9-20 H (0-5) /hpf Ur Squamous Epith Cells 6-10 H (0-5) /hpf Urine Bacteria Few H (None) /hpf Ur Microscopic Review Microscopic reviewed Imaging Data Radiologist's impression: Chest X-Ray 12/08/17 00:50 CONCLUSION: Underinflation with mild atelectasis at the lung bases. Otherwise, no acute cardiopulmonary abnormality is identified. Abdomen/Pelvis CT 12/08/17 01:45 CONCLUSION: 1. Marked hepatomegaly with steatosis. A recanalized paraumbilical vein and marked splenomegaly indicate portal hypertension. 2. There is a trace free fluid/ascites in the abdomen and pelvis. This is also likely related to portal hypertension. 3. Anasarca. ECG Data EKG Prior to Arrival: No Attestation: I personally reviewed and interpreted this ECG as follows: Interpretation: NSR 94bpm. Normal axis. TN interval 166. TWI III. No significant ST elevation. Discharge Plan Discharge Disposition Patient Disposition: 30 Still Patient Discharge Details Diagnosis: Hyperbilirubinemia Physicians Team ED Provider: Latoya Mistry Primary Care Provider: Missy Valadez Attending Provider: Lucho Leo Status ED Status: Left Department Discharge Information Discharge Date/Time: 12/08/17 04:27
[2017-12-08 01:27] LABS: Mean Corpuscular HGB Conc 34.5 % (32.0-36.0); Mean Corpuscular Hemoglobin 36.3 pg (27.0-34.0); Mean Corpuscular Volume 105.3 fL (80.0-100.0); Platelet Count 172 th/mm3 (150-450); Red Blood Count 2.47 mil/mm3 (4.00-5.30); Red Cell Distribution Width 14.6 % (11.6-17.2); White Blood Count 12.1 th/mm3 (4.0-11.0)
[2017-12-08 01:34] LABS: Chloride 108 meq/L (98-107); Potassium 3.6 meq/L (3.5-5.1); Sodium 138 meq/L (136-145)
[2017-12-08 01:37] LABS: Activated Partial Thrombo Time 37.1 sec (24.3-30.1); Albumin 1.6 g/dL (3.4-5.0); Anion Gap 11 meq/L (5-15); Calcium 7.9 mg/dL (8.5-10.1); Carbon Dioxide 18.6 meq/L (21.0-32.0); Glucose,Random 95 mg/dL (74-106); INR 1.6 Ratio; Lipase 211 U/L (73-393); Prothrombin Time 16.2 sec (9.8-11.6)
[2017-12-08 01:38] LABS: Blood Urea Nitrogen 14 mg/dL (7-18)
[2017-12-08 01:40] LABS: Alanine Aminotransferase 29 U/L (10-53); Aspartate Aminotransferase 164 U/L (15-37); Glomerular Filtration Rate 40 mL/min (>89)
[2017-12-08 01:43] LABS: Alkaline Phosphatase 148 U/L (45-117)
--- NOTE | 2017-12-08 01:45 | XR ---
EXAM DATE: 12/08/2017 1:32 AM EDT AGE/SEX: 32 years / Female INDICATIONS: Shortness of breath and chest pain. CLINICAL DATA: This is the patient's initial encounter. Patient reports that signs and symptoms have been present for 3 weeks and indicates a pain score of 3/10. MEDICAL/SURGICAL HISTORY: Asthma. None. COMPARISON: No prior exams available for comparison. FINDINGS: Portable AP view of the chest demonstrates a normal size cardiac silhouette. There is mild interstiti al prominence with likely mild atelectasis at the lung bases. No effusion, consolidation, or pneumoth orax is identified. The bones and soft tissues demonstrate no acute finding. CONCLUSION: Underinflation with mild atelectasis at the lung bases. Otherwise, no acute cardiopulmonary abnormali ty is identified. Electronically signed by: Zaheer Whiting MD 12/08/2017 1:43 AM EDT
[2017-12-08 01:46] LABS: Lymphocytes 11 % (9-44); Monocytes 2 % (0-8); Platelet Estimate Normal (Normal); Platelet Morphology Normal (Normal)
[2017-12-08 02:24] LABS: Bilirubin,Urine Large (Negative); Clarity,Urine Cloudy (Clear); Glucose,Urine (UA) Negative (Negative); Leukocyte Esterase,Urine Trace (Negative); Nitrite,Urine Negative (Negative); PH,Urine 6.5 (5.0-8.5); Urobilinogen,Urine 0.2 mg/dL (Less than 2)
[2017-12-08 02:26] LABS: Bacteria,Urine Few /hpf; Color,Urine Amber (Yellw/Straw); Ictotest,Urine Positive (Negative); RBC,Urine 0-3 /hpf (0-3)
--- NOTE | 2017-12-08 02:43 | CT ---
EXAM DATE: 12/08/2017 2:30 AM EDT AGE/SEX: 32 years / Female INDICATIONS: Nausea. Vomiting. Jaundice. CLINICAL DATA: This is the patient's initial encounter. Patient reports that signs and symptoms have been present for 3 weeks and indicates a pain score of 8/10. MEDICAL/SURGICAL HISTORY: None. None. RADIATION DOSE: 20.63 CTDI (mGy) COMPARISON: [facility], CT ABDOMEN & PELVIS W CONTRAST, 08/07/2017. . TECHNIQUE: Multiple contiguous axial images were obtained through the abdomen. Images were obtained using multiple row detector helical technique. Using automated exposure control and adjustment of the mA and/or kV according to patient size, radiation dose was kept as low as reasonably achievable to o btain optimal diagnostic quality images. DICOM format image data is available electronically for rev iew and comparison. FINDINGS: Lower chest: There is atelectasis at the lung bases. Hepatobiliary: There is hepatomegaly with the liver measuring 26.6 cm in length. There is diffuse low -density indicating steatosis. No focal lesion is appreciated on this noncontrast examination. No norma e duct dilatation is identified. No calcified gallstones are present. There is mild gallbladder wall thickening. Kidneys: No hydronephrosis, stone, or mass. Adrenal Glands: Within normal limits. Spleen: Spleen is enlarged measuring 21.5 cm in length. Pancreas: Within normal limits. Vascular: The aorta is nonaneurysmal. There is a recanalized paraumbilical vein. Bowel/Mesentery: Stomach and small bowel demonstrate no acute abnormality. There is mild mesenteric e katharina and trace free fluid in the abdomen and pelvis. No free air is seen. Abdominal Wall: There is anasarca. Retroperitoneum: No lymphadenopathy. Bladder: No wall thickening or mass. Reproductive: Within normal limits. Inguinal: No lymphadenopathy or hernia. Musculoskeletal: No acute osseous abnormality is identified. CONCLUSION: 1. Marked hepatomegaly with steatosis. A recanalized paraumbilical vein and marked splenomegaly marcin conrado portal hypertension. 2. There is a trace free fluid/ascites in the abdomen and pelvis. This is also likely related to por carmen hypertension. 3. Anasarca. Electronically signed by: Zaheer Whiting MD 12/08/2017 2:42 AM EDT
[2017-12-08] MEDS ORDERED: Bisacodyl 10 MG Supp RECTAL PRN (03:10)
[2017-12-08] MEDS: Senna/Docusate Sodium 8.6/50 MG Tablet PO SCH ×2 (08:30→21:11)
--- NOTE | 2017-12-08 09:41 | ECG ---
Date Performed: 12/08/2017 Time Performed: 01:05:33 PTAGE: 32 years EKG: Sinus rhythm NONSPECIFIC T-WAVE ABNORMALITY BORDERLINE ECG PREVIOUS TRACING : 08/01/2017 19.09 DOCTOR: Chele Jones Interpretating Date/Time 12/08/2017 09:40:23
--- NOTE | 2017-12-08 12:27 | P.DIET ---
Nutritional Evaluation Type of nutrition evaluation: initial Nutrition screening: Weight Loss > 10 lbs Subjective Oral Diet Tolerance Assessment Indicates: Nausea, Vomiting Subjective Comments: abdominal pain. Pt is currently NPO Objective - Diagnosis Hyperalbuminemia, Anasarca - Objective [place] body weight: 59.1 kg % IBW: 146 Body Weight Used for Calculations: IBW (59.1 kg) Energy Needs - Lower Range (kCal/kg): 28 Energy Needs - Upper Range (kCal/kg): 33 Lower Limit kCal/kg (kCals): 1,655 Upper Limit kCal/kg (kCals): 1,950 Lower Limit Protein Factor (Grams per Kg): 1.2 Upper Limit Protein Factor (Grams per Kg): 1.4 Lower Protein Needs (Protein): 71 Upper Protein Needs (Protein): 83 Dietitian Reviewed in Medical Record: Current diet, Curent medications, Intake & Output, Labs, Medical history Diet Order: NPO Objective Comments: PMH includes: Alcohol Abuse, Alcoholic epatits, hyperlipidemia, Cirrhosis, GERD Labs nclude: Creatinine 1.5, estGFR 40 Assessment Assessment: Pt is at nutritional risk r/t diagnosis and recent reported unintentional wt loss. Monitor NPO status. Monitor GI Recs. Labs reviewed-monitor renal labs. Dietitian will follow. Recommendations: 1. Monitor NPO status 2. Monitor GI Recs 3. Dietitian will follow Dietitian to Monitor: Lab values, Renal labs, Liver enzymes, Intake & Output, Weight change, Diet advancement, Medical course
[2017-12-08] MEDS ORDERED: Melatonin 5 MG Tablet PO PRN (12:54)
--- NOTE | 2017-12-08 13:22 | P.HP ---
History of Present Illness Primary Care Physician: Missy Valadez MD Chief Complaint: Jaundice History of Present Illness: 32-year-old female with known history of alcoholic end-stage liver disease, chronic anemia, hypotension who presented the hospital because of turning yellow. Patient is well-known to the hospital for a rather lengthy hospitalization back in August and in September. Patient was scheduled to have outpatient follow-up with GI for continued management. However patient has been noncompliant with outpatient follow-up. The patient states that she did follow-up with her prior medical doctor one time but has not seen him in 2-1/2 months. Patient states that due to scheduling and insurance reasons she has not follow-up with any sink cutter. Patient states that she had been taking her medications as she is supposed to, drinking fluids that she is supposed to but she noticed to have worsening yellow coloration, lower extremity swelling became worse and she states that she gained significant weight rather suddenly. Patient had workup done emergency department and found to have worsening bilirubin and because of that it was recommended by the ER physician that the patient be observed in the hospital for further evaluation and management. - Diagnosis (1) End stage liver disease (2) Hyperbilirubinemia Review of Systems All other systems reviewed negative except as stated in HPI Musculoskeletal: Reports muscle cramps, Reports muscle weakness PMFSH - History History Provided By: Patient - Medical History Medical History: Medical History (Last Updated 12/08/17 @ 13:09 by GABE East) Alcohol abuse Alcohol induced liver disorder History of pituitary adenoma - Surgical History Surgical History: Surgical History (Last Updated 12/08/17 @ 13:09 by GABE East) History of liver biopsy History of tonsillectomy - Family History Family History: Family History (Last Updated 12/08/17 @ 13:10 by GABE East) Other History of hypertension - Tobacco History Second Hand Smoke Exposure: Yes Tobacco Use In Past 30 Days: Yes Smoking Status: Current every day smoker Tobacco Type: Cigarettes - Alcohol History How Often Do You Have a Drink Containing Alcohol: Never - Substance Use History Substance History: Past History - Substance Use Type Alcohol Status: Early Remission Route Used: By Mouth Frequency: 8-10 shots of rum a night Comment: Drank because felt addicted at one point, but mostly drank "just because." - Travel History [facility] Travel [facility] the [facility] Within the Last 8 Weeks: No Recent Travel Out of the Country Within the Last 8 Weeks: No - Immunization History Tetanus Immunization: Unsure Hx Influenza Vaccine This Season: No Medications and Allergies Active Medications: Active Medications Al Hydroxide/Mg Hydroxide (Milk Of Magnesia Liq) 30 ml PO Q12H PRN PRN Reason: Mild Constipation Bisacodyl (Dulcolax Supp) 10 mg RECTAL DAILY PRN PRN Reason: SEVERE CONSITIPATION Gabapentin (Neurontin) 300 mg PO TID [facility] Ceftriaxone Sodium 1,000 mg/ (Sodium Chloride) 100 mls @ 200 mls/hr IV.SIG Q24H [facility] Albumin Human (Flexbumin 25% Inj) 50 mls @ 60 mls/hr IV.SIG Q12H [facility] Stop: 12/10/17 12:59 Lactulose (Lactulose Liq) 30 ml PO DAILY PRN PRN Reason: SEVERE CONSITIPATION Midodrine (Proamatine) 5 mg PO TID [facility] Non-Formulary Medication (Melatonin [Melatonin]) 10 mg PO HS PRN PRN Reason: sleep Ondansetron HCl (Zofran Inj) 4 mg IV.PUSH Q6H PRN PRN Reason: NAUSEA OR VOMITING Pantoprazole Sodium (Protonix) 40 mg PO DAILY [facility] Senna/Docusate Sodium (Beverly-Colace) 1 tab PO BID [facility] Last Admin: 12/08/17 08:30 Dose: 1 tab Sennosides (Senokot) 17.2 mg PO Q12H PRN PRN Reason: Moderate Constipation Spironolactone (Aldactone) 25 mg PO DAILY [facility] Allergies Allergy/AdvReac Type Severity Reaction Status Date / Time No Known Allergies Allergy Verified 12/08/17 03:36 Home Medications Medication Instructions Recorded Confirmed Type cholestyramine (with sugar) 1 unit PO DAILY 12/08/17 12/08/17 History gabapentin 300 mg PO TID 12/08/17 12/08/17 History melatonin 10 mg PO HS PRN 12/08/17 12/08/17 History midodrine 5 mg PO TID 12/08/17 12/08/17 History pantoprazole 40 mg PO DAILY 12/08/17 12/08/17 History spironolactone 25 mg PO DAILY 12/08/17 12/08/17 History ursodiol 300 mg PO BID 12/08/17 12/08/17 History Exam Vital signs: Vital Signs 12/07/17 22:26 12/08/17 04:00 12/08/17 08:00 Temperature 98.3 F 98.1 F 98.2 F Pulse Rate 101 H 94 H 89 Respiratory Rate 18 16 18 Blood Pressure 110/62 94/50 L 128/65 Pulse Oximetry 100 97 95 Intake & Output 12/07/17 12/08/17 12/08/17 18:59 06:59 18:59 Intake Total 100 / 100 Balance 100 / 100 Weight 86 kg Intake: IV 100 / 100 Rocephin Inj 1,000 MG In NS Inj 100 / 100 100 ML @ 200 mls/hr IV.SIG ONCE ONE Rx#:[id number] Other: # Voids 1 Weight On Admission 86 kg Narrative: GENERAL: Well-developed, well-nourished, in no acute distress. alert and orientated HEENT: Head is normocephalic without any lesions or masses noted. Facial features are symmetric. Eyes: Pupils equal round reactive to light. Extraocular muscles are intact. Conjunctivae and sclera are anicteric. Oropharyngeal: Pharynx without any erythema edema. Tongue is midline without deviation. Buccal mucosa is moist without any masses or lesions NECK: Supple without any masses. Trachea midline no deviation. No JVD, no bruits are appreciated CARDIAC: Regular rhythm, regular rate. S1/S2 are heard. No murmurs gallops or rubs. LUNGS: Clear to auscultation bilaterally. No wheeze, rhonchi or rales. No use of accessory muscles on inspiration or expiration. ABDOMEN: Soft, nontender. Nondistended. Bowel sounds heard in all 4 quadrants. No organomegaly or masses. Negative rebound, negative guarding EXTREMITIES: 2+ edema noted in bilateral lower extremities, pulses are equal bilaterally. No cyanosis or clubbing NEUROLOGY: Mood and affect appear appropriate. Cranial nerves II through XII grossly intact. Muscle strength 5/5 in upper and lower extremities bilaterally. Deep tendon reflexes are 2+ in upper and lower extremities bilaterally. SKIN: Patient has significant jaundice, patient does have multiple bruises Results - Labs CBC & Chem 7: 12/08/17 01:16 12/08/17 01:16 Labs: Laboratory Results - last 24 hr 12/08/17 12/08/17 12/08/17 01:16 01:16 01:16 CBC w Diff Slide review pending WBC 12.1 H RBC 2.47 L Hgb 9.0 L Hct 26.0 L MCV 105.3 H MCH 36.3 H MCHC 34.5 RDW 14.6 Plt Count 172 MPV 8.0 WBC Differential Manual diff final Seg Neuts % (Manual) 82 H Band Neuts % (Manual) 5 Lymphocytes % (Manual) 11 Monocytes % (Manual) 2 Abs Neuts (Manual) 10.5 H Differential Comment . Platelet Estimate Normal Platelet Morphology Normal PT 16.2 H INR 1.6 APTT 37.1 H Sodium 138 Potassium 3.6 Chloride 108 H Carbon Dioxide 18.6 L Anion Gap 11 BUN 14 Creatinine 1.50 H Estimated GFR 40 L Random Glucose 95 Calcium 7.9 L Total Bilirubin 22.5 H Direct Bilirubin 18.3 H Indirect Bilirubin 4.2 H AST 164 H ALT 29 Alkaline Phosphatase 148 H Troponin I Less than 0.02 L Total Protein 7.0 Albumin 1.6 L Lipase 211 Urine Color Urine Clarity Urine pH Ur Specific [place] Urine Protein Urine Glucose (UA) Urine Ketones Urine Occult Blood Urine Nitrate Urine Bilirubin Urine Ictotest Urine Urobilinogen Ur Leukocyte Esterase Urine RBC Urine WBC Ur Squamous Epith Cells Urine Bacteria Ur Microscopic Review 12/08/17 02:05 CBC w Diff WBC RBC Hgb Hct MCV MCH MCHC RDW Plt Count MPV WBC Differential Seg Neuts % (Manual) Band Neuts % (Manual) Lymphocytes % (Manual) Monocytes % (Manual) Abs Neuts (Manual) Differential Comment Platelet Estimate Platelet Morphology PT INR APTT Sodium Potassium Chloride Carbon Dioxide Anion Gap BUN Creatinine Estimated GFR Random Glucose Calcium Total Bilirubin Direct Bilirubin Indirect Bilirubin AST ALT Alkaline Phosphatase Troponin I Total Protein Albumin Lipase Urine Color Leela H Urine Clarity Cloudy H Urine pH 6.5 Ur Specific [place] 1.010 Urine Protein 30 H Urine Glucose (UA) Negative Urine Ketones Trace H Urine Occult Blood Trace Urine Nitrate Negative Urine Bilirubin Large H Urine Ictotest Positive H Urine Urobilinogen 0.2 Ur Leukocyte Esterase Trace H Urine RBC 0-3 Urine WBC 9-20 H Ur Squamous Epith Cells 6-10 H Urine Bacteria Few H Ur Microscopic Review Microscopic reviewed - Imaging Impressions Chest X-Ray 12/08/17 00:50 CONCLUSION: Underinflation with mild atelectasis at the lung bases. Otherwise, no acute cardiopulmonary abnormality is identified. Abdomen/Pelvis CT 12/08/17 01:45 CONCLUSION: 1. Marked hepatomegaly with steatosis. A recanalized paraumbilical vein and marked splenomegaly indicate portal hypertension. 2. There is a trace free fluid/ascites in the abdomen and pelvis. This is also likely related to portal hypertension. 3. Anasarca. Caprini VTE Risk Assessment Caprini VTE Risk Assessment: No/Low Risk (score <= 1) VTE Pharmacological Exception Reason: Coagulopathy,INR elevated Caprini Risk Assessment Model: Point Value = 1 Point Value = 2 Point Value = 3 Point Value = 5 Age 41-60 Minor surgery BMI > 25 kg/m2 Swollen legs Varicose veins or History of unexplained or recurrent spontaneous Oral contraceptives or hormone replacement Sepsis (< 1 month) Serious lung disease, including pneumonia (< 1 month) Abnormal pulmonary function Acute myocardial infarction Congestive heart failure (< 1 month) History of inflammatory bowel disease Medical patient at bed rest Age 61-74 Arthroscopic surgery Major open surgery (> 45 min) Laparoscopic surgery (> 45 min) Malignancy Confined to bed (> 72 hours) Immobilizing plaster cast Central venous access Age >= 75 History of VTE Family history of VTE Factor V Leiden Prothrombin [id number] Lupus anticoagulant Anticardiolipin antibodies Elevated serum homocysteine Heparin-induced thrombocytopenia Other congenital or acquired thrombophilia Stroke (< 1 month) Elective arthroplasty Hip, pelvis, or leg fracture Acute spinal cord injury (< 1 month) Prophylaxis Regimen: Total Risk Factor Score Risk Level Prophylaxis Regimen 0-1 Low Early ambulation 2 Moderate Order ONE of the following: *Sequential Compression Device (SCD) *Heparin 5000 units SQ BID 3-4 Higher Order ONE of the following medications: *Heparin 5000 units SQ TID *Enoxaparin/Lovenox 40 mg SQ daily (WT < 150 kg, CrCl > 30 mL/min) *Enoxaparin/Lovenox 30 mg SQ daily (WT < 150 kg, CrCl > 10-29 mL/min) *Enoxaparin/Lovenox 30 mg SQ BID (WT < 150 kg, CrCl > 30 mL/min) AND/OR *Sequential Compression Device (SCD) 5 or more Highest Order ONE of the following medications: *Heparin 5000 units SQ TID (Preferred with Epidurals) *Enoxaparin/Lovenox 40 mg SQ daily (WT < 150 kg, CrCl > 30 mL/min) *Enoxaparin/Lovenox 30 mg SQ daily (WT < 150 kg, CrCl > 10-29 mL/min) *Enoxaparin/Lovenox 30 mg SQ BID (WT < 150 kg, CrCl > 30 mL/min) AND *Sequential Compression Device (SCD) Assessment and Plan - Assessment (1) End stage liver disease Code(s): K72.90 - Hepatic failure, unspecified without coma Status: Acute (2) Hyperbilirubinemia Code(s): E80.6 - Other disorders of bilirubin metabolism Status: Acute - Plan End-stage alcohol liver disease with hyperbilirubinemia -[facility] discriminant factor 43.7, poor prognosis -Start prednisolone 40 mg daily for 4 weeks -Continue monitor liver enzymes, bilirubin -Patient has been noncompliant with outpatient follow-up with sink cutter. Counseled patient extensively that it is imperative that she follow with a sink cutter due to her liver disease. 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 -Laboratory studies do indicate severe hypoalbuminemia -We will continue patient's spironolactone -We will give albumin 25%, 12.5 g twice daily for 2 days Renal insufficiency -Continue monitor renal function -Avoid nephrotoxins Peripheral neuropathy -Continue home medications -Physical therapy evaluation Hypotension -Continue midodrine DVT prevention -Sequential compression devices -Avoid chemical prophylaxis secondary to coagulopathy from liver disease
[2017-12-08] MEDS: Spironolactone 25 MG Tablet PO SCH (13:44)
[2017-12-08] MEDS: Albumin Human 25% Inj 50 ML IV.SIG SCH (13:45)
[2017-12-08] MEDS: Gabapentin 300 MG Capsule PO SCH ×2 (13:45→17:33)
[2017-12-08] MEDS: prednisoLONE 10 MG ODT TAB PO SCH (13:45)
[2017-12-09] MEDS: Albumin Human 25% Inj 50 ML IV.SIG SCH ×2 (02:08→12:29)
[2017-12-09 06:31] LABS: Chloride 108 meq/L (98-107); Potassium 3.6 meq/L (3.5-5.1); Sodium 139 meq/L (136-145)
[2017-12-09 06:36] LABS: Albumin 1.6 g/dL (3.4-5.0); Anion Gap 12 meq/L (5-15); Blood Urea Nitrogen 19 mg/dL (7-18); Calcium 7.7 mg/dL (8.5-10.1); Carbon Dioxide 19.3 meq/L (21.0-32.0); Glucose,Random 92 mg/dL (74-106)
[2017-12-09 06:39] LABS: Alanine Aminotransferase 25 U/L (10-53); Aspartate Aminotransferase 118 U/L (15-37); Glomerular Filtration Rate 34 mL/min (>89)
[2017-12-09 06:40] LABS: Hematocrit 21.2 % (35.0-46.0); Mean Corpuscular HGB Conc 35.3 % (32.0-36.0); Mean Corpuscular Hemoglobin 36.7 pg (27.0-34.0); Mean Corpuscular Volume 104.2 fL (80.0-100.0); Mean Platelet Volume 8.4 fL (7.0-11.0); Platelet Count 124 th/mm3 (150-450); Red Blood Count 2.03 mil/mm3 (4.00-5.30); Red Cell Distribution Width 15.1 % (11.6-17.2); White Blood Count 8.9 th/mm3 (4.0-11.0)
[2017-12-09 06:49] LABS: Hemoglobin 7.5 gm/dL (11.6-15.3)
[2017-12-09 06:50] LABS: Alkaline Phosphatase 140 U/L (45-117); Total Protein 6.1 g/dL (6.4-8.2)
[2017-12-09 07:35] LABS: Lymphocytes 14 % (9-44); Monocytes 4 % (0-8)
[2017-12-09 07:36] LABS: Platelet Morphology Normal (Normal)
[2017-12-09] MEDS: Senna/Docusate Sodium 8.6/50 MG Tablet PO SCH ×2 (08:46→21:08)
[2017-12-09] MEDS: prednisoLONE 10 MG ODT TAB PO SCH (08:46)
[2017-12-09] MEDS: Spironolactone 25 MG Tablet PO SCH (08:47)
[2017-12-09] MEDS: Gabapentin 300 MG Capsule PO SCH ×3 (08:47→17:35)
--- NOTE | 2017-12-09 10:42 | P.PN ---
Subjective Interval history: 32-year-old female who is seen and examined today for follow-up on end-stage liver disease, hyperbilirubinemia. Patient resting comfortably bed. Does admit that swelling has significantly improved after the initiation of albumin, prednisolone. Patient requesting a consultation with her GI physician. I did discuss and counseled patient extensively on her diet, protein malnutrition. Vital signs are stable. Patient remains afebrile. Physical Exam Vital signs: Vital Signs 12/08/17 12:00 12/08/17 16:00 12/08/17 20:00 Temperature 98.3 F 97.9 F 97 F L Pulse Rate 86 83 75 Respiratory Rate 18 18 20 Blood Pressure 90/55 L 90/55 L 93/51 L Pulse Oximetry 97 97 98 12/09/17 00:00 12/09/17 07:37 Temperature 97.7 F 98.5 F Pulse Rate 79 80 Respiratory Rate 20 20 Blood Pressure 81/52 L 94/47 L Pulse Oximetry 94 L 94 L Intake & Output 12/08/17 12/09/17 12/09/17 18:59 06:59 18:59 Intake Total 630 / 630 50 / 50 Balance 630 / 630 50 / 50 Weight 87.1 kg Intake: IV 50 / 50 50 / 50 Flexbumin 25% Inj 50 ML @ 60 50 / 50 50 / 50 mls/hr IV.SIG Q12H JENNIFER Rx#: [id number] Oral 580 / 580 0 / 0 Other: # Voids 3 0 # Bowel Movements 1 Narrative: GENERAL: Well-developed, well-nourished, in no acute distress. alert and orientated HEENT: Head is normocephalic without any lesions or masses noted. Facial features are symmetric. Eyes:Extraocular muscles are intact. Conjunctivae and sclera are anicteric. NECK: Supple without any masses. Trachea midline no deviation. No JVD, CARDIAC: Regular rhythm, regular rate. S1/S2 are heard. No murmurs gallops or rubs. LUNGS: Clear to auscultation bilaterally. No wheeze, rhonchi or rales. No use of accessory muscles on inspiration or expiration. ABDOMEN: Soft, nontender. Nondistended. Bowel sounds heard in all 4 quadrants. No organomegaly or masses. Negative rebound, negative guarding EXTREMITIES: 1+ edema noted in bilateral lower extremities, pulses are equal bilaterally. No cyanosis or clubbing NEUROLOGY: Mood and affect appear appropriate. Cranial nerves II through XII grossly intact. Moving all extremities, speech is clear SKIN: Patient has significant jaundice, patient does have multiple bruises Results - Labs CBC & Chem 7: 12/09/17 05:50 12/09/17 05:50 Laboratory Results - last 24 hr 12/09/17 12/09/17 05:50 05:50 CBC w Diff Slide review pending WBC 8.9 RBC 2.03 L Hgb 7.5 L Hct 21.2 L MCV 104.2 H MCH 36.7 H MCHC 35.3 RDW 15.1 Plt Count 124 L MPV 8.4 WBC Differential Manual diff final Seg Neuts % (Manual) 77 H Band Neuts % (Manual) 4 Lymphocytes % (Manual) 14 Monocytes % (Manual) 4 Basophils % (Manual) 1 Abs Neuts (Manual) 7.2 Differential Comment . Platelet Estimate Low L Platelet Morphology Normal Sodium 139 Potassium 3.6 Chloride 108 H Carbon Dioxide 19.3 L Anion Gap 12 BUN 19 H Creatinine 1.70 H Estimated GFR 34 L Random Glucose 92 Calcium 7.7 L Total Bilirubin 20.2 H AST 118 H ALT 25 Alkaline Phosphatase 140 H Total Protein 6.1 L D Albumin 1.6 L Assessment and Plan - Assessment (1) End stage liver disease Code(s): K72.90 - Hepatic failure, unspecified without coma Status: Acute (2) Hyperbilirubinemia Code(s): E80.6 - Other disorders of bilirubin metabolism Status: Acute - Plan End-stage alcohol liver disease with hyperbilirubinemia -[facility] discriminant factor 43.7, poor prognosis -Continue prednisolone 40 mg daily for 4 weeks -Continue monitor liver enzymes, bilirubin, which appear to be improving -Patient has been noncompliant with outpatient follow-up with special agent [facility]. Counseled patient extensively that it is imperative that she follow with a special agent [facility] due to her liver disease. -Patient is requesting consult with her special agent [facility] Dr. Marmolejo Coagulopathy from liver disease -No significant change or worsening since her last hospitalization 4 months ago Lower extremity edema, improving -Laboratory studies do indicate severe hypoalbuminemia -Continue patient's spironolactone -Continue albumin 25%, 12.5 g twice daily for 2 days Renal insufficiency -Continue monitor renal function -Avoid nephrotoxins Peripheral neuropathy -Continue home medications -Physical therapy evaluation Hypotension -Continue midodrine Severe protein malnutrition -Dietitian consulted DVT prevention -Sequential compression devices -Avoid chemical prophylaxis secondary to coagulopathy from liver disease
--- NOTE | 2017-12-09 22:14 | XR ---
EXAM DATE: 12/09/2017 10:08 PM EDT AGE/SEX: 32 years / Female INDICATIONS: Left hand, 4th digit pain. CLINICAL DATA: This is the patient's initial encounter. Patient reports that signs and symptoms have been present for 1 day and indicates a pain score of 5/10. MEDICAL/SURGICAL HISTORY: None. None. COMPARISON: [facility], WRIST LEFT COMPLETE ([id number]), 08/06/2011. . FINDINGS: Minimal irregularity involving the dorsal aspect of the proximal portion of the left fourth middle ph alanx raising the possibility of tiny nondisplaced avulsion fracture. Clinical correlation is recomme nded. CONCLUSION: Minimal irregularity involving the dorsal aspect of the proximal portion of the left fourth middle ph alanx raising the possibility of tiny nondisplaced avulsion fracture. Clinical correlation is recomme nded. Electronically signed by: Giacomo Holguin MD 12/09/2017 10:13 PM EDT
--- NOTE | 2017-12-09 22:55 | MB ---
cc: Marjorie Oswald MD DATE: 12/09/2017 REASON FOR REFERRAL: Elevated liver function tests. Thank you for the consultation. HISTORY OF PRESENT ILLNESS: A 32-year-old lady who is known to have end-stage liver disease secondary to alcohol. She was here in August when she was admitted for alcohol hepatitis. The patient had at that time a GI bleed. She had an upper endoscopy and colonoscopy by Dr. Marmolejo which showed AVM, hemorrhoids, diverticulosis, gastritis, no active bleeding at that time. She had cautery of the AVM. The patient also was severely jaundiced. Liver biopsy was consistent with alcoholic liver disease and steatohepatitis secondary to alcohol with bridging fibrosis. The patient used to be a heavy drinker with a large amount of vodka on a daily basis until September. Since then, she was not drinking. She was doing okay, but not well and then she started having significant nausea and jaundice a few days ago. She still has some occasional bright red blood from the hemorrhoids and she came to the hospital because of that. The patient stated that she became severely jaundiced and she was admitted because of that. Currently, the patient in bed and seems to be comfortable. She said she had significant swelling of her legs, which she takes Aldactone for that. She was taking Lasix, but she stopped because of hypotension. REVIEW OF SYSTEMS: All 12 points negative except for HPI. PAST SURGICAL HISTORY: Significant for liver biopsy, tonsillectomy, upper endoscopy, colonoscopy. PAST MEDICAL HISTORY: Significant for end-stage liver disease, alcohol use, steatohepatitis, pituitary gland adenoma. FAMILY HISTORY: Significant for hypertension. SOCIAL HISTORY: Positive for tobacco. She stopped drinking a few months ago. No drugs, according to her. No travel. MEDICATIONS: Reviewed in the chart. ALLERGIES: NO KNOWN DRUG ALLERGIES. PHYSICAL EXAMINATION: GENERAL: Alert, oriented, in no acute distress. VITAL SIGNS: Stable. No fever at this time. HEENT: Pupils round and reactive to light. Severe scleral icterus. NECK: Supple. CHEST: Clear to auscultation and percussion. CARDIAC: Regular rate and rhythm. No murmur or gallop at this time. ABDOMEN: Soft, nondistended and nontender except in the right upper quadrant. EXTREMITIES: 1+ edema. No clubbing or cyanosis. NEUROLOGIC: Alert, oriented. No focal abnormalities. PSYCHOLOGIC: Appropriate. SKIN: Clear but significantly jaundiced. LABORATORY DATA: White count 8.9, hemoglobin 7.5, platelets 124. INR 1.6. AST 118, ALT 25, alkaline phosphatase 114. Lipase 211. CT scan, marked hepatomegaly with steatosis, splenomegaly, trace ascites, anasarca. The patient has chronic anemia even from previous admissions, so this is not new to her. Also, her platelets are getting lower than before. Liver enzymes, total bilirubin last admission was 8.2. It was higher when she first came to the hospital and gradually going down, but now it has been severely elevated in the last few days. ASSESSMENT AND PLAN: A 32-year-old lady with end-stage liver disease, steatohepatitis with alcoholic liver disease. The patient stated that she is not drinking even though her AST is severely more related and most likely this is fatty liver with alcohol-induced abnormality and jaundice. The patient was started on steroids by the primary team. We will continue that. The patient has some blood in the stool, most likely from hemorrhoids. She had a recent endoscopy and colonoscopy and CBC is stable. We will monitor that and give her packed RBCs as needed. Continue diuretics. Overall, a very poor prognosis with her young age and significant disease. MD LUIS Fuller/gem , 10:12 PM , 10:26 PM
[2017-12-10] MEDS: Albumin Human 25% Inj 50 ML IV.SIG SCH (00:32)
[2017-12-10 07:58] LABS: Hematocrit 25.9 % (35.0-46.0); Mean Corpuscular HGB Conc 34.7 % (32.0-36.0); Mean Corpuscular Hemoglobin 36.3 pg (27.0-34.0); Mean Corpuscular Volume 104.7 fL (80.0-100.0); Mean Platelet Volume 8.2 fL (7.0-11.0); Platelet Count 168 th/mm3 (150-450); Red Blood Count 2.47 mil/mm3 (4.00-5.30); Red Cell Distribution Width 14.3 % (11.6-17.2)
[2017-12-10 08:00] LABS: Chloride 108 meq/L (98-107); Potassium 4.3 meq/L (3.5-5.1); Sodium 138 meq/L (136-145)
[2017-12-10 08:04] LABS: Albumin 1.7 g/dL (3.4-5.0); Anion Gap 13 meq/L (5-15); Blood Urea Nitrogen 25 mg/dL (7-18); Calcium 7.5 mg/dL (8.5-10.1); Carbon Dioxide 17.5 meq/L (21.0-32.0); Glucose,Random 91 mg/dL (74-106)
[2017-12-10 08:07] LABS: Alanine Aminotransferase 21 U/L (10-53); Aspartate Aminotransferase 88 U/L (15-37); Glomerular Filtration Rate 37 mL/min (>89)
[2017-12-10 08:09] LABS: Total Protein 6.3 g/dL (6.4-8.2)
[2017-12-10 08:10] LABS: Alkaline Phosphatase 140 U/L (45-117)
[2017-12-10 08:31] LABS: Eosinophils 1 % (0-4); Lymphocytes 3 % (9-44); Monocytes 3 % (0-8)
[2017-12-10] MEDS: prednisoLONE 10 MG ODT TAB PO SCH (11:42)
[2017-12-10] MEDS: Senna/Docusate Sodium 8.6/50 MG Tablet PO SCH (11:42)
[2017-12-10] MEDS: Gabapentin 300 MG Capsule PO SCH ×2 (11:42→12:57)
[2017-12-10] MEDS: Spironolactone 25 MG Tablet PO SCH (11:42)
--- NOTE | 2017-12-10 11:51 | P.DS ---
Date of admission: 12/08/17 03:10 Primary care physician: Missy Valadez MD Attending physician on discharge: Alphonso Knight Anticipated date of discharge: 12/10/17 Brief History from admission: 32-year-old female with known history of alcoholic end-stage liver disease, chronic anemia, hypotension who presented the hospital because of turning yellow. Patient is well-known to the hospital for a rather lengthy hospitalization back in August and in September. Patient was scheduled to have outpatient follow-up with GI for continued management. However patient has been noncompliant with outpatient follow-up. The patient states that she did follow-up with her prior medical doctor one time but has not seen him in 2-1/2 months. Patient states that due to scheduling and insurance reasons she has not follow-up with any chief pilot. Patient states that she had been taking her medications as she is supposed to, drinking fluids that she is supposed to but she noticed to have worsening yellow coloration, lower extremity swelling became worse and she states that she gained significant weight rather suddenly. Patient had workup done emergency department and found to have worsening bilirubin and because of that it was recommended by the ER physician that the patient be observed in the hospital for further evaluation and management. DS: Diagnosis - Discharge Diagnosis (1) End stage liver disease Status: Acute (2) Hyperbilirubinemia Status: Acute DS: Medications - Discharge Medications Prescriptions: midodrine 15 mg PO TID #270 tab prednisolone sodium phosphate 40 mg PO DAILY #120 tab DS: Summary Hospital Course: This is a rather unfortunate 32-year-old female with end-stage liver disease due to alcohol. Due to the patient's age and extensiveness of the disease prognosis is very poor at this time. Apparently patient has been trying to follow-up with primary medical doctor as well as chief pilot since her discharge back in September. Patient states that she has been unsuccessful a in arranging any outpatient follow-up and she came back to the hospital because of worsening lower extremity edema. Workup was performed and patient was found to have significant protein malnutrition, dietary was consulted for evaluation. Been quite extensive amount of time discussing with the patient her medical condition, chronicity of her disease and unfortunate prognosis. Try to maximize patient's medical treatment with the use of albumin during her stay in the hospital with improvement of her lower extremity edema. Patient's Maddrey discriminate factor was 43.7 with poor prognosis. Patient was started on prednisolone 40 mg daily with the use of these maximized therapies patient did improve with her edema as well as bilirubin has come down mildly approximately one-point daily. Patient requested that gastroenterology evaluate her while she is here in the hospital since she was unable to obtain outpatient appointment. Gastroenterology was consulted who indicated that patient does have very poor prognosis with her young age and significant disease. Recommend continuation of the steroids. Patient has had recent colonoscopy and endoscopy. Patient was indicated that she is having bloody stools likely secondary to hemorrhoids. Patient's hemoglobin remained stable during the hospitalization and did not require any transfusions. Patient also brought to the nursing attention that she had injured her left hand fourth digit, x-ray was performed which did show possibility of tiny nondisplaced avulsion fracture of the proximal portion of the left fourth middle phalanx. Patient is in a finger splint at this time. Patient is very apprehensive about going home. I do sympathize with her because of her significant condition and prognosis. I discussed with her that her options would include being evaluated for possible transplant. Notified her that she would have to obtain a outpatient GI doctor in order to contacted transplant center at either [facility] or [facility] to arrange consultation appointment. Also discussed with her that if treatment cannot be found and patient is not a candidate for transplant and she could consider hospice for end-of-life care. Rather extensive conversations were had today with the patient and mother at bedside. They had a plethoric of questions concerning her condition and all questions were answered. patient indicates that she does not have an outpatient primary medical doctor and/or the GI physician does not take her insurance. I notified her that she would have to contact her insurance company to get a list of appropriate physicians in order to make appointments. Patient is also requesting consult with case management to help arrange social security benefits. I have spoken with clinical case manager and she did talk to the patient and give them information. Clinically the patient is stabilized. We have maximize medical treatment for her chronic medical illnesses. Physical therapy was consulted and the patient actually doing quite well ambulating over 90 feet with her walker, also take care of herself without the use of walker in the room. We will plan discharge accordingly. - Time Spent with Patient Total time spent providing and/or coordinating discharge services: Greater than 30 minutes - Quality: VTE Deep Vein Thrombosis/Pulmonary Embolism Present on Admission: No Exam Vital signs: Vital Signs 12/09/17 15:33 12/09/17 20:00 12/10/17 00:00 Temperature 97 F L 96.1 F L 97.3 F L Pulse Rate 73 71 64 Respiratory Rate 20 20 20 Blood Pressure 92/50 L 99/54 L 91/53 L Pulse Oximetry 97 100 97 12/10/17 08:00 Temperature 96.8 F L Pulse Rate 74 Respiratory Rate 12 Blood Pressure 101/58 L Pulse Oximetry 97 Intake & Output 12/09/17 12/10/17 12/10/17 18:59 06:59 18:59 Intake Total 1090 / 1090 290 / 290 Balance 1090 / 1090 290 / 290 Weight 88.3 kg Intake: IV 50 / 50 50 / 50 Flexbumin 25% Inj 50 ML @ 60 50 / 50 50 / 50 mls/hr IV.SIG Q12H JENNIFER Rx#: [id number] Oral 1040 / 1040 240 / 240 Other: # Voids 2 1 Date of Last Bowel Movement 12/08/17 # Bowel Movements 1 1 Narrative: GENERAL: Well-developed, well-nourished, in no acute distress. alert and orientated HEENT: Head is normocephalic without any lesions or masses noted. Facial features are symmetric. Eyes:Extraocular muscles are intact. Conjunctivae and sclera are anicteric. NECK: Supple without any masses. Trachea midline no deviation. No JVD, CARDIAC: Regular rhythm, regular rate. S1/S2 are heard. No murmurs gallops or rubs. LUNGS: Clear to auscultation bilaterally. No wheeze, rhonchi or rales. No use of accessory muscles on inspiration or expiration. ABDOMEN: Soft, nontender. Nondistended. Bowel sounds heard in all 4 quadrants. No organomegaly or masses. Negative rebound, negative guarding EXTREMITIES: 1+ edema noted in bilateral lower extremities, pulses are equal bilaterally. No cyanosis or clubbing NEUROLOGY: Mood and affect appear appropriate. Cranial nerves II through XII grossly intact. Moving all extremities, speech is clear SKIN: Patient has significant jaundice, patient does have multiple bruises Results Procedures completed during hospitalization: None Labs on day of discharge: Labs from last 24 hours 12/10/17 12/10/17 07:15 07:15 CBC w Diff Slide review pending WBC 15.0 H RBC 2.47 L Hgb 9.0 L Hct 25.9 L MCV 104.7 H MCH 36.3 H MCHC 34.7 RDW 14.3 Plt Count 168 D MPV 8.2 WBC Differential Manual diff final Seg Neuts % (Manual) 91 H Band Neuts % (Manual) 2 Lymphocytes % (Manual) 3 L Monocytes % (Manual) 3 Eosinophils % (Manual) 1 Abs Neuts (Manual) 14.0 H Differential Comment . Sodium 138 Potassium 4.3 Chloride 108 H Carbon Dioxide 17.5 L Anion Gap 13 BUN 25 H Creatinine 1.60 H Estimated GFR 37 L Random Glucose 91 Calcium 7.5 L Total Bilirubin 20.1 H AST 88 H ALT 21 Alkaline Phosphatase 140 H Total Protein 6.3 L Albumin 1.7 L - Impressions ITS Impressions Chest X-Ray 12/08/17 00:50 CONCLUSION: Underinflation with mild atelectasis at the lung bases. Otherwise, no acute cardiopulmonary abnormality is identified. Abdomen/Pelvis CT 12/08/17 01:45 CONCLUSION: 1. Marked hepatomegaly with steatosis. A recanalized paraumbilical vein and marked splenomegaly indicate portal hypertension. 2. There is a trace free fluid/ascites in the abdomen and pelvis. This is also likely related to portal hypertension. 3. Anasarca. Finger X-Ray 12/09/17 00:00 CONCLUSION: Minimal irregularity involving the dorsal aspect of the proximal portion of the left fourth middle phalanx raising the possibility of tiny nondisplaced avulsion fracture. Clinical correlation is recommended. Discharge Plan - Discharge Disposition Patient Disposition: 01 Discharge Home - Discharge Condition Condition: Fair - Discharge Order Discharge Orders: Discharge Order (Routine); Ordered 12/10/17 Ordered By: [address] - Discharge Details Anticipated Discharge Date: 12/10/17 - Physicians Team Primary Care Provider: Missy Valadez Attending Provider: Alphonso Knight Other Providers: Jesus Ramos MD
== END 2017-12-10 13:39 | disposition home or self-care (01) ==
LOC: PHED 22:22 → PHEDA 22:22 → PH3 12-08 04:18
PROVIDERS: ADMIT Hospitalist; ATTEND Hospitalist
DX: K64.9 Unspecified hemorrhoids; K70.30 Alcoholic cirrhosis of liver without ascites; D64.9 Anemia, unspecified; E43 Unspecified severe protein-calorie malnutrition; G62.9 Polyneuropathy, unspecified; F10.10 Alcohol abuse, uncomplicated; K76.6 Portal hypertension; K21.9 Gastro-esophageal reflux disease without esophagitis; J98.11 Atelectasis; N28.9 Disorder of kidney and ureter, unspecified; I95.9 Hypotension, unspecified; Z82.49 Family history of ischemic heart disease and other diseases of the circulatory system; E78.5 Hyperlipidemia, unspecified; D68.4 Acquired coagulation factor deficiency; R94.31 Abnormal electrocardiogram [ECG] [EKG]; R16.1 Splenomegaly, not elsewhere classified; E80.7 Disorder of bilirubin metabolism, unspecified; K70.40 Alcoholic hepatic failure without coma; F17.210 Nicotine dependence, cigarettes, uncomplicated; Z91.19 Patient's noncompliance with other medical treatment and regimen